=== PATIENT | female | born 1955 | race Caucasian/White ===

== ENCOUNTER → 2016-10-16 | Outpatient (CLI) | payer BC ==
[2016-10-16 09:50] LABS: ALT 37 U/L (9-52); AST 21 U/L (14-36); Alkaline Phosphatase 68 U/L (38-126); Anion Gap 9 mmol/L; Blood Urea Nitrogen 26 mg/dL (7-17); Carbon Dioxide 27 mmol/L (22-30); Chloride 107 mmol/L (98-107); Cholesterol 191 mg/dL (<200); Glucose 98 mg/dL (74-99); HDL Cholesterol 67 mg/dL (40-60); Non-African American GFR(MDRD) >60 (>60 ml/min/1.73 sqM); Potassium 4.6 mmol/L (3.5-5.1); Sodium 143 mmol/L (137-145); Total Bilirubin 0.7 mg/dL (0.2-1.3); Total Protein 6.7 g/dL (6.3-8.2); Triglycerides 63 mg/dL (<150)
== END ==
LOC: LABWHC1 08:21
PROVIDERS: ATTEND Family Medicine
DX: E78.2 Mixed hyperlipidemia (principal); I10 Essential (primary) hypertension
CPT/HCPCS: 36415; 80053; 80061

== ENCOUNTER → 2016-11-01 | Outpatient (CLI) | payer BC ==
--- NOTE | 2016-11-02 14:16 | MM ---
Reason for exam: screening (asymptomatic). Last mammogram was performed 16 years and 2 months ago. Physical Findings: A clinical breast exam by your physician is recommended on an annual basis and results should be correlated with mammographic findings. MG Screening Mammo w CAD Bilateral CC and MLO view(s) were taken. Prior study comparison: July 09, 2013, mammogram, performed at [facility]. April 24, 2011, mammogram, performed at [facility]. There are scattered fibroglandular densities. No significant changes when compared with prior studies. ASSESSMENT: Benign, BI-RAD 2 RECOMMENDATION: Routine screening mammogram of both breasts in 1 year.
== END | disposition home or self-care (01) ==
LOC: RADMAMWWP 10:09
PROVIDERS: ATTEND Family Medicine
DX: Z12.31 Encounter for screening mammogram for malignant neoplasm of breast (principal)

== ENCOUNTER → 2017-11-24 | Outpatient (CLI) | payer BC ==
[2017-11-24 09:24] LABS: ALT 70 U/L (9-52); AST 37 U/L (14-36); Alkaline Phosphatase 108 U/L (38-126); Anion Gap 13 mmol/L; Blood Urea Nitrogen 18 mg/dL (7-17); Carbon Dioxide 28 mmol/L (22-30); Chloride 104 mmol/L (98-107); Cholesterol 185 mg/dL (<200); Glucose 115 mg/dL (74-99); HDL Cholesterol 60 mg/dL (40-60); LDL Cholesterol,Calculated 110 mg/dL (0-99); Potassium 4.3 mmol/L (3.5-5.1); Sodium 145 mmol/L (137-145); Total Bilirubin 0.7 mg/dL (0.2-1.3); Total Protein 6.4 g/dL (6.3-8.2); Triglycerides 73 mg/dL (<150)
== END | disposition home or self-care (01) ==
LOC: LABWHC1 08:34
PROVIDERS: ATTEND Nurse Practitioner Family
DX: I10 Essential (primary) hypertension (principal)
CPT/HCPCS: 36415; 80053; 80061

== ENCOUNTER → 2018-02-18 | Outpatient (CLI) | payer BC ==
[2018-02-18 15:55] LABS: Basophils % (A) 0 %; Eosinophils # (A) 0.2 k/uL (0-0.7); Eosinophils % (A) 3 %; HGB 12.6 gm/dL (11.4-16.0); Lymphocytes # (A) 1.7 k/uL (1.0-4.8); Lymphocytes % (A) 24 %; MCH 31.5 pg (25.0-35.0); MCV 95.4 fL (80.0-100.0); Mean Platelet Volume 8.1; Monocytes # (A) 0.4 k/uL (0-1.0); Monocytes % (A) 6 %; Neutrophils # (A) 4.4 k/uL (1.3-7.7); Neutrophils % (A) 64 %; Platelet Count 269 k/uL (150-450); RBC 3.99 m/uL (3.80-5.40); RDW 12.8 % (11.5-15.5); WBC 6.9 k/uL (3.8-10.6)
[2018-02-18 16:02] LABS: ALT 60 U/L (9-52); AST 24 U/L (14-36); Alkaline Phosphatase 78 U/L (38-126); Anion Gap 7 mmol/L; Blood Urea Nitrogen 17 mg/dL (7-17); Calcium 9.6 mg/dL (8.4-10.2); Carbon Dioxide 29 mmol/L (22-30); Chloride 105 mmol/L (98-107); Glucose 136 mg/dL (74-99); Potassium 4.2 mmol/L (3.5-5.1); Sodium 141 mmol/L (137-145); Total Bilirubin 0.5 mg/dL (0.2-1.3); Total Protein 6.5 g/dL (6.3-8.2)
[2018-02-18 19:54] LABS: Erythrocyte Sedimentation Rate 17 mm/hr (0-20)
== END | disposition home or self-care (01) ==
LOC: LABWHC1 15:28
PROVIDERS: ATTEND Physician Assistant
DX: K51.30 Ulcerative (chronic) rectosigmoiditis without complications (principal)
CPT/HCPCS: 36415; 80053; 85025; 85652

== ENCOUNTER → 2018-02-20 | Outpatient (CLI) | payer BC ==
--- NOTE | 2018-02-21 10:07 | CT ---
EXAMINATION TYPE: CT abdomen pelvis wo/w con DATE OF EXAM: 02/20/2018 COMPARISON: 04/05/2016 INDICATION: Left lower quadrant abdominal pain x few months. DLP: 2286 mGycm, Automated exposure control for dose reduction was used. CONTRAST: 100ml mL of Isovue 300. Study performed with Oral Contrast TECHNIQUE: Axial images were obtained from above the diaphragm to the pubic rami in the axial plane a t 5 mm thick sections. Reconstructed images are reviewed on the computer in the coronal plane. FINDINGS: Limited CT sections are obtained the lung bases. The lung bases are clear. CT ABDOMEN: Pre and postcontrast imaging is performed. No abnormal enhancement following contrast adm inistration is evident. Liver: Normal Spleen: Normal Pancreas: Normal Adrenal glands: The adrenal glands are normal. Gallbladder: Normal Kidneys: No masses are evident. No hydronephrosis is present. No cysts are present. There is exten sive calcification throughout the kidneys, likely on the basis of medullary sponge kidney. Larger nadine cifications would include a posterior lateral right upper lobe calcification measuring 0.2 cm and a r ounded calcification in mid right kidney measuring 0.5 cm. Larger calcification at the inferior pole left kidney measures 0.4 x 0.8 cm. Postcontrast imaging is performed. No abnormal enhancement kidneys is evident. Aorta: Vascular calcification is within the aorta. Inferior vena cava: Normal. CT PELVIS: There is a long segment of thickening through the proximal sigmoid colon. Scattered diverticuli are t hroughout the colon. Significant Inflammatory change adjacent is not identified, consider mild divert iculitis. Evaluation of the sigmoid colon is recommended. Neoplasm should be considered. Mild diverti culitis can be considered. There are loops of bowel which are incompletely distended or lack oral con trast limiting their evaluation. Fecal debris is within the colon Appendix: Normal as visualized. Urinary bladder: Decompressed with limited evaluation Genitourinary structures: Uterus and ovaries are not identified Osseous structures: No suspicious lytic or sclerotic lesions. IMPRESSIONS: 1. Proximal to mid sigmoid colon appears to have thickening. Mild diverticulitis can be considered. Underlying neoplasm could be considered. Additional workup is recommended. This is an interval change . 2. Extensive calcifications through the bilateral kidneys without evidence of obstruction. Correlate medullary sponge kidney
== END | disposition home or self-care (01) ==
LOC: RADCTMAIN 15:16
PROVIDERS: ATTEND Internal Medicine Gastroenterology
DX: N28.89 Other specified disorders of kidney and ureter (principal)
CPT/HCPCS: 74178; Q9967

== ENCOUNTER 2018-03-18 09:00 | Observation (INO) | payer BC ==
[2018-03-18] MEDS ORDERED: ASPIRIN 81 MG PO STA (09:14)
[2018-03-18] MEDS ORDERED: NITROGLYCERIN OINT 1 INCH/GM PACKET TOPICAL STA (09:14)
--- NOTE | 2018-03-18 09:20 | ED ---
General Adult HPI - General Chief complaint: Chest Pain Stated complaint: chest pain Time Seen by Provider: 03/18/18 09:00 Source: patient, RN notes reviewed Mode of arrival: wheelchair Limitations: no limitations - History of Present Illness Initial comments: This is a 63-year-old female presents emergency Department complaining of chest pressure for the last week. Patient states she's had multiple episodes sometimes lasting only a few minutes and others lasting up to an hour. Patient states she's often nauseated with the chest pressure as well as diaphoretic. Patient denies any shortness of breath or difficulty breathing. Patient denies any recent fever chills or cough. Patient can come in initially because she believed to be secondary to her hiatal hernia. Patient denies any abdominal pain patient denies any vomiting or diarrhea. Patient denies any lightheadedness dizziness or near syncopal episode. Patient denies any headache patient denies any numbness or weakness. Patient states currently she is having some pressure across her chest. - Related Data Home Medications Medication Instructions Recorded Confirmed Mesalamine [Asacol Hd] 1,600 mg PO TID 05/13/14 03/18/18 Ramipril [Altace] 10 mg PO BID 05/13/14 03/18/18 Atorvastatin [Lipitor] 20 mg PO HS 05/11/16 03/18/18 Cetirizine HCl [Zyrtec] 10 mg PO DAILY 05/11/16 03/18/18 Cholecalciferol [Vitamin D3] 2,000 unit PO DAILY 05/11/16 03/18/18 Dicyclomine [Bentyl] 20 mg PO TID 05/11/16 03/18/18 Acetaminophen [Tylenol] 650 mg PO Q4H PRN 03/18/18 03/18/18 Famotidine [Pepcid] 20 mg PO DAILY 03/18/18 03/18/18 Propylene Glycol/Peg 400/Pf 1 dropper BOTH EYES DAILY 03/18/18 03/18/18 [Systane 0.3-0.4% Eye Drops] amLODIPine [Norvasc] 5 mg PO DAILY 03/18/18 03/18/18 Allergies Allergy/AdvReac Type Severity Reaction Status Date / Time No Known Allergies Allergy Verified 03/18/18 10:18 Review of Systems ROS Statement: Those systems with pertinent positive or pertinent negative responses have been documented in the HPI. ROS Other: All systems not noted in ROS Statement are negative. Past Medical History Past Medical History: COPD, GERD/Reflux, Hyperlipidemia, Hypertension Additional Past Medical History / Comment(s): hx.ulcerative colitis, kidney stones, seasonal allergies, diverticulitis, History of Any Multi-Drug Resistant Organisms: None Reported Past Surgical History: Adenoidectomy, Hysterectomy, Tonsillectomy Additional Past Surgical History / Comment(s): lithotripsy,colonoscopy Past Anesthesia/Blood Transfusion Reactions: No Reported Reaction Past Psychological History: No Psychological Hx Reported Smoking Status: Former smoker Past Alcohol Use History: None Reported Past Drug Use History: None Reported - Past Family History Mother Family Medical History: No Reported History General Exam - General Exam Comments Initial Comments: GENERAL: Patient is well-developed and well-nourished. Patient is nontoxic and well- hydrated and is in mild distress. ENT: Neck is soft and supple. No significant lymphadenopathy is noted. Oropharynx is clear. Moist mucous membranes. Neck has full range of motion without eliciting any pain. EYES: The sclera were anicteric and conjunctiva were pink and moist. Extraocular movements were intact and pupils were equal round and reactive to light. Eyelids were unremarkable. PULMONARY: Unlabored respirations. Good breath sounds bilaterally. No audible rales rhonchi or wheezing was noted. CARDIOVASCULAR: Patient is tachycardic at about 110 beats a minute ABDOMEN: Soft and nontender with normal bowel sounds. No palpable organomegaly was noted. There is no palpable pulsatile mass. SKIN: Skin is clear with no lesions or rashes and otherwise unremarkable. NEUROLOGIC: Patient is alert and oriented x3. Cranial nerves II through XII are grossly intact. Motor and sensory are also intact. Normal speech, volume and content. Symmetrical smile. MUSCULOSKELETAL: Normal extremities with adequate strength and full range of motion. No lower extremity swelling or edema. No calf tenderness. LYMPHATICS: No significant lymphadenopathy is noted PSYCHIATRIC: Normal psychiatric evaluation. Patient appears mildly anxious Limitations: no limitations Course Vital Signs 03/18/18 03/18/18 09:02 09:55 Temperature 98.1 F Pulse Rate 103 H 100 Respiratory 20 18 Rate Blood Pressure 138/83 136/66 O2 Sat by Pulse 97 99 Oximetry Medical Decision Making - Medical Decision Making EKG shows sinus tachycardia at 111 bpm CA interval is 138 QRSs 80 QT interval 336 QTC is 456. Patient's EKG shows Q waves in the inferior leads. Chest x-ray showed no acute normalities. I spoke with Dr. Garcia he agreed to admit the patient admitted the patient wrote admitting orders. Because of the unstable angina picture of this patient with her clinical symptoms I started her on heparin. I continued heparin and aspirin and nitroglycerin on the floor. - Lab Data Result diagrams: 03/18/18 09:03/18/18 09:28 Lab Results 03/18/18 03/18/18 03/18/18 Range/Units 09:28 09:28 09: WBC 7.2 (3.8-10.6) k/uL RBC 4.36 (3.80-5.40) m/uL Hgb 13.5 (11.4-16.0) gm/dL Hct 40.5 (34.0-46.0) % MCV 92.9 (80.0-100.0) fL MCH 31.1 (25.0-35.0) pg MCHC 33.5 (31.0-37.0) g/dL RDW 12.6 (11.5-15.5) % Plt Count 239 (150-450) k/uL Neutrophils % 72 % Lymphocytes % 17 % Monocytes % 6 % Eosinophils % 2 % Basophils % 0 % Neutrophils # 5.2 (1.3-7.7) k/uL Lymphocytes # 1.3 (1.0-4.8) k/uL Monocytes # 0.4 (0-1.0) k/uL Eosinophils # 0.1 (0-0.7) k/uL Basophils # 0.0 (0-0.2) k/uL PT (9.0-12.0) sec INR (<1.2) APTT (22.0-30.0) sec Sodium 143 (137-145) mmol/L Potassium 4.0 (3.5-5.1) mmol/L Chloride 108 H (98-107) mmol/L Carbon Dioxide 25 (22-30) mmol/L Anion Gap 10 mmol/L BUN 20 H (7-17) mg/dL Creatinine 0.69 (0.52-1.04) mg/dL Est GFR (CKD-EPI)AfAm >90 (>60 ml/min/1.73 sqM) Est GFR (CKD-EPI)NonAf >90 (>60 ml/min/1.73 sqM) Glucose 133 H (74-99) mg/dL Calcium 9.3 (8.4-10.2) mg/dL Magnesium 2.0 (1.6-2.3) mg/dL Total Bilirubin 0.7 (0.2-1.3) mg/dL AST 33 (14-36) U/L ALT 37 (9-52) U/L Alkaline Phosphatase 74 (38-126) U/L Total Creatine Kinase 45 (30-135) U/L CK-MB (CK-2) 0.2 (0.0-2.4) ng/mL CK-MB (CK-2) Rel Index 0.4 Troponin I <0.012 (0.000-0.034) ng/mL Total Protein 6.9 (6.3-8.2) g/dL Albumin 4.2 (3.5-5.0) g/dL 03/18/18 Range/Units 09:28 WBC (3.8-10.6) k/uL RBC (3.80-5.40) m/uL Hgb (11.4-16.0) gm/dL Hct (34.0-46.0) % MCV (80.0-100.0) fL MCH (25.0-35.0) pg MCHC (31.0-37.0) g/dL RDW (11.5-15.5) % Plt Count (150-450) k/uL Neutrophils % % Lymphocytes % % Monocytes % % Eosinophils % % Basophils % % Neutrophils # (1.3-7.7) k/uL Lymphocytes # (1.0-4.8) k/uL Monocytes # (0-1.0) k/uL Eosinophils # (0-0.7) k/uL Basophils # (0-0.2) k/uL PT 9.7 (9.0-12.0) sec INR 1.0 (<1.2) APTT 23.5 (22.0-30.0) sec Sodium (137-145) mmol/L Potassium (3.5-5.1) mmol/L Chloride (98-107) mmol/L Carbon Dioxide (22-30) mmol/L Anion Gap mmol/L BUN (7-17) mg/dL Creatinine (0.52-1.04) mg/dL Est GFR (CKD-EPI)AfAm (>60 ml/min/1.73 sqM) Est GFR (CKD-EPI)NonAf (>60 ml/min/1.73 sqM) Glucose (74-99) mg/dL Calcium (8.4-10.2) mg/dL Magnesium (1.6-2.3) mg/dL Total Bilirubin (0.2-1.3) mg/dL AST (14-36) U/L ALT (9-52) U/L Alkaline Phosphatase (38-126) U/L Total Creatine Kinase (30-135) U/L CK-MB (CK-2) (0.0-2.4) ng/mL CK-MB (CK-2) Rel Index Troponin I (0.000-0.034) ng/mL Total Protein (6.3-8.2) g/dL Albumin (3.5-5.0) g/dL Critical Care Time Critical Care Time: Yes Total Critical Care Time: 35 Disposition Clinical Impression: Unstable angina pectoris Disposition: ADMITTED IP TO THIS HOSP Referrals: Hunter Georges III, MD [Primary Care Provider] - 1-2 days Time of Disposition: 11:04
[2018-03-18 09:41] LABS: Basophils % (A) 0 %; Eosinophils # (A) 0.1 k/uL (0-0.7); Eosinophils % (A) 2 %; HCT 40.5 % (34.0-46.0); HGB 13.5 gm/dL (11.4-16.0); Lymphocytes # (A) 1.3 k/uL (1.0-4.8); Lymphocytes % (A) 17 %; MCH 31.1 pg (25.0-35.0); MCHC 33.5 g/dL (31.0-37.0); MCV 92.9 fL (80.0-100.0); Mean Platelet Volume 7.3; Monocytes # (A) 0.4 k/uL (0-1.0); Monocytes % (A) 6 %; Neutrophils # (A) 5.2 k/uL (1.3-7.7); Neutrophils % (A) 72 %; Platelet Count 239 k/uL (150-450); RBC 4.36 m/uL (3.80-5.40); RDW 12.6 % (11.5-15.5); WBC 7.2 k/uL (3.8-10.6)
--- NOTE | 2018-03-18 09:47 | P.CRDCN ---
History of Present Illness History of present illness: This is Dr. Massey dictating a consult on this patient The patient was interviewed and examined by me in the emergency room room #24 IMPRESSION / ASSESSMENT: Recurrent pressure-like sensation in the mid sternum spreading leftwards and sometimes all across the chest Pounding sensation in the heart Twelve-lead ECG when compared with that from 2010 shows a 0[address] depression with T-wave inversions in the inferior lateral leads Hypertension, on ramipril 10 mg twice daily and amlodipine Dyslipidemia, on atorvastatin 20 mg by mouth daily Elevated CPKs on a higher doses of atorvastatin the past Recent colitis/diverticulitis and antibiotics were recently stopped but no severe diarrhea at this point PLAN: 3 serial cardiac enzymes CMP CBC Start home medications including enalapril and amlodipine atorvastatin, start baby aspirin D-dimer HPI Recurrent pressure-like sensation/heaviness in the mid sternum mid chest area that spreads to was the left side mostly but then also all across the front of the chest. Recurrent episodes for the last 3 weeks. She feels she has to burp and after doing so she only gets partial relief. Pounding sensation in the chest but no loss of consciousness. Possibly a little short of breath ROS: No fever chills or rigors, no cough, phlegm or expectoration, no nausea, vomiting or diarrhea, recent bout of loose stools and colitis which seems to have resolved no hematuria, dysuria, no musculoskeletal complaints, no strokes or seizures, no skin lesions. EXAMINATION On examination Afebrile 98.1F, pulse rate 103 bpm, blood pressure 138/83 mmHg, normal pulse ox Normal heart sounds no murmurs no gallops no rub Normal breath sounds no rhonchi no crackles Abdomen is soft nontender Extremities warm no edema No JVD REVIEW OF LABS, ECG ECG shows new changes from 2010 Hemoglobin 13.5 white count normal Past Medical History Past Medical History: COPD, GERD/Reflux, Hyperlipidemia, Hypertension Additional Past Medical History / Comment(s): hx.ulcerative colitis, kidney stones, seasonal allergies, diverticulitis, History of Any Multi-Drug Resistant Organisms: None Reported Past Surgical History: Adenoidectomy, Hysterectomy, Tonsillectomy Additional Past Surgical History / Comment(s): lithotripsy,colonoscopy Past Anesthesia/Blood Transfusion Reactions: No Reported Reaction Past Psychological History: No Psychological Hx Reported Smoking Status: Former smoker Past Alcohol Use History: None Reported Past Drug Use History: None Reported - Past Family History Mother Family Medical History: No Reported History Medications and Allergies Home Medications Medication Instructions Recorded Confirmed Type Mesalamine [Asacol Hd] 1,600 mg PO TID 05/13/14 05/11/16 History Montelukast [Singulair] 10 mg PO HS 05/13/14 05/11/16 History Omeprazole [PriLOSEC] 20 mg PO DAILY PRN 05/13/14 05/11/16 History Ramipril [Altace] 5 mg PO BID 05/13/14 05/11/16 History Atorvastatin [Lipitor] 20 mg PO HS 05/11/16 05/11/16 History Cetirizine HCl [Zyrtec] 10 mg PO DAILY 05/11/16 05/11/16 History Cholecalciferol [Vitamin D3] 2,000 unit PO DAILY 05/11/16 05/11/16 History Dicyclomine [Bentyl] 10 mg PO Q4-6H PRN 05/11/16 05/11/16 History Lipo-Favonoid 1 tab PO DAILY 05/11/16 05/11/16 History Magnesium 200 mg PO DAILY 05/11/16 05/11/16 History Allergies Allergy/AdvReac Type Severity Reaction Status Date / Time No Known Allergies Allergy Verified 03/18/18 09:04 Physical Exam Vitals: Vital Signs Temp Pulse Resp BP Pulse Ox 03/18/18 09:02 98.1 F 103 H 20 138/83 97 Intake and Output 03/17/18 03/18/18 03/18/18 22:59 06:59 14:59 Other: Weight 84.822 kg Results 03/18/18 09:28 CBC 03/18/18 Range/Units 09:28 WBC 7.2 (3.8-10.6) k/uL RBC 4.36 (3.80-5.40) m/uL Hgb 13.5 (11.4-16.0) gm/dL Hct 40.5 (34.0-46.0) % Plt Count 239 (150-450) k/uL Intake and Output 03/17/18 03/18/18 03/18/18 22:59 06:59 14:59 Other: Weight 84.822 kg Patient Weight 03/19/18 06:59 Weight 84.822 kg 03/18/18 09:28
[2018-03-18 09:52] LABS: ALT 37 U/L (9-52); AST 33 U/L (14-36); Albumin 4.2 g/dL (3.5-5.0); Alkaline Phosphatase 74 U/L (38-126); Anion Gap 10 mmol/L; Blood Urea Nitrogen 20 mg/dL (7-17); Calcium 9.3 mg/dL (8.4-10.2); Carbon Dioxide 25 mmol/L (22-30); Chloride 108 mmol/L (98-107); Glucose 133 mg/dL (74-99); Sodium 143 mmol/L (137-145); Total Bilirubin 0.7 mg/dL (0.2-1.3); Total Protein 6.9 g/dL (6.3-8.2)
[2018-03-18 09:53] LABS: Partial Thromboplastin Time 23.5 sec (22.0-30.0); Prothrombin Time 9.7 sec (9.0-12.0)
--- NOTE | 2018-03-18 09:57 | XR ---
EXAMINATION TYPE: XR chest 2V DATE OF EXAM: 03/18/2018 COMPARISON: 09/22/2010 TECHNIQUE: PA and lateral views submitted. HISTORY: Chest pain FINDINGS: The lungs are clear and there is no pneumothorax, pleural effusion, or focal pneumonia. Biapical pl eural thickening. Hyperinflation is COPD. Chronic rib deformities noted. IMPRESSION: 1. No acute process.
[2018-03-18 10:12] LABS: Creatine Kinase 45 U/L (30-135)
[2018-03-18 10:24] LABS: Creatine Kinase MB 0.2 ng/mL (0.0-2.4); Troponin I <0.012 ng/mL (0.000-0.034)
[2018-03-18] MEDS ORDERED: ATORVASTATIN 20 MG TAB PO SCH ×3 (11:00→21:00)
[2018-03-18] MEDS ORDERED: HEPARIN SODIUM,PORCINE 5,000 UNIT/ML 1 ML VIAL IV ONE (11:04)
[2018-03-18] MEDS ORDERED: HEPARIN SOD,PORK IN 0.45% NACL 25,000 UNIT in 0.45% NACL 1 500ML.BAG IV SCH (11:15)
[2018-03-18] MEDS ORDERED: NITROGLYCERIN SL TABS 0.4 MG TAB SUBLINGUAL PRN (11:33)
[2018-03-18] MEDS: SODIUM CHLORIDE 0.9% 1,000 ML IV SCH (11:50)
[2018-03-18] MEDS: METOPROLOL TARTRATE 25 MG TAB PO SCH ×2 (12:00→20:24)
[2018-03-18] MEDS: LISINOPRIL 20 MG TAB PO SCH (12:00)
[2018-03-18] MEDS ORDERED: ACETAMINOPHEN TAB 325 MG TAB PO PRN (12:44)
[2018-03-18] MEDS: NITROGLYCERIN OINT 1 INCH/GM PACKET TOPICAL SCH ×2 (13:03→17:24)
--- NOTE | 2018-03-18 13:33 | P.HPIM ---
History of Present Illness 63-year-old pleasant female came in with epigastric burning sensation patient is a recent hospital physician for diverticulitis may have stress ulcerations which is causing gastro-esophageal reflux disease patient the pain is burning sensation associated with the nausea precipitated by food. Patient has multiple such episodes last 2-3 days and the last for a few hours mild to moderate in severity patient was bit diaphoretic as well denied any shortness of breath orthopnea patient had any fever chills cough patient chest pain is nonpruritic. Patient has an elevated d-dimer because of which is CAT scan was ordered by cardiology. Patient will also comparing of palpitations patient is in fact tachycardic sinus tachycardia patient was started on Norvasc about the few months ago may be contributing to her sinus tachycardia considering her tachycardia related d-dimer it's appropriate to obtain a CAT scan to rule out pulmonary embolism. But her tachycardia is mostly secondary to calcium channel ethel which is being discontinued and metoprolol was added instead. Patient is on CHATO inhibitor for blood pressures which is being continued. We'll rule out acute coronary syndromes. Review of Systems REVIEW OF SYSTEMS: CONSTITUTIONAL: No fever, no malaise, no fatigue. HEENT: No recent visual problems or hearing problems. Denied any sore throat. CARDIOVASCULAR: No orthopnea, PND, no syncope. PULMONARY: No shortness of breath, no cough, no hemoptysis. GASTROINTESTINAL: No diarrhea, no vomiting, no abdominal pain. Normoactive bowel sounds. NEUROLOGICAL: No headaches, no weakness, no numbness. HEMATOLOGICAL: Denies any bleeding or petechiae. GENITOURINARY: Denies any burning micturition, frequency, or urgency. MUSCULOSKELETAL/RHEUMATOLOGICAL: Denies any joint pain, swelling, or any muscle pain. ENDOCRINE: Denies any polyuria or polydipsia. The rest of the 14-point review of systems is negative. Past Medical History Past Medical History: COPD, Eye Disorder, GERD/Reflux, Hyperlipidemia, Hypertension, Osteoarthritis (OA), Renal Disease Additional Past Medical History / Comment(s): Ulcerative colitis, diverticulitis , benign colon polyps, nephrolithiasis, starting of bilateral cataracts, L leg varicosity, seasonal allergies. History of Any Multi-Drug Resistant Organisms: None Reported Past Surgical History: Adenoidectomy, Hysterectomy, Tonsillectomy Additional Past Surgical History / Comment(s): lithotripsies,colonoscopy with polypectomy Past Anesthesia/Blood Transfusion Reactions: No Reported Reaction Smoking Status: Former smoker - Past Family History Mother Family Medical History: Cancer Additional Family Medical History / Comment(s): Pt believes her mother had throat cancer. Father Family Medical History: Myocardial Infarction ([place]) Additional Family Medical History / Comment(s): Father at the age of 83 yrs from a [place] Medications and Allergies Home Medications Medication Instructions Recorded Confirmed Type Mesalamine [Asacol Hd] 1,600 mg PO TID 05/13/14 03/18/18 History Ramipril [Altace] 10 mg PO BID 05/13/14 03/18/18 History Atorvastatin [Lipitor] 20 mg PO HS 05/11/16 03/18/18 History Cetirizine HCl [Zyrtec] 10 mg PO DAILY 05/11/16 03/18/18 History Cholecalciferol [Vitamin D3] 2,000 unit PO DAILY 05/11/16 03/18/18 History Dicyclomine [Bentyl] 20 mg PO TID 05/11/16 03/18/18 History Acetaminophen [Tylenol] 650 mg PO Q4H PRN 03/18/18 03/18/18 History Famotidine [Pepcid] 20 mg PO DAILY 03/18/18 03/18/18 History Propylene Glycol/Peg 400/Pf 1 dropper BOTH EYES DAILY 03/18/18 03/18/18 History [Systane 0.3-0.4% Eye Drops] amLODIPine [Norvasc] 5 mg PO DAILY 03/18/18 03/18/18 History Allergies Allergy/AdvReac Type Severity Reaction Status Date / Time No Known Allergies Allergy Verified 03/18/18 10:18 Physical Exam Vitals: Vital Signs Temp Pulse Pulse Resp BP BP Pulse Ox 03/18/18 12:10 98.1 F 102 H 18 134/80 95 03/18/18 12:01 97.8 F 109 H 16 110/62 96 03/18/18 11:12 98 16 138/65 98 03/18/18 09:55 100 18 136/66 99 03/18/18 09:02 98.1 F 103 H 20 138/83 97 Intake and Output 03/17/18 03/18/18 03/18/18 22:59 06:59 14:59 Other: Weight 83.9 kg PHYSICAL EXAMINATION: GENERAL: The patient is alert and oriented x3, not in any acute distress. Well developed, well nourished. HEENT: Pupils are round and equally reacting to light. EOMI. No scleral icterus. No conjunctival pallor. Normocephalic, atraumatic. No pharyngeal erythema. No thyromegaly. CARDIOVASCULAR: S1 and S2 present. No murmurs, rubs, or gallops. PULMONARY: Chest is clear to auscultation, no wheezing or crackles. ABDOMEN: Soft, nontender, nondistended, normoactive bowel sounds. No palpable organomegaly. MUSCULOSKELETAL: No joint swelling or deformity. EXTREMITIES: No cyanosis, clubbing, or pedal edema. NEUROLOGICAL: Gross neurological examination did not reveal any focal deficits. SKIN: No rashes. Results CBC & Chem 7: 03/18/18 09:28 03/18/18 09:28 Labs: Abnormal Lab Results - Last 24 Hours (Table) 03/18/18 03/18/18 Range/Units 09:28 09:28 D-Dimer 1.13 H (<0.60) mg/L FEU Chloride 108 H (98-107) mmol/L BUN 20 H (7-17) mg/dL Glucose 133 H (74-99) mg/dL Thrombosis Risk Factor Assmnt - Choose All That Apply Any of the Below Risk Factors Present?: Yes Each Factor Represents 1 point: Abnormal pulmonary function (COPD), Obesity ( BMI >25) Other Risk Factors: Yes Each Risk Factor Represents 2 Points: Age 61-74 years Other congenital or acquired thrombophilia - If yes, enter type in comment: No Thrombosis Risk Factor Assessment Total Risk Factor Score: 4 Thrombosis Risk Factor Assessment Level: Moderate Risk Assessment and Plan Plan: -Epigastric abdominal pain and chest pain: Most probably gastroesophageal reflux disease, we will rule out acute medicine syndromes with the EKGs and troponins and cardiology evaluated the patient. Patient will be started on Protonix patient probably has stress ulcerations from her recent hospitalizations -Palpitations: Secondary to calcium channel ethel-amlodipine, patient was started on beta ethel and calcium channel ethel was discontinued -COPD without any acute exacerbation -Gastroesophageal reflux disease -hyperlipidemia next and-hypertension -History of ulcerative colitis with recent diverticulitis -Elevated d-dimer rule out PE as mentioned above -For above-mentioned chronic medical problems patient will be resumed and continued on appropriate home medications.
[2018-03-18] MEDS: PANTOPRAZOLE 40 MG/10 ML VIAL IVP SCH (14:53)
[2018-03-18 15:52] LABS: Creatine Kinase 37 U/L (30-135)
[2018-03-18] MEDS ORDERED: BALSALAZIDE DISODIUM 750 MG CAPSULE PO SCH (16:00)
[2018-03-18 16:06] LABS: Creatine Kinase MB <0.2 ng/mL (0.0-2.4); Troponin I <0.012 ng/mL (0.000-0.034)
[2018-03-18] MEDS: DICYCLOMINE 10 MG CAP PO SCH ×2 (17:22→20:25)
--- NOTE | 2018-03-18 18:36 | CT ---
EXAMINATION TYPE: CT angio chest with contrast and with 3-D reconstruction renderings DATE OF EXAM: 03/18/2018 5:04 PM COMPARISON: The liver is HISTORY: Shortness of breath and elevated d-dimer. CT DLP: 416 mGycm Automated exposure control for dose reduction was used. CONTRAST: CTA scan of the thorax is performed with IV Contrast, patient injected with 69ml mL of Isovue 370, pu lmonary embolism protocol. 3-D reconstructions. FINDINGS: LUNGS: The lungs are grossly clear, there is no concerning parenchymal mass or nodule identified. T here is no pleural effusion or pneumothorax seen. The tracheobronchial tree is patent. MEDIASTINUM: There is satisfactory enhancement of the pulmonary artery and its branches, there is no CT evidence for pulmonary embolism. There are no greater than 1 cm hilar or mediastinal lymph nodes. The aorta is unremarkable. No cardiomegaly. Left and right coronary calcifications noted. No perica rdial effusion is seen. OTHER: No additional significant abnormality is seen. IMPRESSION: 1. NO ACUTE PROCESS; SPECIFICALLY,NEGATIVE FOR PULMONARY EMBOLISM. 2. CORONARY CALCIFICATIONS NOTED.
[2018-03-18] MEDS ORDERED: HEPARIN SODIUM,PORCINE 5,000 UNIT/ML 1 ML VIAL IV PRN (18:45)
[2018-03-18] MEDS: ASACOL PO SCH ×2 (18:51→20:25)
[2018-03-18 19:46] VITALS: RESP 16
[2018-03-18 21:59] LABS: Creatine Kinase 38 U/L (30-135)
[2018-03-18 22:13] LABS: Creatine Kinase MB <0.2 ng/mL (0.0-2.4); Troponin I <0.012 ng/mL (0.000-0.034)
[2018-03-18 22:19] LABS: Cholesterol 209 mg/dL (<200); HDL Cholesterol 49 mg/dL (40-60); LDL Cholesterol,Calculated 122 mg/dL (0-99); Triglycerides 192 mg/dL (<150)
[2018-03-19] MEDS: NITROGLYCERIN OINT 1 INCH/GM PACKET TOPICAL SCH ×3 (05:45→14:11)
[2018-03-19] MEDS ORDERED: LORATADINE 10 MG TAB PO SCH (09:00)
[2018-03-19] MEDS ORDERED: ARTIFICIAL TEARS-HYPROMELLOSE DROPS 15 ML BTL BOTH EYES SCH (09:00)
[2018-03-19] MEDS ORDERED: FAMOTIDINE 20 MG TAB PO SCH (09:00)
[2018-03-19] MEDS ORDERED: ASPIRIN 325 MG TAB PO SCH (09:00)
[2018-03-19] MEDS ORDERED: AMINOPHYLLINE 500 MG/20 ML VIAL IV PRN (09:35)
[2018-03-19] MEDS ORDERED: REGADENOSON 0.4 MG/5 ML SYRINGE IV ONE (09:35)
[2018-03-19] MEDS: DICYCLOMINE 10 MG CAP PO SCH (10:17)
[2018-03-19] MEDS: PANTOPRAZOLE 40 MG/10 ML VIAL IVP SCH (10:17)
[2018-03-19] MEDS: ASACOL PO SCH (10:17)
[2018-03-19] MEDS ORDERED: AMINOPHYLLINE 500 MG/20 ML VIAL IV ONE (11:20)
[2018-03-19] MEDS ORDERED: CHOLECALCIFEROL 1,000 UNIT TAB PO SCH (12:00)
--- NOTE | 2018-03-19 12:19 | P.STRESS ---
- Stress Test Note Stress Test Results/Findings: Exam Performed: NM stress cardiolite complete Exam Date: 03/19/18 Reason for Exam: Chest Pain Height: 5 ft 6 in Weight: 83.461 kg Protocol: Lexiscan Cardiolite Stage: Duration of Exercise: Resting Heart Rate: 79 Resting Blood Pressure: 141/70 Maximum Achieved Heart Rate: 119 Maximum Achieved Blood Pressure: 165/75 85% PMHR: 133 100% PMHR: 156 METS: N/A Technologist Comment: 150 mg of Aminophylline administered Stress Test Results/Findings: This is a 63-year-old female was admitted to the hospital with complaints of chest pain and palpitations. She has history of hypertension, hypercholesterolemia and smoking history in the past. Stress data: Baseline EKG showed sinus rhythm with normal [place] and QRS duration. Blood pressure at rest is 140/70 with pulse rate of 79. A standard dose of Lexiscan was infused. EKGs taken during and after the exercise did not reveal any changes to suggest ischemia. Final impression: #1. Negative Lexiscan stress test #2. Report on the nuclear images to be given by the radiologist
--- NOTE | 2018-03-19 12:21 | NM ---
EXAMINATION TYPE: NM stress lexiscan cardiolite DATE OF EXAM: 03/19/2018 COMPARISON: NONE HISTORY: Chest pain TECHNIQUE: After the intravenous administration of 9.0 mCi Tc 99m Sestamibi - Cardiolite resting SPE CT images acquired 45 minutes post injection. The patient received 0.4mg Lexiscan, 24.0 mCi Tc 99m Sestamibi - Stress images obtained [address] injection FINDINGS: Review of stress and rest SPECT images demonstrates no distinct perfusion abnormality. Gated analysi s shows normal wall motion with an estimated left ventricular ejection fraction of 69 %. IMPRESSION: No scintigraphic evidence for reversible ischemia.
--- NOTE | 2018-03-19 12:34 | P.PN ---
Subjective Mrs. Corado seen and examined resting comfortably in bed with family at the bedside. She denies any ongoing chest pain, shortness of breath, dizziness or palpitations. Telemetry tracings have been unremarkable. D-dimer came in to be elevated yesterday and CTA chest was performed revealing no evidence of PE with coronary calcifications noted. Cardiac enzymes negative 3, LDL 122, HDL 49, triglycerides 1 9200 cholesterol 209. Blood pressure 107/69 heart rate 83 afebrile maintaining oxygen saturation on room air. Objective - Vital Signs Vital signs: Vital Signs Temp 98.3 F 03/19/18 07:54 Pulse 83 03/19/18 07:54 Resp 16 03/19/18 08:00 BP 107/69 03/19/18 07:54 Pulse Ox 95 03/19/18 07:54 Intake & Output 03/18/18 03/19/18 03/19/18 18:59 06:59 18:59 Intake Total 800.404 Balance 800.404 Weight 83.9 kg 83.461 kg Intake: Intake, IV Titration 140.404 Amount Heparin Sod,Pork in 0.45% 140.404 NaCl 25,000 unit In 0.45 % NaCl 1 500ml.bag @ 11.8 UNITS/KG/HR 20.01 mls/hr IV .Q24H SEBASTIEN Rx#: [id number] Oral 660 Other: Voiding Method Toilet Toilet # Voids 1 - Exam GENERAL: Well-appearing, well-nourished and in no acute distress. NECK: Supple without JVD or thyromegaly. LUNGS: Breath sounds clear to auscultation bilaterally. Respiration equal and unlabored. No wheezes, rales or rhonchi. HEART: Regular rate and rhythm without murmurs, rubs or gallops. S1 and S2 heard. EXTREMITIES: Normal range of motion, no edema. No clubbing or cyanosis. Peripheral pulses intact. - Labs CBC & Chem 7: 03/18/18 09:28 03/18/18 09:28 Labs: Abnormal Lab Results - Last 24 Hours (Table) 03/18/18 03/18/18 03/18/18 Range/Units 09:28 09:28 18:22 APTT 36.1 H (22.0-30.0) sec D-Dimer 1.13 H (<0.60) mg/L FEU Triglycerides 192 H (<150) mg/dL Cholesterol 209 H (<200) mg/dL LDL Cholesterol, Calc 122 H (0-99) mg/dL 03/19/18 Range/Units 00:40 APTT 94.7 H (22.0-30.0) sec D-Dimer (<0.60) mg/L FEU Triglycerides (<150) mg/dL Cholesterol (<200) mg/dL LDL Cholesterol, Calc (0-99) mg/dL Assessment and Plan Assessment: ASSESSMENT Chest pain, atypical. An acute coronary event has been ruled out. Hypertension, Dyslipidemia, intolerant to higher dose of statin in the past Recent colitis/diverticulitis, antibiotics complete one week ago PLAN An acute coronary event has been ruled out. Discontinue heparin infusion and Nitropaste. Perform Lexiscan stress test to assess for reversible cardiac ischemia. Dr. Massey discontinued amlodipine yesterday and started on lopressor 25 mg BID. If stress test is normal she is stable from a cardiac perspective. Follow up with Dr. Massey in 3-4 weeks. Nurse Practitioner note has been reviewed, I agree with a documented findings and plan of care. Patient was seen and examined.
[2018-03-19] MEDS: LISINOPRIL 20 MG TAB PO SCH (12:37)
[2018-03-19] MEDS: METOPROLOL TARTRATE 25 MG TAB PO SCH (12:37)
[2018-03-19] MEDS: SODIUM CHLORIDE 0.9% 1,000 ML IV SCH (12:39)
[2018-03-19 12:42] VITALS: BP 130/80; PULSE 95; TEMP 98.5
--- NOTE | 2018-03-19 13:41 | P.DS ---
Providers Date of admission: 03/18/18 11:34 Attending physician: Ignacio Garcia Consults: 03/18/18 11:34 Consult Physician Urgent Consulting Provider: [facility] Consult Reason/Comments: Unstable angina Do you want consulting provider notified?: Yes Primary care physician: Hunter Michelle [facility] Course: 63-year-old pleasant female came in with epigastric burning sensation patient is a recent hospital physician for diverticulitis may have stress ulcerations which is causing gastro-esophageal reflux disease patient the pain is burning sensation associated with the nausea precipitated by food. Patient has multiple such episodes last 2-3 days and the last for a few hours mild to moderate in severity patient was bit diaphoretic as well denied any shortness of breath orthopnea patient had any fever chills cough patient chest pain is nonpruritic. Patient has an elevated d-dimer because of which is CAT scan was ordered by cardiology. Patient will also comparing of palpitations patient is in fact tachycardic sinus tachycardia patient was started on Norvasc about the few months ago may be contributing to her sinus tachycardia considering her tachycardia related d-dimer it's appropriate to obtain a CAT scan to rule out pulmonary embolism. But her tachycardia is mostly secondary to calcium channel ethel which is being discontinued and metoprolol was added instead. Patient is on CHATO inhibitor for blood pressures which is being continued. We'll rule out acute coronary syndromes. 03/19/2018 Patient underwent stress test Lexiscan stress test which was negative for any inducible ischemia patient will be discharged today in stable medical condition to home, amlodipine will be discontinued because of tachycardia and patient was started on metoprolol instead. Assessment and Plan Plan: -Epigastric abdominal pain and chest pain: Most probably gastroesophageal reflux disease, stresses is negative -Palpitations: Secondary to calcium channel ethel-amlodipine, patient was started on beta ethel and calcium channel ethel was discontinued -COPD without any acute exacerbation -Gastroesophageal reflux disease -hyperlipidemia -hypertension -History of ulcerative colitis with recent diverticulitis -Elevated d-dimer rule out PE as mentioned above Patient Condition at Discharge: Serious Plan - Discharge Summary Discharge Rx Participant: No New Discharge Prescriptions: New Metoprolol Tartrate [Lopressor] 25 mg PO BID #60 tab Omeprazole [PriLOSEC] 40 mg PO AC-BRKFST #30 capsule. Continue Ramipril [Altace] 10 mg PO BID Mesalamine [Asacol Hd] 1,600 mg PO TID Dicyclomine [Bentyl] 20 mg PO TID Cholecalciferol [Vitamin D3] 2,000 unit PO DAILY Atorvastatin [Lipitor] 20 mg PO HS Cetirizine HCl [Zyrtec] 10 mg PO DAILY Propylene Glycol/Peg 400/Pf [Systane 0.3-0.4% Eye Drops] 1 dropper BOTH EYES DAILY Acetaminophen [Tylenol] 650 mg PO Q4H PRN PRN Reason: Pain Discontinued amLODIPine [Norvasc] 5 mg PO DAILY Famotidine [Pepcid] 20 mg PO DAILY Discharge Medication List Mesalamine [Asacol Hd] 1,600 mg PO TID 05/13/14 [History] Ramipril [Altace] 10 mg PO BID 05/13/14 [History] Atorvastatin [Lipitor] 20 mg PO HS 05/11/16 [History] Cetirizine HCl [Zyrtec] 10 mg PO DAILY 05/11/16 [History] Cholecalciferol [Vitamin D3] 2,000 unit PO DAILY 05/11/16 [History] Dicyclomine [Bentyl] 20 mg PO TID 05/11/16 [History] Acetaminophen [Tylenol] 650 mg PO Q4H PRN 03/18/18 [History] Propylene Glycol/Peg 400/Pf [Systane 0.3-0.4% Eye Drops] 1 dropper BOTH EYES DAILY 03/18/18 [History] Metoprolol Tartrate [Lopressor] 25 mg PO BID #60 tab 03/19/18 [Rx] Omeprazole [PriLOSEC] 40 mg PO AC-BRKFST #30 capsule. 03/19/18 [Rx] Follow up Appointment(s)/Referral(s): Zhen Massey MD [STAFF PHYSICIAN] - 04/10/18 10:45 am Hunter Georges III, MD [Primary Care Provider] - 1-2 days Patient Instructions/Handouts: Angina (DC) Discharge Disposition: HOME SELF-CARE
== END 2018-03-19 13:35 | disposition home or self-care (01) ==
LOC: EC 09:00 → 3OBS 11:34
PROVIDERS: ADMIT Internal Medicine; ATTEND Internal Medicine
DX: R10.13 Epigastric pain (principal); R07.89 Other chest pain; R00.2 Palpitations; R11.0 Nausea; R00.0 Tachycardia, unspecified; R61 Generalized hyperhidrosis; J44.9 Chronic obstructive pulmonary disease, unspecified; K21.9 Gastro-esophageal reflux disease without esophagitis; E78.5 Hyperlipidemia, unspecified; I10 Essential (primary) hypertension; R79.89 Other specified abnormal findings of blood chemistry; K51.90 Ulcerative colitis, unspecified, without complications; K57.92 Diverticulitis of intestine, part unspecified, without perforation or abscess without bleeding; J30.2 Other seasonal allergic rhinitis; N28.9 Disorder of kidney and ureter, unspecified; M19.90 Unspecified osteoarthritis, unspecified site; H26.9 Unspecified cataract; Z79.899 Other long term (current) drug therapy; Z87.442 Personal history of urinary calculi; Z87.891 Personal history of nicotine dependence; Z86.010 Personal history of colon polyps; Z82.49 Family history of ischemic heart disease and other diseases of the circulatory system; E66.9 Obesity, unspecified; Z68.29 Body mass index [BMI] 29.0-29.9, adult
CPT/HCPCS: 99291; 96365; 96376; 36415; 93005; 93017; 85379; 80061; 80053; 82550; 82553; 83735; 84484; 85025; 85610; 85730 ×2; 71046; 71275; 78452; G0378 ×2; A9500; J1644 ×2; J0280; J2785; C9113 ×2; Q9967; 96366; 96375

== ENCOUNTER → 2018-04-26 | Outpatient (CLI) | payer BC ==
[2018-04-26 08:55] LABS: HCT 40.2 % (34.0-46.0); HGB 13.3 gm/dL (11.4-16.0); MCH 31.2 pg (25.0-35.0); MCHC 33.1 g/dL (31.0-37.0); MCV 94.3 fL (80.0-100.0); Mean Platelet Volume 7.7; Platelet Count 251 k/uL (150-450); RBC 4.26 m/uL (3.80-5.40); RDW 12.6 % (11.5-15.5); WBC 5.2 k/uL (3.8-10.6)
[2018-04-26 19:37] LABS: Albumin 4.5 g/dL (3.80-4.90); Albumin/Globulin Ratio 2.5 (1.20-2.10); Calcium 9.3 mg/dL (8.7-10.3); Globulin 1.8 g/dL (2.1-3.7); LDL Cholesterol,Calculated 128.4 mg/dL (0.0-131.0); Potassium 4.6 mmol/L (3.5-5.5); Total Bilirubin 0.5 mg/dL (0.2-1.2); Total Protein 6.3 g/dL (6.2-8.2); VLDL Calculation 21.6 mg/dL (5.00-40.00)
== END | disposition home or self-care (01) ==
LOC: LABWHC1 08:19
PROVIDERS: ATTEND Nurse Practitioner Family
DX: I10 Essential (primary) hypertension (principal); E56.9 Vitamin deficiency, unspecified; E78.2 Mixed hyperlipidemia
CPT/HCPCS: 36415; 80053; 80061; 82306; 85027

== ENCOUNTER 2018-05-01 08:39 | Day surgery (SDC) | payer BC ==
[2018-04-29 10:52] VITALS: BMI 29.9
[~2018-05-01 08:39] MED LIST: HYDROmorphone 1 MG/ML 1 ML SYRINGE IVP PRN; LACTATED RINGERS 1,000 ML IV SCH
[2018-05-01 09:56] VITALS: RESP 16; TEMP 98
[2018-05-01] MEDS ORDERED: LIDOCAINE 1% 20 ML VIAL (10MG/ML) FOR IV START INTRADERMA ONE (09:56)
[2018-05-01] MEDS ORDERED: LIDOCAINE 1% INJ 10MG/ML (20 ML MDV) ONE (10:14)
[2018-05-01] MEDS ORDERED: PROPOFOL 10 MG/ML 20 ML VIAL IV ONE (10:14)
--- NOTE | 2018-05-01 10:44 | P.PCN ---
Date of Procedure: 05/01/18 Procedure(s) Performed: Brief history: Patient is a pleasant 63-year-old white female scheduled for an elective upper endoscopy as well as colonoscopy as a part of evaluation of epigastric pain, nausea vomiting for the last few weeks duration. She developed severe left lower quadrant abdominal pain and subsequently diagnosed with possible acute sigmoid diverticulitis and treated with antibiotics about 8 weeks ago. Since then she is been having GI upset with abdominal pain, nausea vomiting. Intermittent diarrhea with mucus in the stool. She also has long-standing history of Iritis and Has Been Maintained on Nasal, Which Remains in Clinical Remission. His Last Surveillance Colonoscopy Was 2 Years Ago and was normal Procedure performed: Esophagogastroduodenoscopy with biopsy Colonoscopy with biopsy Preoperative diagnosis: Abdominal pain, denies nausea vomiting of 8 weeks duration Recent episode of sigmoid diverticulitis Long-standing history of ulcerative colitis Anesthesia: MAC Procedure: After informed consent was obtained from the patient was brought into the endoscopy unit and IV sedation was administered by anesthesia under continuous monitoring. Initially upper endoscopy was done. The Olympus GF 160 video endoscope was inserted inserted into the mouth and esophagus intubated without any difficulty and was gradually advanced into the stomach and duodenum and carefully examined. The bulb and second part of the duodenum appeared normal. The scope was then withdrawn into the stomach adequately insufflated with air and upon careful examination the antrum and body, cardia and fundus appeared normal. The scope was then withdrawn into the esophagus. The GE junction was located at 40 cm to the incisors. It appeared regular with some erythema but no erosions or ulcerations. Biopsies were done from the distal esophagus. Rest of the esophagus appeared normal. Patient tolerated the procedure well. At this time the patient continued to remain sedation. Initial digital rectal examination was normal. Olympus CF 160 video colonoscope was then inserted into the rectum and gradually advanced and because of mucosal hypertrophy and mucosal thickening in this area , Iwas not able to advance the scope further. The scope was removed and a pediatric colonoscope was then inserted in the rectum and with gentle manipulation I was able to advance to the cecum without any difficulty. Careful examination was performed as the scope was gradually being withdrawn. The prep was fair.. The cecum, ascending colon, transverse colon, descending colon, appeared normal. There was short segment in the sigmoid colon extending from 20-35 cm from the anal verge with mucosal hypertrophy and thickening of the mucosal folds with some erythema identified consistent with focal segmental colitis probably elated to recent episode of sigmoid diverticulitis. No evidence of active ulcerative colitis seen. Multiple biopsies were done from this area. The distal sigmoid colon and rectum appeared normal. Scattered small diverticulosis seen. Retroflexion was performed in the rectum and no lesions were noted. Patient tolerated the procedure well. Impression: 1. Upper endoscopy revealed mild reflux esophagitis but no evidence of gastritis or peptic ulcer disease 2. Colonoscopy revealed focal segmental colitis involving the distal sigmoid colon from 20-35 cm from the anal verge with severe mucosal hypertrophy, mucosal thickening and patchy areas of erythema consistent with diverticular associated colitis. No evidence of active ulcerative colitis. Recommendations: Findings of this examination were discussed with the patient as well as her family. She was advised to follow with the biopsy results. She will continue with her current medications and she'll be seen in the office in 2 weeks.
[2018-05-01 11:02] VITALS: BP 140/70; PULSE 76
== END 2018-05-01 11:52 | disposition home or self-care (01) ==
LOC: ORWHC2ENDO 08:39
PROVIDERS: ATTEND Internal Medicine Gastroenterology
DX: K29.50 Unspecified chronic gastritis without bleeding (principal); K31.9 Disease of stomach and duodenum, unspecified; K21.0 Gastro-esophageal reflux disease with esophagitis; K57.30 Diverticulosis of large intestine without perforation or abscess without bleeding; K51.90 Ulcerative colitis, unspecified, without complications; Z87.19 Personal history of other diseases of the digestive system; I10 Essential (primary) hypertension; E78.5 Hyperlipidemia, unspecified; J44.9 Chronic obstructive pulmonary disease, unspecified; Z79.899 Other long term (current) drug therapy; Z87.891 Personal history of nicotine dependence; Z87.442 Personal history of urinary calculi
CPT/HCPCS: 88305; 45380; 43239; J2001; J2704

== ENCOUNTER → 2018-05-28 | Outpatient (CLI) | payer BC ==
--- NOTE | 2018-05-29 14:53 | MM ---
Reason for exam: screening (asymptomatic). Last mammogram was performed 1 year and 7 months ago. Physical Findings: A clinical breast exam by your physician is recommended on an annual basis and results should be correlated with mammographic findings. MG 3D Screening Mammo W/Cad Bilateral CC and MLO view(s) were taken. Prior study comparison: November 01, 2016, bilateral MG screening mammo w CAD. July 09, 2013, mammogram, performed at [facility]. The breast tissue is heterogeneously dense. This may lower the sensitivity of mammography. There is no discrete abnormality. No significant changes when compared with prior studies. ASSESSMENT: Negative, BI-RAD 1 RECOMMENDATION: Routine screening mammogram of both breasts in 1 year.
== END ==
LOC: RADMAMWWP 07:09
PROVIDERS: ATTEND Family Medicine
DX: Z12.31 Encounter for screening mammogram for malignant neoplasm of breast (principal)
CPT/HCPCS: 77063; 77067

== ENCOUNTER → 2018-10-29 | Outpatient (CLI) | payer BC ==
[2018-10-29 16:47] LABS: Albumin 4.4 g/dL (3.80-4.90); Albumin/Globulin Ratio 2.93 (1.60-3.17); Anion Gap 6.8 mmol/L (4.00-12.00); Calcium 9.1 mg/dL (8.7-10.3); Carbon Dioxide 28.2 mmol/L (21.6-31.8); Globulin 1.5 g/dL (1.6-3.3); LDL Cholesterol,Calculated 119.2 mg/dL (0.0-131.0); Potassium 4.6 mmol/L (3.5-5.5); Total Bilirubin 0.5 mg/dL (0.2-1.2); Total Protein 5.9 g/dL (6.2-8.2); VLDL Calculation 22.8 mg/dL (5.00-40.00)
== END | disposition home or self-care (01) ==
LOC: LABWHC1 08:07
PROVIDERS: ATTEND Nurse Practitioner Family
DX: E78.2 Mixed hyperlipidemia (principal); I10 Essential (primary) hypertension; Q61.5 Medullary cystic kidney
CPT/HCPCS: 36415; 80053; 80061

== ENCOUNTER → 2019-02-17 | Outpatient (CLI) | payer MEDICARE, BC ==
--- NOTE | 2019-02-17 13:31 | XR ---
KUB HISTORY: Calculus of kidney, bilateral kidney stones KUB submitted. Correlation to prior CT 02/10/2018 Calcification at the lower pole left kidney measures possibly 7 mm in greatest dimension. Small punct ate calcifications are scattered within the left kidney and right kidney consistent with medullary sp onge kidney. Suspect there is a dominant calcification in the upper pole the right kidney measuring a pproximately 5 mm. Mild degenerative disc changes are present in the visualized spine. No pneumoperit oneum or bowel obstruction. IMPRESSION: Bilateral nephrolithiasis, medullary sponge kidney.
== END ==
LOC: RADXRMAIN 11:20
PROVIDERS: ATTEND Family Medicine
DX: N20.0 Calculus of kidney (principal); Q61.5 Medullary cystic kidney
CPT/HCPCS: 74018

== ENCOUNTER → 2019-03-10 | Outpatient (CLI) | payer MEDICARE, BC | END | disposition home or self-care (01) | LOC: LABPAT 07:25 | PROVIDERS: ATTEND Urology | DX: Z01.812 Encounter for preprocedural laboratory examination (principal); N39.0 Urinary tract infection, site not specified; N20.0 Calculus of kidney | CPT/HCPCS: 36415; 87086 ==

== ENCOUNTER 2019-03-17 08:05 | Day surgery (SDC) | payer MEDICARE, BC ==
[2019-03-12 10:01] VITALS: BMI 29.4
--- NOTE | 2019-03-14 09:51 | P.GSHP ---
History of Present Illness H&P Date: 03/14/19 64 yo femalew with a long history of kidney stone disease SHe presented with left sided abdominal pain and a kub that shows 3 left renal stones WE discussed treatment options. SHe comes for eswl left. - Constitutional Constitutional: Denies chills, Denies fever - EENT Eyes: denies blurred vision, denies pain Ears, nose, mouth and throat: Denies headache, Denies sore throat - Cardiovascular Cardiovascular: Denies chest pain, Denies shortness of breath - Respiratory Respiratory: Denies cough, Denies 7 - Gastrointestinal Gastrointestinal: Denies abdominal pain, Denies diarrhea, Denies nausea, Denies vomiting - Genitourinary (Female) Genitourinary: Denies dysuria, Denies hematuria - Genitourinary (Male) Genitourinary: Denies dysuria, Denies hematuria - Musculoskeletal Musculoskeletal: Denies myalgias - Integumentary Integumentary: Denies pruritus, Denies rash - Neurological Neurological: Denies numbness, Denies weakness - Psychiatric Psychiatric: Denies anxiety, Denies depression - Endocrine Endocrine: Denies fatigue, Denies weight change Past Medical History Past Medical History: COPD, Eye Disorder, GERD/Reflux, Hyperlipidemia, Hypertension, Osteoarthritis (OA), Renal Disease Additional Past Medical History / Comment(s): Ulcerative colitis, diverticulitis, benign colon polyps, nephrolithiasis, starting of bilateral lindsay racts, L leg varicosity, seasonal allergies. History of Any Multi-Drug Resistant Organisms: None Reported Past Surgical History: Adenoidectomy, Hysterectomy, Tonsillectomy Additional Past Surgical History / Comment(s): lithotripsies,colonoscopy with polypectomy Past Anesthesia/Blood Transfusion Reactions: No Reported Reaction Smoking Status: Former smoker - Past Family History Mother Family Medical History: Cancer Additional Family Medical History / Comment(s): Pt believes her mother had throat cancer. Father Family Medical History: Myocardial Infarction ([place]) Additional Family Medical History / Comment(s): Father at the age of 83 yrs from a [place] Medications and Allergies Home Medications Medication Instructions Recorded Confirmed Type Ramipril [Altace] 10 mg PO BID 05/13/14 03/12/19 History Atorvastatin [Lipitor] 20 mg PO HS 05/11/16 03/12/19 History Cetirizine HCl [Zyrtec] 10 mg PO DAILY 05/11/16 03/12/19 History Dicyclomine [Bentyl] 20 mg PO TID 05/11/16 03/12/19 History Acetaminophen [Tylenol] 650 mg PO Q4H PRN 03/18/18 03/12/19 History Propylene Glycol/Peg 400/Pf 1 dropper BOTH EYES DAILY PRN 03/18/18 03/12/19 History [Systane 0.3-0.4% Eye Drop] Metoprolol Tartrate [Lopressor] 25 mg PO BID #60 tab 03/19/18 03/12/19 Rx L.acidoph,Paracasei, B.lactis 1 each PO DAILY 04/29/18 03/12/19 History [Probiotic] Balsalazide Disodium 2 tab PO DAILY 03/12/19 03/12/19 History HYDROcodone/APAP 5-325MG [[place] 1 tab PO Q4HR PRN 03/12/19 03/12/19 History 5-325] Montelukast [Singulair] 10 mg PO DAILY 03/12/19 03/12/19 History Omeprazole [PriLOSEC] 40 mg PO AC-BRKFST PRN 03/12/19 03/12/19 History Ondansetron HCl [Zofran] 4 mg PO DAILY PRN 03/12/19 03/12/19 History Allergies Allergy/AdvReac Type Severity Reaction Status Date / Time No Known Allergies Allergy Verified 03/12/19 09:50 Surgical - Exam - General well developed, well nourished, no distress - ENT no hearing loss - Respiratory normal expansion, normal respiratory effort - Cardiovascular Rhythm: regular - Abdomen Abdomen: soft, non tender - Neurologic normal coordination, normal sensation - Musculoskeletal normal gait, normal posture - Psychiatric oriented to time, oriented to person, oriented to place, speech is normal, memory intact Results - Imaging Abdominal x-ray: report reviewed, image reviewed Assessment and Plan Assessment: Impression: Left renal stones Plan: eswl left
[~2019-03-17 08:05] MED LIST changes: +DEXAMETHASONE SOD PHOSPHATE 10 MG/ML 1 ML VIAL IV ONE; -HYDROmorphone 1 MG/ML 1 ML SYRINGE IVP PRN; +LIDOCAINE 1% 20 ML VIAL (10MG/ML) FOR IV START INTRADERMA PRN; +ONDANSETRON 4 MG/2 ML VIAL IVP ONE; +Pre Op ABX Message 1 EACH MISC MISCELLANE ONE
--- NOTE | 2019-03-17 08:39 | XR ---
EXAMINATION TYPE: XR KUB DATE OF EXAM: 03/17/2019 8:12 AM CLINICAL HISTORY: Presurgical study, left-sided kidney stones. TECHNIQUE: Two supine KUB images of the abdomen are obtained. COMPARISON: Abdominal x-ray October 18, 2018. CT abdomen and pelvis February 20, 2018 FINDINGS: Redemonstration of multiple left-sided renal calculi, estimated 7-10 in number largest 8 mm calculus lower pole of the left kidney again seen projecting at level of superior L3 vertebra. Redem onstration of right-sided renal calculi with stable 5 mm calculus just below right 12th rib lateral a spect midpole level right kidney. Smaller right renal calculi less well-seen on plain films. Overall nonobstructive bowel gas pattern. Osseous structures are intact. Lung bases are clear. IMPRESSION: Bilateral nephrolithiasis. No significant change from recent x-ray.
[2019-03-17] MEDS ORDERED: fentaNYL (PF) 50 MCG/ML 2 ML AMP ONE (10:10)
[2019-03-17] MEDS ORDERED: MIDAZOLAM 2 MG/2 ML VIAL ONE (10:10)
[2019-03-17] MEDS ORDERED: PROPOFOL 10 MG/ML 20 ML VIAL IV ONE (10:10)
[2019-03-17] MEDS ORDERED: SODIUM CHLORIDE 0.9% 500 ML 500 ML IV ONE (10:52)
--- NOTE | 2019-03-17 11:00 | P.OP ---
Date of Procedure: 03/17/19 Preoperative Diagnosis: Left renal calculi Postoperative Diagnosis: Same Procedure(s) Performed: Left extracorporeal shockwave lithotripsy (ESWL) Anesthesia: SHAHEED Surgeon: Tejinder Young Estimated Blood Loss (ml): 0 IV fluids (ml): 1,100 Pathology: none sent Condition: stable Disposition: PACU Indications for Procedure: The patient is a 64-year-old white female with multiple renal calculi. The largest measures 8 mm and is located within a left lower pole calyx. She comes for ESWL. Operative Findings: Fragmentation of the calculus is noted to occur. Description of Procedure: The patient was taken to the operating room and placed on the [email or web address] Delta II lithotripter in the supine position. The calculi were seen on biplanar fluoroscopy. Once the patient was properly positioned to treat the left lower pole calculus, lithotripsy was performed. The energy level was gradually increased per protocol, to an energy level of 5. After 200 shocks were administered, a 2 minute pause was instituted per protocol. A total of 2500 shocks were given at a rate of 80 shocks per minute. Fluoroscopy was utilized at a minimum to ensure proper positioning and determine the treatment status. The calculus changed in appearance, consistent with fragmentation. The patient tolerated the procedure well was taken to the recovery room in stable condition. Instructions were given to strain the urine, and the patient will follow-up within one week.
[2019-03-17 11:17] VITALS: TEMP 96.9
[2019-03-17 12:05] VITALS: RESP 18
[2019-03-17 12:31] VITALS: BP 115/74; PULSE 60
== END 2019-03-17 13:05 | disposition home or self-care (01) ==
LOC: ORWHC2ENDO 08:05
PROVIDERS: ATTEND Urology
DX: N20.0 Calculus of kidney (principal); Q61.5 Medullary cystic kidney; J44.9 Chronic obstructive pulmonary disease, unspecified; K21.9 Gastro-esophageal reflux disease without esophagitis; E78.5 Hyperlipidemia, unspecified; I10 Essential (primary) hypertension; M19.90 Unspecified osteoarthritis, unspecified site; J30.2 Other seasonal allergic rhinitis; K51.90 Ulcerative colitis, unspecified, without complications; H26.9 Unspecified cataract; K57.90 Diverticulosis of intestine, part unspecified, without perforation or abscess without bleeding; I83.92 Asymptomatic varicose veins of left lower extremity; Z79.899 Other long term (current) drug therapy; Z88.2 Allergy status to sulfonamides; Z87.442 Personal history of urinary calculi; Z90.710 Acquired absence of both cervix and uterus; Z90.89 Acquired absence of other organs; Z98.890 Other specified postprocedural states; Z87.891 Personal history of nicotine dependence; Z86.010 Personal history of colon polyps; Z80.8 Family history of malignant neoplasm of other organs or systems; Z82.49 Family history of ischemic heart disease and other diseases of the circulatory system
CPT/HCPCS: 74018; 50590; J2250; J1100; J2405; J3010; J2704

== ENCOUNTER → 2019-03-24 | Outpatient (CLI) | payer MEDICARE, BC ==
--- NOTE | 2019-03-24 12:59 | XR ---
KUB HISTORY: Status post lithotripsy left kidney, kidney stones, postop Frontal KUB correlated prior KUB 03/17/2019 The previous identified calcification superimposed over the lower pole left kidney shows a fragmented appearance. Fragments also present overlying the upper to midpole of left kidney. Largest calcificat ion measures only approximately 3 mm. There calcification superimposed over the right kidney addition ally, upper pole shows a calcification measuring approximate 5 mm, lower pole approximately 4 mm. IMPRESSION: Post lithotripsy findings, bilateral nephrolithiasis suspected.
== END | disposition home or self-care (01) ==
LOC: RADXRMAIN 08:24
PROVIDERS: ATTEND Urology
DX: N20.0 Calculus of kidney (principal)
CPT/HCPCS: 74018

== ENCOUNTER → 2019-05-05 | Outpatient (CLI) | payer MEDICARE, BC ==
[2019-05-05 09:26] LABS: Basophils % (A) 0 %; Eosinophils # (A) 0.1 k/uL (0-0.7); Eosinophils % (A) 1 %; HCT 42.4 % (34.0-46.0); HGB 13.9 gm/dL (11.4-16.0); Lymphocytes # (A) 2.4 k/uL (1.0-4.8); Lymphocytes % (A) 33 %; MCH 31.5 pg (25.0-35.0); MCHC 32.9 g/dL (31.0-37.0); MCV 95.8 fL (80.0-100.0); Mean Platelet Volume 6.8; Monocytes # (A) 0.4 k/uL (0-1.0); Monocytes % (A) 6 %; Neutrophils % (A) 56 %; Platelet Count 279 k/uL (150-450); RBC 4.42 m/uL (3.80-5.40); RDW 12.1 % (11.5-15.5); WBC 7.2 k/uL (3.8-10.6)
[2019-05-05 18:05] LABS: African American GFR (CKD) 68.5 (60.0-200.0); Albumin 4.6 g/dL (3.80-4.90); Albumin/Globulin Ratio 2.71 (1.60-3.17); Anion Gap 7.7 mmol/L (4.00-12.00); Calcium 9.5 mg/dL (8.7-10.3); Carbon Dioxide 31.3 mmol/L (21.6-31.8); Chol/HDL Ratio 2.99; Globulin 1.7 g/dL (1.6-3.3); Potassium 4.6 mmol/L (3.5-5.5); Total Bilirubin 0.6 mg/dL (0.2-1.2); Total Protein 6.3 g/dL (6.2-8.2)
== END | disposition home or self-care (01) ==
LOC: LABWHC1 08:24
PROVIDERS: ATTEND Family Medicine
DX: Z00.00 Encounter for general adult medical examination without abnormal findings (principal); E78.2 Mixed hyperlipidemia; E55.9 Vitamin D deficiency, unspecified
CPT/HCPCS: 36415; 80053; 80061; 82306; 85025

== ENCOUNTER → 2019-07-18 | Outpatient (CLI) | payer MEDICARE, BC ==
--- NOTE | 2019-07-21 13:59 | MM ---
Reason for exam: screening (asymptomatic). Last mammogram was performed 1 year and 2 months ago. Physical Findings: A clinical breast exam by your physician is recommended on an annual basis and results should be correlated with mammographic findings. MG 3D Screening Mammo W/Cad Bilateral CC and MLO view(s) were taken. Prior study comparison: May 28, 2018, bilateral MG 3d screening mammo w/cad. November 01, 2016, bilateral MG screening mammo w CAD. The breast tissue is heterogeneously dense. This may lower the sensitivity of mammography. There are benign appearing round linear calcifications bilaterally. There is chronic nodularity in the right axilla. There is no discrete abnormality. ASSESSMENT: Benign, BI-RAD 2 RECOMMENDATION: Routine screening mammogram of both breasts in 1 year.
== END | disposition home or self-care (01) ==
LOC: RADMAMWWP 10:51
PROVIDERS: ATTEND Family Medicine
DX: Z12.31 Encounter for screening mammogram for malignant neoplasm of breast (principal)
CPT/HCPCS: 77063; 77067

== ENCOUNTER → 2019-09-23 | Outpatient (CLI) | payer MEDICARE, BC ==
--- NOTE | 2019-09-23 08:47 | XR ---
EXAMINATION TYPE: XR abdomen 1V DATE OF EXAM: 09/23/2019 8:42 AM CLINICAL HISTORY: Bilateral kidney stones. History of left-sided lithotripsy 6 months ago. TECHNIQUE: Single supine KUB image of the abdomen is obtained. COMPARISON: Abdominal x-ray March 24, 2019. CT abdomen and pelvis February 20, 2018. FINDINGS: Mottled overlying fecal material makes evaluation suboptimal. There are additional punctate densities likely present in bowel loops mimicking tiny calculi. There are suspected at least 6-7 rig ht-sided renal calculi measuring up to 6 mm in size of L1-L2 disc space level. There are at least 6 s maller left-sided renal calculi all measuring under 4 mm in size. Overall nonobstructive bowel gas pattern. Visualized osseous structures are intact. IMPRESSION: As above.
== END | disposition home or self-care (01) ==
LOC: RADXRMAIN 08:30
PROVIDERS: ATTEND Urology
DX: N20.0 Calculus of kidney (principal)
CPT/HCPCS: 74018

== ENCOUNTER → 2019-10-29 | Outpatient (CLI) | payer MEDICARE, BC ==
[2019-10-29 09:46] LABS: Basophils % (A) 1 %; Eosinophils # (A) 0.3 k/uL (0-0.7); Eosinophils % (A) 6 %; HCT 38.5 % (34.0-46.0); HGB 12.9 gm/dL (11.4-16.0); Lymphocytes # (A) 1.6 k/uL (1.0-4.8); Lymphocytes % (A) 34 %; MCH 32.1 pg (25.0-35.0); MCHC 33.4 g/dL (31.0-37.0); MCV 95.9 fL (80.0-100.0); Mean Platelet Volume 8.7; Monocytes # (A) 0.3 k/uL (0-1.0); Monocytes % (A) 7 %; Neutrophils # (A) 2.3 k/uL (1.3-7.7); Neutrophils % (A) 50 %; Platelet Count 223 k/uL (150-450); RBC 4.02 m/uL (3.80-5.40); RDW 12.5 % (11.5-15.5); WBC 4.6 k/uL (3.8-10.6)
[2019-10-29 15:53] LABS: African American GFR (CKD) 77.8 (60.0-200.0); Albumin 4.2 g/dL (3.80-4.90); Albumin/Globulin Ratio 2.47 (1.60-3.17); Anion Gap 9.1 mmol/L (4.00-12.00); BUN/Creat Ratio 24.44 Ratio (12.00-20.00); Calcium 9.2 mg/dL (8.7-10.3); Carbon Dioxide 29.9 mmol/L (21.6-31.8); Chol/HDL Ratio 2.81; Globulin 1.7 g/dL (1.6-3.3); Non-African American GFR(CKD) 67.1 (60.0-200.0); Potassium 4.4 mmol/L (3.5-5.5); Total Bilirubin 0.5 mg/dL (0.3-1.2); Total Protein 5.9 g/dL (6.2-8.2)
== END | disposition home or self-care (01) ==
LOC: LABWHC1 09:08
PROVIDERS: ATTEND Family Medicine
DX: I10 Essential (primary) hypertension (principal); E78.00 Pure hypercholesterolemia, unspecified
CPT/HCPCS: 36415; 80053; 80061; 85025

== ENCOUNTER 2019-12-17 17:40 | Emergency (ER) | payer MEDICARE, BC ==
[2019-12-17] MEDS ORDERED: MORPHINE SULFATE 4 MG/ML SYRINGE IV STA (18:24)
[2019-12-17] MEDS ORDERED: SODIUM CHLORIDE 0.9% 1,000 ML IV STA (18:24)
--- NOTE | 2019-12-17 18:44 | ED ---
General Adult HPI - General Source: patient, RN notes reviewed, old records reviewed Mode of arrival: ambulatory Limitations: no limitations <Bladimir Ventura - Last Filed: 12/17/19 18:42> <Bladimir Singh - Last Filed: 12/17/19 21:23> - General Chief complaint: Abdominal Pain Stated complaint: Diverticulitis Time Seen by Provider: 12/17/19 18:03 - History of Present Illness Initial comments: 64-year-old female with history of diverticulitis presenting with 4 days of abdominal pain predominantly left lower quadrant. Patient has had subjective fever and chills. She's had normal bowel movements. No vomiting. She states her pain is similar to previous episodes of diverticulitis. She states she has had a decreased appetite. No dysuria or hematuria. (Bladimir Ventura) - Related Data Home Medications Medication Instructions Recorded Confirmed Ramipril [Altace] 10 mg PO BID 05/13/14 03/17/19 Atorvastatin [Lipitor] 20 mg PO HS 05/11/16 03/17/19 Cetirizine HCl [Zyrtec] 10 mg PO DAILY 05/11/16 03/17/19 Dicyclomine [Bentyl] 20 mg PO TID 05/11/16 03/17/19 Acetaminophen [Tylenol] 650 mg PO Q4H PRN 03/18/18 03/17/19 Propylene Glycol/Peg 400/Pf 1 dropper BOTH EYES DAILY PRN 03/18/18 03/17/19 [Systane 0.3-0.4% Eye Drop] L.acidoph,Paracasei, B.lactis 1 each PO DAILY 04/29/18 03/17/19 [Probiotic] Balsalazide Disodium 2 tab PO DAILY 03/12/19 03/17/19 HYDROcodone/APAP 5-325MG [[place] 1 tab PO Q4HR PRN 03/12/19 03/17/19 5-325] Montelukast [Singulair] 10 mg PO DAILY 03/12/19 03/17/19 Omeprazole [PriLOSEC] 40 mg PO AC-BRKFST PRN 03/12/19 03/17/19 Ondansetron HCl [Zofran] 4 mg PO DAILY PRN 09/11/19 09/16/19 Previous Rx's Medication Instructions Recorded Metoprolol Tartrate [Lopressor] 25 mg PO BID #60 tab 03/19/18 Hydrocodone/Acetaminophen [[place] 1 - 2 each PO Q4HR PRN #10 tab 03/17/19 5-325] Amoxicillin/Potassium Clav 1 tab PO Q12HR 3 Days #20 tab 12/17/19 [Augmentin 875-125 Tablet] Hydrocodone/Acetaminophen [[place] 1 each PO Q6HR PRN #20 tab 12/17/19 5-325] metroNIDAZOLE [Flagyl] 500 mg PO Q8HR #30 tab 12/17/19 Allergies Allergy/AdvReac Type Severity Reaction Status Date / Time sulfamethoxazole Allergy Rash/Hives Verified 12/17/19 18:00 [From Bactrim] trimethoprim [From Bactrim] Allergy Rash/Hives Verified 12/17/19 18:00 Review of Systems ROS Other: All systems not noted in ROS Statement are negative. <Bladimir Ventura - Last Filed: 12/17/19 18:42> ROS Other: All systems not noted in ROS Statement are negative. <Bladimir Singh - Last Filed: 12/17/19 21:23> ROS Statement: Those systems with pertinent positive or pertinent negative responses have been documented in the HPI. Past Medical History Past Medical History: COPD, Eye Disorder, GERD/Reflux, Hyperlipidemia, Hypertension, Osteoarthritis (OA), Renal Disease Additional Past Medical History / Comment(s): Ulcerative colitis, diverticulitis, benign colon polyps, nephrolithiasis, starting of bilateral cataracts, L leg varicosity, seasonal allergies. History of Any Multi-Drug Resistant Organisms: None Reported Past Surgical History: Adenoidectomy, Hysterectomy, Tonsillectomy Additional Past Surgical History / Comment(s): lithotripsies,colonoscopy with polypectomy Past Anesthesia/Blood Transfusion Reactions: No Reported Reaction Past Psychological History: No Psychological Hx Reported Smoking Status: Former smoker Past Alcohol Use History: None Reported Past Drug Use History: None Reported - Past Family History Mother Family Medical History: Cancer Additional Family Medical History / Comment(s): Pt believes her mother had throat cancer. Father Family Medical History: Myocardial Infarction ([place]) Additional Family Medical History / Comment(s): Father at the age of 83 yrs from a [place] <Bladimir Ventura - Last Filed: 12/17/19 18:42> General Exam Limitations: no limitations General appearance: alert, in no apparent distress Head exam: Present: atraumatic, normocephalic Eye exam: Present: normal appearance, PERRL, EOMI ENT exam: Present: mucous membranes dry Neck exam: Present: normal inspection. Absent: tenderness, meningismus Respiratory exam: Present: normal lung sounds bilaterally. Absent: respiratory distress Cardiovascular Exam: Present: regular rate, tachycardia GI/Abdominal exam: Present: soft, distended, tenderness. Absent: guarding, rebound Extremities exam: Present: normal inspection, normal capillary refill. Absent: pedal edema Neurological exam: Present: alert, oriented X3, CN II-XII intact. Absent: motor sensory deficit Psychiatric exam: Present: normal affect, normal mood Skin exam: Present: warm, dry, intact. Absent: cyanosis, diaphoretic <Bladimir Ventura - Last Filed: 12/17/19 18:42> Course Vital Signs 12/17/19 18:00 Temperature 99.5 F Pulse Rate 118 H Respiratory 20 Rate Blood Pressure 138/87 O2 Sat by Pulse 97 Oximetry Medical Decision Making - Lab Data Result diagrams: 12/17/19 19:15 12/17/19 19:15 - Radiology Data Radiology results: report reviewed (I did review the imaging and report evidence of uncomplicated diverticulitis), image reviewed <Bladimir Singh - Last Filed: 12/17/19 21:23> - Medical Decision Making Patient was endorsed me at our shift change by Dr. Ventura. Patient was pending UA and CT results. UA is unremarkable CT did show evidence of uncomplicated diverticulitis. Patient also was noted on the CAT scan has some thickening of the wall which she states she's had before. She is scheduled colonoscopy in the near future. Patient be discharged on appropriate medication she would like to go home with oral antibiotics she states she normally is on 2 medications including Flagyl. Placed on a short course of [place]. He is follow- up with her doctor return when necessary. (Bladimir Singh) - Lab Data Lab Results 12/17/19 12/17/19 12/17/19 Range/Units 19:15 19:15 19:15 WBC 10.3 (3.8-10.6) k/uL RBC 4.65 (3.80-5.40) m/uL Hgb 14.8 (11.4-16.0) gm/dL Hct 44.6 (34.0-46.0) % MCV 95.7 (80.0-100.0) fL MCH 31.9 (25.0-35.0) pg MCHC 33.3 (31.0-37.0) g/dL RDW 12.3 (11.5-15.5) % Plt Count 279 (150-450) k/uL Neutrophils % 75 % Lymphocytes % 15 % Monocytes % 7 % Eosinophils % 1 % Basophils % 0 % Neutrophils # 7.7 (1.3-7.7) k/uL Lymphocytes # 1.5 (1.0-4.8) k/uL Monocytes # 0.7 (0-1.0) k/uL Eosinophils # 0.1 (0-0.7) k/uL Basophils # 0.0 (0-0.2) k/uL PT 9.4 (9.0-12.0) sec INR 0.9 (<1.2) APTT 22.7 (22.0-30.0) sec Sodium 139 (137-145) mmol/L Potassium 4.0 (3.5-5.1) mmol/L Chloride 103 (98-107) mmol/L Carbon Dioxide 25 (22-30) mmol/L Anion Gap 11 mmol/L BUN 20 H (7-17) mg/dL Creatinine 0.81 (0.52-1.04) mg/dL Est GFR (CKD-EPI)AfAm 89 (>60 ml/min/1.73 sqM) Est GFR (CKD-EPI)NonAf 77 (>60 ml/min/1.73 sqM) Glucose 104 H (74-99) mg/dL Plasma Lactic Acid Peter (0.7-2.0) mmol/L Calcium 9.1 (8.4-10.2) mg/dL Total Bilirubin 0.6 (0.2-1.3) mg/dL AST 23 (14-36) U/L ALT 13 (4-34) U/L Alkaline Phosphatase 84 (38-126) U/L Total Protein 7.0 (6.3-8.2) g/dL Albumin 4.4 (3.5-5.0) g/dL Amylase <30 L (30-110) U/L Lipase 64 (23-300) U/L Urine Color Urine Appearance (Clear) Urine pH (5.0-8.0) Ur Specific [place] (1.001-1.035) Urine Protein (Negative) Urine Glucose (UA) (Negative) Urine Ketones (Negative) Urine Blood (Negative) Urine Nitrite (Negative) Urine Bilirubin (Negative) Urine Urobilinogen (<2.0) mg/dL Ur Leukocyte Esterase (Negative) 12/17/19 12/17/19 Range/Units 19:15 19:15 WBC (3.8-10.6) k/uL RBC (3.80-5.40) m/uL Hgb (11.4-16.0) gm/dL Hct (34.0-46.0) % MCV (80.0-100.0) fL MCH (25.0-35.0) pg MCHC (31.0-37.0) g/dL RDW (11.5-15.5) % Plt Count (150-450) k/uL Neutrophils % % Lymphocytes % % Monocytes % % Eosinophils % % Basophils % % Neutrophils # (1.3-7.7) k/uL Lymphocytes # (1.0-4.8) k/uL Monocytes # (0-1.0) k/uL Eosinophils # (0-0.7) k/uL Basophils # (0-0.2) k/uL PT (9.0-12.0) sec INR (<1.2) APTT (22.0-30.0) sec Sodium (137-145) mmol/L Potassium (3.5-5.1) mmol/L Chloride (98-107) mmol/L Carbon Dioxide (22-30) mmol/L Anion Gap mmol/L BUN (7-17) mg/dL Creatinine (0.52-1.04) mg/dL Est GFR (CKD-EPI)AfAm (>60 ml/min/1.73 sqM) Est GFR (CKD-EPI)NonAf (>60 ml/min/1.73 sqM) Glucose (74-99) mg/dL Plasma Lactic Acid Peter 1.3 (0.7-2.0) mmol/L Calcium (8.4-10.2) mg/dL Total Bilirubin (0.2-1.3) mg/dL AST (14-36) U/L ALT (4-34) U/L Alkaline Phosphatase (38-126) U/L Total Protein (6.3-8.2) g/dL Albumin (3.5-5.0) g/dL Amylase (30-110) U/L Lipase (23-300) U/L Urine Color Light Yellow Urine Appearance Clear (Clear) Urine pH 6.0 (5.0-8.0) Ur Specific [place] 1.007 (1.001-1.035) Urine Protein Negative (Negative) Urine Glucose (UA) Negative (Negative) Urine Ketones 1+ H (Negative) Urine Blood Negative (Negative) Urine Nitrite Negative (Negative) Urine Bilirubin Negative (Negative) Urine Urobilinogen <2.0 (<2.0) mg/dL Ur Leukocyte Esterase Negative (Negative) Disposition <Bladimir Ventura - Last Filed: 12/17/19 18:42> Is patient prescribed a controlled substance at d/c from ED?: Yes When asked, does pt state using other controlled substances?: No If prescribed controlled substance>3 days was MAPS reviewed?: Prescribed <3 Days If opioid is for acute pain is fill amount 7 days or less?: Yes If Rx opioid, was Start Talking consent form obtained?: Yes <Bladimir Singh - Last Filed: 12/17/19 21:23> Clinical Impression: Diverticulitis, Abdominal pain Disposition: HOME SELF-CARE Condition: Good Instructions (If sedation given, give patient instructions): Abdominal Pain (ED), Diverticulitis (ED) Prescriptions: Amoxicillin/Potassium Clav [Augmentin 875-125 Tablet] 1 tab PO Q12HR 3 Days #20 tab metroNIDAZOLE [Flagyl] 500 mg PO Q8HR #30 tab Hydrocodone/Acetaminophen [[place] 5-325] 1 each PO Q6HR PRN #20 tab PRN Reason: Pain Referrals: Mandy Garrison MD [Primary Care Provider] - 1-2 days
[2019-12-17] MEDS ORDERED: ONDANSETRON 4 MG/2 ML VIAL IVP STA (19:07)
[2019-12-17 19:41] LABS: Basophils % (A) 0 %; Eosinophils # (A) 0.1 k/uL (0-0.7); Eosinophils % (A) 1 %; HCT 44.6 % (34.0-46.0); HGB 14.8 gm/dL (11.4-16.0); Lymphocytes # (A) 1.5 k/uL (1.0-4.8); Lymphocytes % (A) 15 %; MCH 31.9 pg (25.0-35.0); MCHC 33.3 g/dL (31.0-37.0); MCV 95.7 fL (80.0-100.0); Mean Platelet Volume 8.7; Monocytes # (A) 0.7 k/uL (0-1.0); Monocytes % (A) 7 %; Neutrophils # (A) 7.7 k/uL (1.3-7.7); Neutrophils % (A) 75 %; Platelet Count 279 k/uL (150-450); RBC 4.65 m/uL (3.80-5.40); RDW 12.3 % (11.5-15.5); WBC 10.3 k/uL (3.8-10.6)
[2019-12-17 19:42] LABS: ALT 13 U/L (4-34); AST 23 U/L (14-36); African American GFR (CKD) 89 (>60 ml/min/1.73 sqM); Albumin 4.4 g/dL (3.5-5.0); Alkaline Phosphatase 84 U/L (38-126); Amylase <30 U/L (30-110); Anion Gap 11 mmol/L; Blood Urea Nitrogen 20 mg/dL (7-17); Calcium 9.1 mg/dL (8.4-10.2); Carbon Dioxide 25 mmol/L (22-30); Chloride 103 mmol/L (98-107); Glucose 104 mg/dL (74-99); Non-African American GFR(CKD) 77 (>60 ml/min/1.73 sqM); Sodium 139 mmol/L (137-145); Total Bilirubin 0.6 mg/dL (0.2-1.3)
[2019-12-17 19:53] LABS: INR 0.9 (<1.2); Partial Thromboplastin Time 22.7 sec (22.0-30.0); Prothrombin Time 9.4 sec (9.0-12.0)
[2019-12-17 20:06] LABS: Appearance,Urine Clear (Clear); Bilirubin,Urine Negative (Negative); Blood,Urine Negative (Negative); Color,Urine Light Yellow; Glucose,Urine (UA) Negative (Negative); Ketones,Urine 1+ (Negative); Leukocyte Esterase,Urine Negative (Negative); Nitrite,Urine Negative (Negative); Protein,Urine Negative (Negative); Specific Gravity,Urine 1.007 (1.001-1.035); Urobilinogen,Urine <2.0 mg/dL (<2.0)
--- NOTE | 2019-12-17 20:24 | CT ---
EXAMINATION TYPE: CT abdomen pelvis w con DATE OF EXAM: 12/17/2019 HISTORY: LLQ pain with excess gas and bowel changes. History of ulcerative colitis. CT DLP: 1089.2mGycm Automated Exposure Control for Dose Reduction was Utilized. CONTRAST: CT scan of the abdomen and pelvis is performed with IV Contrast, patient injected with 100 mL of Isov ue 300. COMPARISON: CT abdomen and pelvis February 20, 2018 FINDINGS: LUNG BASES: No significant abnormality is appreciated. LIVER/GB: Suspect small dependent gallstone in gallbladder axial image 23. PANCREAS: No significant abnormality is seen. SPLEEN: No significant abnormality is seen. ADRENALS: No significant abnormality is seen. KIDNEYS: Symmetric cortical medullary uptake and excretion without hydronephrosis seen bilaterally. P ersistent small nonobstructing bilateral renal calculi. BOWEL: Suboptimal evaluation without enteric contrast. Stomach poorly distended and suboptimally eval uated. Low-lying cecum into right pelvis. Normal-appearing appendix medially from cecum. Some gas-magui led prominence of the proximal sigmoid colon with moderate to severe short segment wall thickening in the anterior left pelvis axial image 72. No significant surrounding fat stranding. Occasional divert icula distal to this. Mild fat stranding proximal to this. Some prominent but subcentimeter adjacent lymph nodes for reference coronal image 40. No adjacent pneumoperitoneum or well-formed fluid collect ion. UTERUS/ADNEXA: Uterus surgically absent or markedly atrophic. LYMPH NODES: No greater than 1cm abdominal or pelvic lymph nodes are appreciated. OSSEOUS STRUCTURES: No significant abnormality is seen. OTHER: No significant additional abnormality is seen. IMPRESSION: Probable recurrent uncomplicated acute colitis corresponding to area of prior concern pro ximal sigmoid colon left pelvis. I do advise colonoscopy follow-up to rule out underlying neoplasm gi brianna the severe concentric wall thickening if has not been performed in last 3 years.
[2019-12-17] MEDS ORDERED: AMOXIC-POT CLAV 875MG STARTER PACK 2 TAB BTL PO STA (21:24)
[2019-12-17] MEDS ORDERED: HYDROcodone/APAP 5-325MG 1 EACH TAB PO STA (21:24)
[2019-12-17] MEDS ORDERED: metroNIDAZOLE 500 MG TAB PO STA (21:24)
[2019-12-17 21:40] VITALS: BP 124/87; PULSE 87; RESP 16; TEMP 98
== END 2019-12-17 21:40 | disposition home or self-care (01) ==
LOC: EC 17:40
DX: K57.92 Diverticulitis of intestine, part unspecified, without perforation or abscess without bleeding (principal); I10 Essential (primary) hypertension; E78.5 Hyperlipidemia, unspecified; M19.90 Unspecified osteoarthritis, unspecified site; K51.90 Ulcerative colitis, unspecified, without complications; K21.9 Gastro-esophageal reflux disease without esophagitis; Z79.899 Other long term (current) drug therapy; Z88.2 Allergy status to sulfonamides; Z90.710 Acquired absence of both cervix and uterus; Z87.442 Personal history of urinary calculi; Z87.891 Personal history of nicotine dependence
CPT/HCPCS: 96365; 96366 ×2; 96375 ×2; 99284; 36415; 80053; 82150; 83605; 83690; 85025; 85610; 85730; 81003; 87040; 74177; J2270; J2405; J0696; Q9967; 99281

== ENCOUNTER 2020-01-28 09:46 | Day surgery (SDC) | payer MEDICARE, BC ==
[2020-01-23 16:02] VITALS: BMI 29.8
[~2020-01-28 09:46] MED LIST changes: -DEXAMETHASONE SOD PHOSPHATE 10 MG/ML 1 ML VIAL IV ONE; -LIDOCAINE 1% 20 ML VIAL (10MG/ML) FOR IV START INTRADERMA PRN; -ONDANSETRON 4 MG/2 ML VIAL IVP ONE; -Pre Op ABX Message 1 EACH MISC MISCELLANE ONE
[2020-01-28] MEDS ORDERED: LIDOCAINE 1% (10MG/ML) FOR IV START INTRADERMA ONE (10:30)
[2020-01-28 10:40] VITALS: TEMP 98
[2020-01-28] MEDS ORDERED: MIDAZOLAM 2 MG/2 ML VIAL ONE (10:47)
[2020-01-28] MEDS ORDERED: PROPOFOL 10 MG/ML 20 ML VIAL IV ONE (10:47)
--- NOTE | 2020-01-28 11:22 | P.PCN ---
Date of Procedure: 01/28/20 Procedure(s) Performed: BRIEF HISTORY: Patient is a 64-year-old pleasant white female scheduled for an elective colonoscopy as a part of surveillance of long-standing history of ulcerative colitis diagnosed in 1998. She remains in clinical remission. Last colonoscopy was 3 years ago. PROCEDURE PERFORMED: Colonoscopy with biopsy. PREOPERATIVE DIAGNOSIS: Long-standing history of ulcerative. IV sedation per Anesthesia. PROCEDURE: After informed consent was obtained, the patient, was brought into the endoscopy unit. IV sedation was administered by Anesthesia under continuous monitoring. Digital rectal examination was normal. Initially the Olympus CF-160 flexible video colonoscope was then inserted in the rectum, gradually advanced into the sigmoid colon. There was a tight stricture identified. I was not able to advance the scope. At this time the scope was removed and a pediatric colo noscopy was then inserted in the rectum and with careful and gentle manipulation I was able to advance the scope into the cecum without any difficulty. Careful examination was performed as the scope was gradually being withdrawn. Ileocecal valve and the appendiceal orifice were visualized and appeared normal. Prep was extremely poor and several areas of the colon. Mucosa of the cecum, ascending colon, transverse colon, descending colon, had large amount of stool with somewhat dilated colon and random biopsies were performed at every centimeters into well. The proximal; appeared normal. There was a tight stricture noted in the distal sigmoid colon extending from 25-30 cm from the anal verge and mucosa in this area appeared slightly erythematous with muscular hypertrophy suggestive of a diverticular related stricture. Biopsies were done from this area. The rectum appeared normal. Retroflexion was performed in the rectum and no lesions were seen. The patient tolerated the procedure well. IMPRESSION: Short sigmoid stricture extending from 20-30 cm from the anal verge with proximal colonic dilation suspicious for diverticular related stricture Rest of the colon appeared normal. Poor prep in several areas of the colon RECOMMENDATIONS: Findings of this examination were discussed with the patient as well as a family. At this time she will continue with her high-fiber diet. Because of the ongoing symptoms suggestive of colonic partial obstruction will discuss about surgical evaluation for surgical resection of the sigmoid colon.
[2020-01-28 11:44] VITALS: BP 113/75; PULSE 63; RESP 18
== END 2020-01-28 12:23 | disposition home or self-care (01) ==
LOC: ORWHC2ENDO 09:46
PROVIDERS: ATTEND Internal Medicine Gastroenterology
DX: K51.90 Ulcerative colitis, unspecified, without complications (principal); K63.89 Other specified diseases of intestine; K56.699 Other intestinal obstruction unspecified as to partial versus complete obstruction; K57.90 Diverticulosis of intestine, part unspecified, without perforation or abscess without bleeding; I10 Essential (primary) hypertension; E78.5 Hyperlipidemia, unspecified; J44.9 Chronic obstructive pulmonary disease, unspecified; M19.90 Unspecified osteoarthritis, unspecified site; K21.9 Gastro-esophageal reflux disease without esophagitis; Z88.2 Allergy status to sulfonamides; Z88.1 Allergy status to other antibiotic agents; Z88.5 Allergy status to narcotic agent; Z79.899 Other long term (current) drug therapy; Z87.891 Personal history of nicotine dependence; Z90.710 Acquired absence of both cervix and uterus; Z90.89 Acquired absence of other organs; Z98.890 Other specified postprocedural states
CPT/HCPCS: 88305; 45380; J2250; J2704

== ENCOUNTER → 2020-04-02 | Outpatient (CLI) | payer MEDICARE, BC ==
--- NOTE | 2020-04-02 09:28 | US ---
EXAMINATION TYPE: US gallbladder DATE OF EXAM: 04/02/2020 COMPARISON: NONE CLINICAL HISTORY: K80.20 Gallstones. known stones, upcoming bowel surgery, known renal stones EXAM MEASUREMENTS: Liver Length: 17.4 cm Gallbladder Wall: 0.1 cm CBD: 0.4 cm Right Kidney: 10.5 x 3.7 x 4.7cm Pancreas: wnl Liver: wnl Gallbladder: 2 small stones seen, no wall thickening Evidence for sonographic Ha's sign: no CBD: wnl Right Kidney: 0.9cm mid pole stone seen IMPRESSION: Uncomplicated cholelithiasis. Nonobstructing right-sided renal calculus.
== END | disposition home or self-care (01) ==
LOC: RADUSWWP 08:55
PROVIDERS: ATTEND Surgery Plastic and Reconstructive Surgery
DX: K80.20 Calculus of gallbladder without cholecystitis without obstruction (principal); N20.0 Calculus of kidney
CPT/HCPCS: 76705

== ENCOUNTER → 2020-04-16 | Outpatient (CLI) | payer MEDICARE, BC ==
[2020-04-16 12:52] LABS: HCT 43.3 % (34.0-46.0); HGB 14.1 gm/dL (11.4-16.0); MCH 32.2 pg (25.0-35.0); MCHC 32.7 g/dL (31.0-37.0); MCV 98.6 fL (80.0-100.0); Mean Platelet Volume 8.2; Platelet Count 310 k/uL (150-450); RBC 4.39 m/uL (3.80-5.40); RDW 12.5 % (11.5-15.5); WBC 23.4 k/uL (3.8-10.6)
[2020-04-16 13:06] LABS: Potassium 4.3 mmol/L (3.5-5.1); Total Bilirubin 0.7 mg/dL (0.2-1.3); Total Protein 6.3 g/dL (6.3-8.2)
== END | disposition home or self-care (01) ==
LOC: LABWHC1 11:51
PROVIDERS: ATTEND Surgery Plastic and Reconstructive Surgery
DX: K57.92 Diverticulitis of intestine, part unspecified, without perforation or abscess without bleeding (principal)
CPT/HCPCS: 36415; 80053; 85027

== ENCOUNTER 2020-04-18 18:21 | Emergency (ER) | payer MEDICARE, BC ==
[2020-04-18] MEDS ORDERED: ONDANSETRON 4 MG/2 ML VIAL IVP STA (19:05)
[2020-04-18] MEDS ORDERED: SODIUM CHLORIDE 0.9% 500 ML 500 ML IV STA (19:05)
[2020-04-18] MEDS ORDERED: SODIUM CHLORIDE 0.9% 1,000 ML IV STA (19:05)
[2020-04-18 19:43] LABS: Basophils % (A) 0 %; Eosinophils # (A) 0.1 k/uL (0-0.7); Eosinophils % (A) 0 %; HCT 41.3 % (34.0-46.0); HGB 13.7 gm/dL (11.4-16.0); Lymphocytes # (A) 1.8 k/uL (1.0-4.8); Lymphocytes % (A) 15 %; MCH 32.1 pg (25.0-35.0); MCHC 33.1 g/dL (31.0-37.0); Monocytes # (A) 0.8 k/uL (0-1.0); Monocytes % (A) 7 %; Neutrophils % (A) 74 %; Platelet Count 259 k/uL (150-450); RBC 4.26 m/uL (3.80-5.40); RDW 11.9 % (11.5-15.5); WBC 12.1 k/uL (3.8-10.6)
[2020-04-18 19:49] LABS: Appearance,Urine Clear (Clear); Bilirubin,Urine Negative (Negative); Blood,Urine Negative (Negative); Color,Urine Yellow; Glucose,Urine (UA) Negative (Negative); Ketones,Urine Negative (Negative); Leukocyte Esterase,Urine Trace (Negative); Nitrite,Urine Negative (Negative); PH, Urine 6.5 (5.0-8.0); Protein,Urine Negative (Negative); RBC,Urine 1 /hpf (0-5); Specific Gravity,Urine 1.014 (1.001-1.035); Squamous Epithelial Cell,Urine <1 /hpf (0-4); Urobilinogen,Urine <2.0 mg/dL (<2.0); WBC,Urine 2 /hpf (0-5)
[2020-04-18 20:01] LABS: ALT 30 U/L (4-34); AST 36 U/L (14-36); African American GFR (CKD) >90 (>60 ml/min/1.73 sqM); Albumin 3.6 g/dL (3.5-5.0); Alkaline Phosphatase 101 U/L (38-126); Anion Gap 6 mmol/L; Blood Urea Nitrogen 16 mg/dL (7-17); Calcium 8.4 mg/dL (8.4-10.2); Carbon Dioxide 26 mmol/L (22-30); Chloride 104 mmol/L (98-107); Glucose 113 mg/dL (74-99); Magnesium 2.1 mg/dL (1.6-2.3); Non-African American GFR(CKD) >90 (>60 ml/min/1.73 sqM); Sodium 136 mmol/L (137-145); Total Bilirubin 0.7 mg/dL (0.2-1.3)
[2020-04-18 20:09] VITALS: RESP 16
[2020-04-18 20:11] LABS: Potassium 3.7 mmol/L (3.5-5.1)
--- NOTE | 2020-04-18 20:25 | ED ---
Nausea/Vomiting/Diarrhea HPI - General Chief complaint: Nausea/Vomiting/Diarrhea Stated complaint: lethargic Time Seen by Provider: 04/18/20 18:36 Source: patient Mode of arrival: ambulatory Limitations: no limitations - History of Present Illness Initial comments: Patient is a 65 year old female who presents to the emergency department with old female with past medical history of ulcerative colitis, diverticulitis who presents to the emergency department with nausea and vomiting since . States she ate some sausage and shortly afterwards had some nausea with vomiting that lasted approximately 8 hours. She has been able to slowly add back some food. States that today she tolerated some apple sauce. Has had no issues with holding down any water. Reports generalized fatigue since then. Patient is unsure if it is related to her history of gallstones. She admits to generalized abdominal cramping but denies any abdominal pain. No hematemesis. Patient denies any black, tarry stools. No issues with her urination. No fevers or ch ills. No other alleviating, precipitating or modifying factors - Related Data Home Medications Medication Instructions Recorded Confirmed Atorvastatin [Lipitor] 20 mg PO HS 05/11/16 04/20/20 Cetirizine HCl [Zyrtec] 10 mg PO DAILY 05/11/16 04/20/20 Acetaminophen [Tylenol] 650 mg PO Q4H PRN 03/18/18 04/20/20 Balsalazide Disodium 1,500 mg PO BID 03/12/19 04/20/20 Montelukast [Singulair] 10 mg PO DAILY 03/12/19 04/20/20 Cholecalciferol [Vitamin D3 (25 2,000 unit PO DAILY 01/23/20 04/20/20 Mcg = 1000 Iu)] Fluticasone Nasal [place] [Flonase 1 spr EA NOSTRIL DAILY PRN 04/18/20 04/20/20 Nasal [place]] Hydrocodone/Acetaminophen [[place] 1 tab PO Q6HR PRN 04/18/20 04/20/20 5-325] Metoprolol Succinate [Toprol XL] 25 mg PO QAM 04/18/20 04/20/20 Omeprazole 20 mg PO DAILY PRN 04/18/20 04/20/20 Ramipril 20 mg PO BID 04/18/20 04/20/20 amLODIPine [Norvasc] 2.5 mg PO HS 04/18/20 04/20/20 Dicyclomine [Bentyl] 20 mg PO BID 04/20/20 04/20/20 Xanax 1 tab PO DAILY PRN 04/20/20 04/20/20 Previous Rx's Medication Instructions Recorded Ondansetron Odt [Zofran Odt] 4 mg PO Q8HR PRN #30 tab 04/18/20 Allergies Allergy/AdvReac Type Severity Reaction Status Date / Time ciprofloxacin [From Cipro] Allergy Unknown Verified 04/20/20 09:04 metronidazole [From Flagyl] Allergy Unknown Verified 04/20/20 09:04 morphine AdvReac Nausea & Verified 04/20/20 09:04 Vomiting sulfamethoxazole AdvReac Rash/Hives Verified 04/20/20 09:04 [From Bactrim] trimethoprim [From Bactrim] AdvReac Rash/Hives Verified 04/20/20 09:04 Review of Systems ROS Statement: Those systems with pertinent positive or pertinent negative responses have been documented in the HPI. ROS Other: All systems not noted in ROS Statement are negative. Past Medical History Past Medical History: COPD, Eye Disorder, GERD/Reflux, Hyperlipidemia, Hypertension, Osteoarthritis ([place]) Additional Past Medical History / Comment(s): Ulcerative colitis, diverticu litis, benign colon polyps, nephrolithiasis, starting of bilateral cataracts, L leg varicosity, seasonal allergies. History of Any Multi-Drug Resistant Organisms: None Reported Past Surgical History: Adenoidectomy, Hysterectomy, Tonsillectomy Additional Past Surgical History / Comment(s): lithotripsies,colonoscopy with polypectomy Past Anesthesia/Blood Transfusion Reactions: No Reported Reaction Past Psychological History: No Psychological Hx Reported Smoking Status: Former smoker Past Alcohol Use History: None Reported Past Drug Use History: None Reported - Past Family History Mother Family Medical History: Cancer Additional Family Medical History / Comment(s): Pt believes her mother had throat cancer. Father Family Medical History: Myocardial Infarction ([place]) Additional Family Medical History / Comment(s): Father at the age of 83 yrs from a [place] General Exam Limitations: no limitations General appearance: alert, in no apparent distress Head exam: Present: atraumatic, normocephalic, normal inspection Eye exam: Present: normal appearance, PERRL, EOMI. Absent: scleral icterus, conjunctival injection, periorbital swelling ENT exam: Present: normal exam, mucous membranes moist Neck exam: Present: normal inspection. Absent: tenderness, meningismus, lymphadenopathy Respiratory exam: Present: normal lung sounds bilaterally. Absent: respiratory distress, wheezes, rales, rhonchi, stridor Cardiovascular Exam: Present: regular rate, normal rhythm, normal heart sounds. Absent: systolic murmur, diastolic murmur, rubs, gallop, clicks GI/Abdominal exam: Present: soft, normal bowel sounds. Absent: distended, tenderness, guarding, rebound, rigid Extremities exam: Present: normal inspection, full ROM, normal capillary refill. Absent: tenderness, pedal edema, joint swelling, calf tenderness Back exam: Present: normal inspection Neurological exam: Present: alert, oriented X3, CN II-XII intact Psychiatric exam: Present: normal affect, normal mood Skin exam: Present: warm, dry, intact, normal color. Absent: rash Course Vital Signs 04/18/20 04/18/20 04/18/20 18:28 20:00 21:00 Temperature 99.4 F 99.0 F Pulse Rate 106 H 95 86 Respiratory 18 16 16 Rate Blood Pressure 144/87 140/76 136/78 O2 Sat by Pulse 100 96 96 Oximetry Medical Decision Making - Medical Decision Making Upon arrival the patient is placed into room 7. A thorough history and physical exam was performed. Peripheral IV is established. The patient is given 1500 mL of normal saline. She is also provided with 4 mg of Zofran. Laboratory studies are conducted. Patient has no palpable abdominal pain. Laboratory studies are reviewed. The results are discussed with the patient. She states she feels much better and is comfortable going home. I will prescribe her a prescription for Zofran. She is swabbed primary care doctor in 2-4 days. Return to the emergency department for any new or worsening symptoms. Patient was discharged home in stable condition - Lab Data Result diagrams: 04/18/20 19:18 04/18/20 19:18 Lab Results 04/18/20 04/18/20 04/18/20 Range/Units :18 19:18 19:18 WBC 12.1 H (3.8-10.6) k/uL RBC 4.26 (3.80-5.40) m/uL Hgb 13.7 (11.4-16.0) gm/dL Hct 41.3 (34.0-46.0) % MCV 97.0 (80.0-100.0) fL MCH 32.1 (25.0-35.0) pg MCHC 33.1 (31.0-37.0) g/dL RDW 11.9 (11.5-15.5) % Plt Count 259 (150-450) k/uL Neutrophils % 74 % Lymphocytes % 15 % Monocytes % 7 % Eosinophils % 0 % Basophils % 0 % Neutrophils # 9.0 H (1.3-7.7) k/uL Lymphocytes # 1.8 (1.0-4.8) k/uL Monocytes # 0.8 (0-1.0) k/uL Eosinophils # 0.1 (0-0.7) k/uL Basophils # 0.0 (0-0.2) k/uL Sodium 136 L (137-145) mmol/L Potassium 3.7 (3.5-5.1) mmol/L Chloride 104 (98-107) mmol/L Carbon Dioxide 26 (22-30) mmol/L Anion Gap 6 mmol/L BUN 16 (7-17) mg/dL Creatinine 0.62 (0.52-1.04) mg/dL Est GFR (CKD-EPI)AfAm >90 (>60 ml/min/1.73 sqM) Est GFR (CKD-EPI)NonAf >90 (>60 ml/min/1.73 sqM) Glucose 113 H (74-99) mg/dL Calcium 8.4 (8.4-10.2) mg/dL Magnesium 2.1 (1.6-2.3) mg/dL Total Bilirubin 0.7 (0.2-1.3) mg/dL AST 36 (14-36) U/L ALT 30 (4-34) U/L Alkaline Phosphatase 101 (38-126) U/L Total Protein 6.0 L (6.3-8.2) g/dL Albumin 3.6 (3.5-5.0) g/dL Lipase 44 (23-300) U/L Urine Color Yellow Urine Appearance Clear (Clear) Urine pH 6.5 (5.0-8.0) Ur Specific [place] 1.014 (1.001-1.035) Urine Protein Negative (Negative) Urine Glucose (UA) Negative (Negative) Urine Ketones Negative (Negative) Urine Blood Negative (Negative) Urine Nitrite Negative (Negative) Urine Bilirubin Negative (Negative) Urine Urobilinogen <2.0 (<2.0) mg/dL Ur Leukocyte Esterase Trace H (Negative) Urine RBC 1 (0-5) /hpf Urine WBC 2 (0-5) /hpf Ur Squamous Epith Cells <1 (0-4) /hpf Disposition Clinical Impression: Nausea and vomiting Disposition: HOME SELF-CARE Condition: Stable Instructions (If sedation given, give patient instructions): Acute Nausea and Vomiting (ED) Additional Instructions: Please follow-up with your primary care doctor in 2-4 days. Return to the ER for any new or worsening symptoms Prescriptions: Ondansetron Odt [Zofran Odt] 4 mg PO Q8HR PRN #30 tab PRN Reason: Nausea Is patient prescribed a controlled substance at d/c from ED?: No Referrals: Mandy Garrison MD [Primary Care Provider] - 1-2 days Time of Disposition: 20:59
--- NOTE | 2020-04-18 20:33 | XR ---
EXAMINATION TYPE: XR ribs LT w pa chest xray DATE OF EXAM: 04/18/2020 COMPARISON: NONE HISTORY: Rib pain TECHNIQUE: 5 views FINDINGS: Heart is normal. Lungs are clear of consolidation. There is no heart failure. There are no hilar masses. There is no pleural effusion or pneumothorax. There is deformity left seventh rib consi stent with an acute rib fracture. There is also slight deformity left eighth rib that could be a nond isplaced fracture. IMPRESSION: Fractures of left seventh and eighth ribs. No pneumothorax. No acute lung disease.
[2020-04-18 21:16] VITALS: BP 136/78; PULSE 86; TEMP 99
== END 2020-04-18 21:10 | disposition home or self-care (01) ==
LOC: EC 18:21
DX: R11.2 Nausea with vomiting, unspecified (principal); R53.83 Other fatigue; R10.84 Generalized abdominal pain; J44.9 Chronic obstructive pulmonary disease, unspecified; I10 Essential (primary) hypertension; E78.5 Hyperlipidemia, unspecified; K21.9 Gastro-esophageal reflux disease without esophagitis; Z79.51 Long term (current) use of inhaled steroids; Z79.899 Other long term (current) drug therapy; Z88.1 Allergy status to other antibiotic agents; Z88.2 Allergy status to sulfonamides; Z88.5 Allergy status to narcotic agent
CPT/HCPCS: 36415; 80053; 83690; 83735; 85025; 81001; 71101; 99284; 96374; 96361; J2405

== ENCOUNTER 2020-04-22 09:14 | Inpatient (IN) | payer MEDICARE, BC ==
[2020-04-20 09:26] VITALS: BMI 29.4
--- NOTE | 2020-04-22 09:13 | P.GSHP ---
History of Present Illness H&P Date: 04/22/20 CHIEF COMPLAINT: Colon screen HISTORY OF PRESENT ILLNESS: The patient is a 65-year-old female who presents for colon screen. Lower endoscopy was offered for further evaluation and management. PAST MEDICAL HISTORY: Please see list. PAST SURGICAL HISTORY: Please see list. MEDICATIONS: Please see list. ALLERGIES: Please see list. SOCIAL HISTORY: No illicit drug use FAMILY HISTORY: No reports of Crohn disease or ulcerative colitis. REVIEW OF ORGAN SYSTEMS: CONSTITUTIONAL: No reports of fevers or chills. PHYSICAL EXAM: VITAL SIGNS: Stable GENERAL: Well-developed pleasant in no acute distress. HEENT: No scleral icterus. Extraocular movements grossly intact. Moist buccal mucosa. NECK: Supple without lymphadenopathy. CHEST: Unlabored respirations. Equal bilateral excursions. CARDIOVASCULAR: Regular rate and rhythm. Distal 2+ pulses. ABDOMEN: Soft, nontender, nondistended. MUSCULOSKELETAL: No clubbing, cyanosis, or edema. ASSESSMENT: 1. Colon screen. PLAN: 1. Recommend proceeding with a lower endoscopy Past Medical History Past Medical History: COPD, Eye Disorder, GERD/Reflux, Hyperlipidemia, Hypertension, Osteoarthritis (OA) Additional Past Medical History / Comment(s): Ulcerative colitis, diverticulitis, benign colon polyps, nephrolithiasis, starting of bilateral cataracts, L leg varicosity, seasonal allergies. gallstones History of Any Multi-Drug Resistant Organisms: None Reported Past Surgical History: Adenoidectomy, Hysterectomy, Tonsillectomy Additional Past Surgical History / Comment(s): lithotripsies,colonoscopy with polypectomy Past Anesthesia/Blood Transfusion Reactions: No Reported Reaction Smoking Status: Former smoker - Past Family History Mother Family Medical History: Cancer Additional Family Medical History / Comment(s): Pt believes her mother had throat cancer. Father Family Medical History: Myocardial Infarction (PA) Additional Family Medical History / Comment(s): Father at the age of 83 yrs from a PA Medications and Allergies Home Medications Medication Instructions Recorded Confirmed Type Atorvastatin [Lipitor] 20 mg PO HS 05/11/16 04/20/20 History Cetirizine HCl [Zyrtec] 10 mg PO DAILY 05/11/16 04/20/20 History Acetaminophen [Tylenol] 650 mg PO Q4H PRN 03/18/18 04/20/20 History Balsalazide Disodium 1,500 mg PO BID 03/12/19 04/20/20 History Montelukast [Singulair] 10 mg PO DAILY 03/12/19 04/20/20 History Cholecalciferol [Vitamin D3 (25 2,000 unit PO DAILY 01/23/20 04/20/20 History Mcg = 1000 Iu)] Fluticasone Nasal [place] [Flonase 1 spr EA NOSTRIL DAILY PRN 04/18/20 04/20/20 History Nasal [place]] Hydrocodone/Acetaminophen [[place] 1 tab PO Q6HR PRN 04/18/20 04/20/20 History 5-325] Metoprolol Succinate [Toprol XL] 25 mg PO QAM 04/18/20 04/20/20 History Omeprazole 20 mg PO DAILY PRN 04/18/20 04/20/20 History Ondansetron Odt [Zofran Odt] 4 mg PO Q8HR PRN #30 tab 04/18/20 04/20/20 Rx Ramipril 20 mg PO BID 04/18/20 04/20/20 History amLODIPine [Norvasc] 2.5 mg PO HS 04/18/20 04/20/20 History Dicyclomine [Bentyl] 20 mg PO BID 04/20/20 04/20/20 History Xanax 1 tab PO DAILY PRN 04/20/20 04/20/20 History Allergies Allergy/AdvReac Type Severity Reaction Status Date / Time ciprofloxacin [From Cipro] Allergy Unknown Verified 04/20/20 09:04 metronidazole [From Flagyl] Allergy Unknown Verified 04/20/20 09:04 morphine AdvReac Nausea & Verified 04/20/20 09:04 Vomiting sulfamethoxazole AdvReac Rash/Hives Verified 04/20/20 09:04 [From Bactrim] trimethoprim [From Bactrim] AdvReac Rash/Hives Verified 04/20/20 09:04
[2020-04-22] MEDS ORDERED: ONDANSETRON 4 MG/2 ML VIAL ONE (10:13)
[2020-04-22] MEDS ORDERED: ONDANSETRON 4 MG/2 ML VIAL IVP ONE (10:21)
[2020-04-22] MEDS: LACTATED RINGERS 1,000 ML IV SCH ×2 (10:21→12:42)
[2020-04-22] MEDS ORDERED: PROPOFOL 10 MG/ML 20 ML VIAL IV ONE (11:07)
[2020-04-22] MEDS ORDERED: Antibiotics per Pharmacy 1 EACH MISC MISCELLANE PRN (11:30)
--- NOTE | 2020-04-22 11:30 | P.PCN ---
Date of Procedure: 04/22/20 Description of Procedure: PREOPERATIVE DIAGNOSIS: Abdominal pain Diverticulitis Sigmoid stricture POSTOPERATIVE DIAGNOSIS: Large bowel obstruction, partial due to sigmoid stricture/diverticulitis External hemorrhoids, grade 2 OPERATION: Flexible sigmoidoscopy to the sigmoid colon. Flexible sigmoidoscopy with Renetta ink tattoo, 4 mL, at 20 cm from the anal verge. SURGEON: Ania Parker MD. ANESTHESIA: MAC. INDICATIONS: The patient is a 65-year-old female who presents with change in bowel habits, abdominal pain, history of diverticulitis with stricture. Lower endoscopies is offered for diagnostic and surgical planning. Benefits and risks were described and informed consent was obtained. DESCRIPTION OF PROCEDURE: The patient had undergone Suprep. He had been brought into the endoscopy room and laid in the left lateral decubitus position. After adequate intravenous sedation, the rectum was examined with 2% lidocaine jelly. External hemorrhoids were encountered. The rectal tone was within normal limits. No lesions were palpated in the rectal vault. An Olympus colonoscope was advanced along the rectum to moderate to severe sigmoid stricture at 20 cm from the anal verge. Despite maneuvers, the pediatric colonoscope could not advance beyond the stricture. Renetta ink tattoo 4 mL was placed just inferior and along the borders of the stricture to plan for resection. The prep was fair with residual liquid stool. Internal hemorrhoids, grade 2 was found. The colonoscope was removed. FINDINGS: [place] preparation quality scale 3 (1-5) External prolapsed hemorrhoids. Scope advanced to the sigmoid colon. Sigmoid stricture with obstruction requiring resection RECOMMENDATIONS: 1. Admission for sigmoid resection due to large bowel obstruction 2. IV fluid hydration 3. Continue bowel prep due to residual stool
[2020-04-22] MEDS ORDERED: SODIUM CHLORIDE 0.9% 2,000 ML IV ONE (13:00)
[2020-04-22] MEDS ORDERED: POLYETHYLENE GLYCOL LYTES SOLN 4,000 ML SOLN.RECON PO ONE (13:00)
[2020-04-22] MEDS: ONDANSETRON 4 MG/2 ML VIAL IVP SCH ×2 (13:04→20:02)
[2020-04-22] MEDS ORDERED: HYDROmorphone 1 MG/ML 1 ML SYRINGE IVP PRN (14:03)
[2020-04-22] MEDS: NEOMYCIN 500 MG TAB PO SCH ×3 (14:11→22:47)
[2020-04-22] MEDS: KETOROLAC 15 MG/ML 1 ML VIAL IVP PRN ×2 (14:28→20:20)
[2020-04-22] MEDS: [UNRECOGNIZED DRUG - OTHER] PO SCH (14:40)
[2020-04-22 15:28] LABS: ALT 15 U/L (4-34); AST 17 U/L (14-36); African American GFR (CKD) >90 (>60 ml/min/1.73 sqM); Albumin 3.2 g/dL (3.5-5.0); Alkaline Phosphatase 94 U/L (38-126); Anion Gap 6 mmol/L; Blood Urea Nitrogen 10 mg/dL (7-17); Calcium 8.2 mg/dL (8.4-10.2); Carbon Dioxide 31 mmol/L (22-30); Chloride 102 mmol/L (98-107); Glucose 113 mg/dL (74-99); Non-African American GFR(CKD) >90 (>60 ml/min/1.73 sqM); Potassium 3.1 mmol/L (3.5-5.1); Sodium 139 mmol/L (137-145); Total Bilirubin 0.5 mg/dL (0.2-1.3); Total Protein 5.6 g/dL (6.3-8.2)
[2020-04-22 16:08] LABS: Basophils % (A) 0 %; Eosinophils # (A) 0.1 k/uL (0-0.7); Eosinophils % (A) 2 %; HCT 38.4 % (34.0-46.0); HGB 12.5 gm/dL (11.4-16.0); Lymphocytes # (A) 1.5 k/uL (1.0-4.8); Lymphocytes % (A) 17 %; MCH 31.7 pg (25.0-35.0); MCHC 32.6 g/dL (31.0-37.0); MCV 97.3 fL (80.0-100.0); Mean Platelet Volume 7.4; Monocytes # (A) 0.6 k/uL (0-1.0); Monocytes % (A) 7 %; Neutrophils # (A) 6.5 k/uL (1.3-7.7); Neutrophils % (A) 72 %; Platelet Count 309 k/uL (150-450); RBC 3.95 m/uL (3.80-5.40); RDW 11.9 % (11.5-15.5); WBC 9.1 k/uL (3.8-10.6)
[2020-04-22] MEDS ORDERED: POTASSIUM CHLORIDE ER 20 MEQ TAB.ER PO STA (17:05)
[2020-04-22] MEDS: 0.9% NACL WITH KCL 40 MEQ/L 1,000 ML IV SCH (22:18)
[2020-04-22] MEDS: amLODIPine 2.5 MG TAB PO SCH (22:47)
[2020-04-23] MEDS: ONDANSETRON 4 MG/2 ML VIAL IVP SCH ×4 (02:19→23:10)
[2020-04-23] MEDS: KETOROLAC 15 MG/ML 1 ML VIAL IVP PRN (03:14)
[2020-04-23] MEDS ORDERED: DEXAMETHASONE SOD PHOSPHATE 10 MG/ML 1 ML VIAL IV ONE (05:35)
[2020-04-23] MEDS ORDERED: fentaNYL (PF) 50 MCG/ML 2 ML AMP IVP PRN (05:35)
[2020-04-23] MEDS ORDERED: LIDOCAINE 1% (10MG/ML) FOR IV START INTRADERMA PRN (05:35)
[2020-04-23] MEDS ORDERED: MIDAZOLAM 2 MG/2 ML VIAL IV PRN (05:35)
[2020-04-23] MEDS ORDERED: LACTATED RINGERS 1,000 ML IV SCH (05:45)
[2020-04-23] MEDS: 0.9% NACL WITH KCL 40 MEQ/L 1,000 ML IV SCH ×2 (06:10→17:31)
--- NOTE | 2020-04-23 07:40 | P.PN ---
Subjective Progress Note Date: 04/23/20 CHIEF COMPLAINT: History of sigmoid diverticulitis with obstruction HISTORY OF PRESENT ILLNESS: The patient is a 65-year-old female with ulcerative colitis including diverticulitis who on colonoscopy had a large bowel obstruction of the sigmoid colon. She completed her colonoscopy yesterday with tattooing. She presents today for sigmoid colectomy of obstructive lesion of the sigmoid colon. PAST MEDICAL HISTORY: Please see list. PAST SURGICAL HISTORY: Please see list. MEDICATIONS: Please see list. ALLERGIES: Please see list. SOCIAL HISTORY: No illicit drug use FAMILY HISTORY: No reports of Crohn disease REVIEW OF ORGAN SYSTEMS: CONSTITUTIONAL: Denies any fever or chills. HEENT: Denies any trouble with vision or nosebleeds. No difficulty swallowing. Wears glasses. LYMPHATIC: The patient denies any lumps and bumps around the neck. ENDOCRINE: Denies any thyroid disorders. Has blood sugar glucose intolerance. RESPIRATORY: Denies pneumonia. CARDIOVASCULAR: Denies any chest pain, palpitations, or recent heart attacks. Has hypertensive heart disease. Has hyperlipidemia. GASTROINTESTINAL: Has chronic diverticulitis. Has gastroesophageal reflux disease. Also has ulcerative colitis. GENITOURINARY: Has increased urinary frequency. MUSCULOSKELETAL: Has back pain, stiffness, joint arthritis. NEUROLOGIC: Denies any numbness or tingling along the distal extremities. No seizure disorders or headaches. PSYCHIATRIC: Denies depression or suidical ideation. Generalized anxiety disorder. HEMATOLOGIC: Denies any abnormal bleeding or bruising. PHYSICAL EXAM: VITAL SIGNS: Stable GENERAL: Well-developed pleasant in no acute distress. HEENT: No scleral icterus. Extraocular movements grossly intact. Moist buccal mucosa. NECK: Supple without lymphadenopathy. CHEST: Unlabored respirations. Equal bilateral excursions. CARDIOVASCULAR: Regular rate and rhythm. Distal 2+ pulses. ABDOMEN: Soft, mildly distended. MUSCULOSKELETAL: No clubbing, cyanosis, or edema. NERUO: Cranial nerves 2-12 grossly intact. PSYCH: Alert and oriented to person place and time. ASSESSMENT: 1. Large bowel obstruction due to sigmoid diverticulitis PLAN: 1. Benefits and risks of surgical robotic sigmoid resection was reviewed in detail. Robotic-assisted approach was also described. Possibility of open technique with ostomy described. 2. Enhanced colon recovery program. 3. DVT prophylaxis. 4. Antibiotic prophylaxis. 5. Inpatient hospitalization greater than 2 nights. Objective - Vital Signs Vital signs: Vital Signs Temp 99.8 F H 04/22/20 19:56 Pulse 98 04/22/20 19:56 Resp 20 04/22/20 19:56 BP 149/75 04/22/20 19:56 Pulse Ox 95 04/22/20 19:56 Intake & Output 04/22/20 04/23/20 04/23/20 18:59 06:59 18:59 Intake Total 1000 Balance 1000 Weight 81.3 kg Intake: IV 1000 Other: Voiding Method Toilet # Voids 1 2 # Bowel Movements 3 - Labs CBC & Chem 7: 04/22/20 15:05 04/22/20 15:04 Labs: Abnormal Lab Results - Last 24 Hours (Table) 04/22/20 Range/Units 15:04 Potassium 3.1 L (3.5-5.1) mmol/L Carbon Dioxide 31 H (22-30) mmol/L Glucose 113 H (74-99) mg/dL Calcium 8.2 L (8.4-10.2) mg/dL Total Protein 5.6 L (6.3-8.2) g/dL Albumin 3.2 L (3.5-5.0) g/dL Assessment and Plan (1) Large bowel obstruction Current Visit: Yes Status: Acute Code(s): K56.609 - UNSP INTESTNL OBST, UNSP TO PARTIAL VERSUS COMPLETE OBST SNOMED Code(s): 950219068 (2) Diverticulitis with obstruction Current Visit: Yes Status: Acute Code(s): K57.92 - DVTRCLI OF INTEST, PART UNSP, W/O PERF OR ABSCESS W/O BLEED SNOMED Code(s): 741260593
[2020-04-23] MEDS: [UNRECOGNIZED DRUG - OTHER] PO SCH ×2 (07:52→19:49)
[2020-04-23] MEDS: lisinopriL 20 MG TAB PO SCH (07:52)
[2020-04-23] MEDS: MONTELUKAST 10 MG TAB PO SCH (07:54)
[2020-04-23 08:19] LABS: African American GFR (CKD) >90 (>60 ml/min/1.73 sqM); Anion Gap 4 mmol/L; Blood Urea Nitrogen 10 mg/dL (7-17); Calcium 7.6 mg/dL (8.4-10.2); Carbon Dioxide 27 mmol/L (22-30); Chloride 109 mmol/L (98-107); Glucose 97 mg/dL (74-99); Non-African American GFR(CKD) >90 (>60 ml/min/1.73 sqM); Potassium 3.7 mmol/L (3.5-5.1); Sodium 140 mmol/L (137-145)
[2020-04-23] MEDS: PIPERACILLIN-TAZOBACTAM 3.375 GM in SODIUM CHLORIDE 0.9% 100 ML IVPB SCH ×3 (08:25→23:10)
[2020-04-23] MEDS: METOPROLOL SUCCINATE (ER) 25 MG TAB.ER.24H PO SCH (08:25)
[2020-04-23 08:38] LABS: Glucose,Whole Blood 145 mg/dL (75-99)
[2020-04-23 09:56] LABS: Partial Thromboplastin Time 23.9 sec (22.0-30.0); Prothrombin Time 10.2 sec (9.0-12.0)
[2020-04-23] MEDS: HEPARIN SODIUM,PORCINE 5,000 UNIT/ML 1 ML VIAL SQ ONE ×2 (11:00→11:55)
[2020-04-23] MEDS ORDERED: ALVIMOPAN 12 MG CAPSULE PO ONE (11:30)
[2020-04-23] MEDS ORDERED: MELOXICAM 7.5 MG TAB PO ONE (11:30)
[2020-04-23] MEDS ORDERED: ACETAMINOPHEN TAB 500 MG TAB PO ONE (11:30)
[2020-04-23] MEDS ORDERED: fentaNYL (PF) 50 MCG/ML 2 ML AMP IV ONE ×2 (11:34→11:39)
[2020-04-23] MEDS ORDERED: MIDAZOLAM 2 MG/2 ML VIAL IV ONE (11:38)
[2020-04-23] MEDS ORDERED: ROPIVACAINE 250 MG, fentaNYL (PF) 625 MCG in SODIUM CHLORIDE 0.9% 188 ML EPIDURAL PRN (11:56)
[2020-04-23] MEDS ORDERED: NALOXONE 0.4 MG/ML 1 ML VIAL IV PRN (11:56)
[2020-04-23] MEDS ORDERED: diphenhydrAMINE 50 MG/ML 1 ML VIAL IVP PRN (11:56)
[2020-04-23] MEDS ORDERED: GLYCOPYRROLATE 0.2 MG/ML 2 ML VIAL ONE (11:58)
[2020-04-23] MEDS ORDERED: PROPOFOL 10 MG/ML 20 ML VIAL IV ONE (11:58)
[2020-04-23] MEDS ORDERED: MIDAZOLAM 2 MG/2 ML VIAL ONE (11:58)
[2020-04-23] MEDS ORDERED: ROCURONIUM 10 MG/ML (10 ML VIAL) IV ONE (11:58)
[2020-04-23] MEDS ORDERED: NEOSTIGMINE 1 MG/ML 10 ML VIAL ONE (11:58)
[2020-04-23] MEDS ORDERED: SUCCINYLCHOLINE CHLORIDE 100 MG/5 ML SYR IV ONE (11:58)
[2020-04-23] MEDS ORDERED: LIDOCAINE 1% INJ 10MG/ML (20 ML MDV) ONE (11:58)
[2020-04-23] MEDS ORDERED: fentaNYL (PF) 50 MCG/ML 2 ML AMP ONE (11:58)
[2020-04-23] MEDS ORDERED: IV FLUID CONTINUATION 1,000 ML IV ONE (12:00)
[2020-04-23] MEDS ORDERED: LACTATED RINGERS 1,000 ML IV ONE (12:35)
[2020-04-23] MEDS ORDERED: SODIUM CHLORIDE 0.9% 100 ML with ceFAZolin 2,000 MG IV ONE ×2 (12:35)
[2020-04-23] MEDS ORDERED: LIDOCAINE 1%-EPI 1:100,000 20 ML VIAL SQ ONE (12:38)
[2020-04-23] MEDS ORDERED: METOCLOPRAMIDE 5 MG/ML 2 ML VIAL IVP PRN (17:10)
[2020-04-23] MEDS ORDERED: BENZOCAINE/MENTHOL LOZENG 1 EACH LOZENGE MUCOUS MEM PRN (17:10)
[2020-04-23] MEDS ORDERED: diphenhydrAMINE 50 MG/ML 1 ML VIAL IVP ONE (17:11)
[2020-04-23] MEDS ORDERED: XANAX PO PRN (17:15)
[2020-04-23] MEDS ORDERED: FLUTICASONE 50MCG/SPRAY NASAL 16GM EA NOSTRIL PRN (17:15)
--- NOTE | 2020-04-23 17:15 | P.OP ---
Date of Procedure: 04/23/20 Description of Procedure: SURGEON: MILEY HARE MD PREOPERATIVE DIAGNOSES: 1. Sigmoid diverticulitis with large bowel obstruction 2. Hypertensive heart disease 3. Hyperlipidemia 4. Generalized anxiety disorder 5. Gastroesophageal reflux disease 6. Ulcerative colitis 7. Chronic obstructive pulmonary disease 8. Nephrolithiasis 9. Seasonal ALLERGIES POSTOPERATIVE DIAGNOSES: 1. Sigmoid diverticulitis with large bowel obstruction 2. Hypertensive heart disease 3. Hyperlipidemia 4. Generalized anxiety disorder 5. Gastroesophageal reflux disease 6. Ulcerative colitis 7. Chronic obstructive pulmonary disease 8. Nephrolithiasis 9. Seasonal ALLERGIES OPERATION: 1. Robotic-assisted daVinci Xi sigmoid colectomy with low anterior resection using 29 mm ILS 2. Robotic-assisted daVinci Xi laparoscopic lysis of adhesions over 1.5 hours 3. Intraoperative colonoscopy for flexible sigmoidoscopy Anesthesia: GETA, local, epidural Estimated Blood Loss (ml): 30 Pathology: 1. Sigmoid colon 2. EEA donuts 3. Proximal descending colotomy Condition: stable Disposition: floor COMPLICATIONS: None. Operative Findings: 1. Adherent sidmoid colon to pelvic brim of bladder with redundant dense tissue 2. Anastomosis with EEA stapler 29 mm 3. No tension or torsion along the anastomosis 4. Doughnuts thick and both sides and viable 5. Moderately redundant sigmoid colon 6. No peritoneal studding 7. Negative leak test with viable anastomosis. INDICATIONS: The patient is a 65-year-old female who presents with large bowel obstruction due to sigmoid diverticulitis. She had a colonoscopy with tattooing. Benefits and risks of surgical intervention was described in detail including infection, injury to the ureter, colostomy creation, possibility for additional surgery was discussed at length. Informed consent was obtained. All questions of the patient and family were answered. DESCRIPTION: Earlier the patient had undergone a bowel prep using the enhanced colon recovery program. The patient was transferred to the operating room and placed supine. After general induction, the abdomen was prepped and draped in standard sterile fashion. Ioban was placed along the abdomen to minimize any contamination of skin floor. A Olmos catheter was placed. After a timeout protocol was performed, attention was then brought to the left upper quadrant whereby a 0 degree 5 mm laparoscopic trocar entry was performed. The abdominal cavity was entered and insufflated to 15 mmHg pressure, which was tolerated well. Diagnostic laparoscopy confirmed moderately redundant sigmoid colon without peritoneal metastasis. The small bowel was unremarkable. Next a robotic 12-mm trocar was placed along the right lateral abdominal wall 20 cm superior from the pelvis. Two 8 mm ports were placed along the upper abdomen. Ports were placed 10 cm apart from each other including 20 cm away from the target anatomy of the left pelvis. The 12-mm port was exchanged for an 8 mm robotic port at the left upper quadrant. The robot was docked along the left lateral abdomen. The patient was positioned in steep Trendelenburg position at 17-degrees. Using atraumatic graspers and vessel sealer, the robotic system was docked and primed as described. Instruments were interchanged by the clinical assistant including hook cautery, needle tank truck driver, robotic stapler and vessel sealer. The robot stapler was prepared along the right lateral abdominal wall. The stapler 12-mm port was arranged along the right lateral abdominal wall. Next, attention was brought to identify the sigmoid colon. Dense adhesions of the sigmoid colon to the pelvic brim was identified requiring over 1.5 hours of lysis of adhesions using blunt dissection and hook cautery. A stay suture using 3- 0 silk was placed along the anterior serosa of the redundant sigmoid colon 5 cm proximal and distal to the tattoo. The sigmoid mesentery was mobilized using a vessel sealer whereby the descending colon was marked and tagged. Using multiple fires of the robot stapler 60 mm black load, the proximal sigmoid colon was divided. The mesentery of the sigmoid colon was mobilized towards the pelvic brim and sacral promontory using a vessel sealer and hook cautery. Next, the sigmoid colon was divided using the robotic stapler 60 mm black staple loads. The rest of the sigmoid colon mesentery was mobilized using vessel sealer. Additionally, the sigmoid colon was mobilized onto the colon to minimize injury to the ureters. I went to the foot of the bed to confirm sizers and placement of 29-mm ILS stapler. I re-scrubbed into the case. The robotic arms were temporarily undocked. A 29-mm anvil was placed with a 3-0 silk sutured at the tip of the anvil special services director. The the anvil was placed via the left upper quadrant 12 mm port. All robotic arms were re-docked. I went back to the console. The staple line was opened using cautery. The anvil was entered into the proximal descending colon. The colotomy was closed using 60 mm black load. Next, the sharp tip of the anvil special services director was brought through the staple line. The anvil special services director was removed from the abdomen using empty clip appliers. I went to the foot of the bed to place the ILS stapler via the rectum. The anvil and stapler were mated for 1 minute. The doughnuts were intact on both sides and thick. An intraoperative leak test was performed as I inserted the colonoscope to the anastomosis for flexible sigmoidoscopy. Endoscopic images were obtained. Irrigation was placed in the pelvis and no air leaks were identified. Irrigation fluid was aspirated from the pelvis until dry. I went back to the console. All sponges and needles were removed from the abdominal cavity. The robot was undocked. I re-scrubbed into the case. Via the left upper quadrant port, the sigmoid colon was removed. All sponges were removed from the abdominal cavity. The left upper quadrant incision was widened to 3-cm. No contamination had occurred throughout the case. The fascial defect was oversewn using 0 Vicryl and a Mo Roca. Next all pneumoperitoneum was evacuated from the abdominal cavity. The 8-mm trocar sites were reapproximated using 4-0 Monocryl in an interrupted subcuticular fashion. Local anesthetic was infiltrated to all wounds for postop analgesia. All incisions were also cleansed with diluted hydrogen peroxide. An Optifoam surgical dressing was placed over the epigastrium of the colon extraction site and drain site. Liquid glue was applied to the rest of the skin incisions. The patient had tolerated the procedure well. The patient was extubated successfully. The patient was transferred to the postanesthesia care unit in stable condition.
[2020-04-23] MEDS ORDERED: ALPRAZolam 0.25 MG TAB PO PRN (18:21)
[2020-04-23] MEDS: amLODIPine 2.5 MG TAB PO SCH (20:33)
[2020-04-23] MEDS: HEPARIN SODIUM,PORCINE 5,000 UNIT/ML 1 ML VIAL SQ SCH (20:33)
[2020-04-24] MEDS: [UNRECOGNIZED DRUG - OTHER] PO SCH (04:51)
[2020-04-24] MEDS: LACTATED RINGERS 1,000 ML IV SCH (04:52)
[2020-04-24] MEDS: ONDANSETRON 4 MG/2 ML VIAL IVP SCH ×2 (05:23→11:42)
[2020-04-24] MEDS: 0.9% NACL WITH KCL 40 MEQ/L 1,000 ML IV SCH ×3 (05:23→12:39)
[2020-04-24 06:55] LABS: Basophils % (A) 0 %; Eosinophils # (A) 0.1 k/uL (0-0.7); Eosinophils % (A) 1 %; HCT 33.1 % (34.0-46.0); HGB 10.4 gm/dL (11.4-16.0); Lymphocytes # (A) 2.1 k/uL (1.0-4.8); Lymphocytes % (A) 19 %; MCH 31.3 pg (25.0-35.0); MCHC 31.5 g/dL (31.0-37.0); MCV 99.2 fL (80.0-100.0); Mean Platelet Volume 7.5; Monocytes # (A) 0.7 k/uL (0-1.0); Monocytes % (A) 6 %; Neutrophils # (A) 8.1 k/uL (1.3-7.7); Neutrophils % (A) 72 %; Platelet Count 291 k/uL (150-450); RBC 3.33 m/uL (3.80-5.40); RDW 12.5 % (11.5-15.5); WBC 11.3 k/uL (3.8-10.6)
[2020-04-24] MEDS: METOPROLOL SUCCINATE (ER) 25 MG TAB.ER.24H PO SCH (07:39)
[2020-04-24] MEDS: MONTELUKAST 10 MG TAB PO SCH (07:39)
[2020-04-24] MEDS: PIPERACILLIN-TAZOBACTAM 3.375 GM in SODIUM CHLORIDE 0.9% 100 ML IVPB SCH ×2 (07:39→16:02)
[2020-04-24] MEDS: HEPARIN SODIUM,PORCINE 5,000 UNIT/ML 1 ML VIAL SQ SCH (07:39)
[2020-04-24] MEDS: lisinopriL 20 MG TAB PO SCH (07:40)
[2020-04-24 08:03] VITALS: RESP 19
[2020-04-24] MEDS ORDERED: TAMSULOSIN 0.4 MG CAP.ER.24H PO SCH (08:30)
[2020-04-24] MEDS ORDERED: LORATADINE 10 MG TAB PO SCH (09:00)
[2020-04-24] MEDS ORDERED: ALVIMOPAN 12 MG CAPSULE PO SCH (09:00)
[2020-04-24 10:09] LABS: Ferritin 253.8 ng/mL (10.0-291.0)
[2020-04-24 10:12] LABS: % Iron Saturation 17.84 (12.00-45.00); African American GFR (CKD) 110.1 (60.0-200.0); Anion Gap 3.6 mmol/L (4.00-12.00); BUN/Creat Ratio 11.67 Ratio (12.00-20.00); Calcium 7.6 mg/dL (8.7-10.3); Carbon Dioxide 24.4 mmol/L (21.6-31.8); Magnesium 1.8 mg/dL (1.5-2.4); Phosphorus 1.9 mg/dL (2.4-5.1); Potassium 4.5 mmol/L (3.5-5.5)
[2020-04-24] MEDS ORDERED: Phosphorus Replacement Protoco 1 EACH MISC MISCELLANE PRN (11:06)
[2020-04-24 11:34] LABS: Glucose,Whole Blood 83 mg/dL (75-99)
[2020-04-24] MEDS: MAGNESIUM SULFATE-D5W PMX 1 GM in DEXTROSE/WATER 1 100ML.BAG IVPB SCH ×2 (11:43→12:40)
[2020-04-24] MEDS: SODIUM PHOSPHATE 10 MMOL in SODIUM CHLORIDE 0.9% 250 ML IVPB SCH ×3 (12:39→16:01)
--- NOTE | 2020-04-24 13:11 | P.PN ---
Subjective Progress Note Date: 04/24/20 CHIEF COMPLAINT: History of sigmoid diverticulitis with obstruction HISTORY OF PRESENT ILLNESS: The patient is a 65-year-old female status low anterior resection for large bowel obstruction due to diverticulitis. She is passing flatus and moderate bowel movements. REVIEW OF ORGAN SYSTEMS: No fevers or chills. Having bowel movements. No nausea or vomiting. PHYSICAL EXAM: VITAL SIGNS: Stable GENERAL: Well-developed pleasant in no acute distress. HEENT: No scleral icterus. Extraocular movements grossly intact. Moist buccal mucosa. CHEST: Unlabored respirations. Equal bilateral excursions. CARDIOVASCULAR: Regular rate and rhythm. Distal 2+ pulses. ABDOMEN: No peritonitis. Binder present. MUSCULOSKELETAL: No clubbing, cyanosis, or edema. NERUO: Cranial nerves 2-12 grossly intact. PSYCH: Alert and oriented to person place and time. LABS: Magnesium low at 1.8. Phosphorus low 1.9. Hemoglobin down to 10.9. Iron low. ASSESSMENT: 1. Large bowel obstruction due to sigmoid diverticulitis 2. Iron deficiency anemia 3. Hypophosphatemia PLAN: 1. Iron infusion for low iron 2. Replace low phosphorus level protocol 3. Replace magnesium for goal 2.0 4. As she is passing flatus, having bowel movements, will discontinue barajas and epidural per patient request 5. Anticipated discharge today. Objective - Vital Signs Vital signs: Vital Signs Temp 97.3 F L 04/24/20 08:01 Pulse 87 04/24/20 08:01 Resp 19 04/24/20 08:01 BP 107/68 04/24/20 08:01 Pulse Ox 98 04/24/20 08:01 Intake & Output 04/23/20 04/24/20 04/24/20 18:59 06:59 18:59 Intake Total 1300 650 Output Total 630 2024 0 Balance 670 -2024 650 Intake: IV 1300 Intake, IV Titration 230 Amount 0.9% NaCl with KCl 40 Meq 130 /l 1,000 ml @ 130 mls/hr IV .[id number] [facility] Rx#: [id number] Piperacillin-Tazobactam 3 100 .375 gm In Sodium Chloride 0.9% 100 ml @ 25 mls/hr IVPB Q8HR [facility] Rx# :[id number] Oral 420 Output: Urine 600 2024 0 Estimated Blood Loss 30 Other: Voiding Method Indwelling Catheter Indwelling Catheter # Bowel Movements 1 - Labs CBC & Chem 7: 04/24/20 06:33 04/24/20 06:33 Labs: Abnormal Lab Results - Last 24 Hours (Table) 04/24/20 04/24/20 Range/Units 06:33 06:33 WBC 11.3 H (3.8-10.6) k/uL RBC 3.33 L (3.80-5.40) m/uL Hgb 10.4 L (11.4-16.0) gm/dL Hct 33.1 L (34.0-46.0) % Neutrophils # 8.1 H (1.3-7.7) k/uL Chloride 115 H (96-109) mmol/L Anion Gap 3.60 L (4.00-12.00) mmol/L BUN 7.0 L (9.0-27.0) mg/dL BUN/Creatinine Ratio 11.67 L (12.00-20.00) Ratio Calcium 7.6 L (8.7-10.3) mg/dL Phosphorus 1.9 L (2.4-5.1) mg/dL Iron 33 L (50-170) ug/dL TIBC 185 L (228-460) ug/dL Assessment and Plan (1) Large bowel obstruction Current Visit: Yes Status: Acute Code(s): K56.609 - UNSP INTESTNL OBST, UNSP TO PARTIAL VERSUS COMPLETE OBST SNOMED Code(s): 215528493 (2) Diverticulitis with obstruction Current Visit: Yes Status: Acute Code(s): K57.92 - DVTRCLI OF INTEST, PART UNSP, W/O PERF OR ABSCESS W/O BLEED SNOMED Code(s): 930342915
[2020-04-24] MEDS ORDERED: IBUPROFEN 600 MG TAB PO SCH (13:15)
[2020-04-24] MEDS ORDERED: ACETAMINOPHEN IV (For NPO) 1,000 MG in EMPTY BAG 1 BAG IVPB SCH (13:15)
[2020-04-24 15:08] VITALS: BP 123/75; PULSE 95; TEMP 98.7
--- NOTE | 2020-04-24 20:22 | P.DS ---
Providers Date of admission: 04/23/20 11:26 Expected date of discharge: 04/24/20 Attending physician: Ania Parker Primary care physician: Mandy Garrison - Discharge Diagnosis(es) (1) Large bowel obstruction Status: Acute (2) Diverticulitis with obstruction Status: Acute (3) Iron deficiency anemia Status: Acute (4) Ulcerative colitis Status: Acute (5) Chronic pain syndrome Status: Acute (6) Hypertensive heart disease Status: Acute Hospital Course: POSTOPERATIVE DIAGNOSES: 1. Sigmoid diverticulitis with large bowel obstruction 2. Hypertensive heart disease 3. Hyperlipidemia 4. Generalized anxiety disorder 5. Gastroesophageal reflux disease 6. Ulcerative colitis 7. Chronic obstructive pulmonary disease 8. Nephrolithiasis 9. Seasonal ALLERGIES CHIEF COMPLAINT: History of sigmoid diverticulitis with obstruction COURSE: The patient is a 65-year-old female status low anterior resection for large bowel obstruction due to diverticulitis. She was passing flatus and had moderate bowel movements following surgery. Her pain was tolerable. Discharge instructions were reviewed. Prior to discharge, she was treated for low phosphate, magnesium. She was tolerating liquid diet. Procedures: OPERATION: 1. Robotic-assisted daVinci Xi sigmoid colectomy with low anterior resection using 29 mm ILS 2. Robotic-assisted daVinci Xi laparoscopic lysis of adhesions over 1.5 hours 3. Intraoperative colonoscopy for flexible sigmoidoscopy Anesthesia: GETA, local, epidural Estimated Blood Loss (ml): 30 Pathology: 1. Sigmoid colon 2. EEA donuts 3. Proximal descending colotomy Condition: stable Disposition: floor COMPLICATIONS: None. Patient Condition at Discharge: Good Plan - Discharge Summary Discharge Rx Participant: Yes New Discharge Prescriptions: New Ibuprofen [Motrin] 600 mg PO Q8HR PRN #30 tab PRN Reason: Pain Continue Atorvastatin [Lipitor] 20 mg PO HS Cetirizine HCl [Zyrtec] 10 mg PO DAILY Acetaminophen [Tylenol] 650 mg PO Q4H PRN PRN Reason: Pain Montelukast [Singulair] 10 mg PO DAILY Fluticasone Nasal [place] [Flonase Nasal [place]] 1 spr EA NOSTRIL DAILY PRN PRN Reason: allergies amLODIPine [Norvasc] 2.5 mg PO HS Ramipril 20 mg PO BID Metoprolol Succinate [Toprol XL] 25 mg PO QAM Omeprazole 20 mg PO DAILY PRN PRN Reason: GERD Hydrocodone/Acetaminophen [[place] 5-325] 1 tab PO Q6HR PRN PRN Reason: Pain Ondansetron Odt [Zofran ODT] 4 mg PO Q8HR PRN #30 tab PRN Reason: Nausea Xanax 1 tab PO DAILY PRN PRN Reason: Anxiety Discontinued Balsalazide Disodium 1,500 mg PO BID Cholecalciferol [Vitamin D3 (25 Mcg = 1000 Iu)] 2,000 unit PO DAILY Dicyclomine [Bentyl] 20 mg PO BID Discharge Medication List Atorvastatin [Lipitor] 20 mg PO HS 05/11/16 [History] Cetirizine HCl [Zyrtec] 10 mg PO DAILY 05/11/16 [History] Acetaminophen [Tylenol] 650 mg PO Q4H PRN 03/18/18 [History] Montelukast [Singulair] 10 mg PO DAILY 03/12/19 [History] Fluticasone Nasal [place] [Flonase Nasal [place]] 1 spr EA NOSTRIL DAILY PRN 04/18/20 [History] Hydrocodone/Acetaminophen [[place] 5-325] 1 tab PO Q6HR PRN 04/18/20 [History] Metoprolol Succinate [Toprol XL] 25 mg PO QAM 04/18/20 [History] Omeprazole 20 mg PO DAILY PRN 04/18/20 [History] Ondansetron Odt [Zofran ODT] 4 mg PO Q8HR PRN #30 tab 04/18/20 [Rx] Ramipril 20 mg PO BID 04/18/20 [History] amLODIPine [Norvasc] 2.5 mg PO HS 04/18/20 [History] Xanax 1 tab PO DAILY PRN 04/20/20 [History] Ibuprofen [Motrin] 600 mg PO Q8HR PRN #30 tab 04/24/20 [Rx] Follow up Appointment(s)/Referral(s): Ania Parker MD [STAFF PHYSICIAN] - 04/27/20 (Please call Sunday to make appointment) Patient Instructions/Handouts: Laparoscopic Bowel Resection (DC), Full Liquid Diet (DC) Activity/Diet/Wound Care/Special Instructions: Wear abdominal binder at all times for comfort. Please notify your pain specialist for narcotic pain meds. No lifting over 4 pounds in 4 weeks until May 21. May shower. No bath tub soaks for two weeks until May 08 Avoid steak, tough meats and seeds such as raspberry seeds. No driving while on narcotics. Use Tylenol and ibuprofen scheduled for the next 24-48 hours for best pain relief. Use ice along incisions for the today to prevent swelling. Discharge Disposition: HOME SELF-CARE
[2020-04-25] MEDS ORDERED: SODIUM FERRIC GLUCONAT-SUCROSE 125 MG in SODIUM CHLORIDE 0.9% 100 ML IVPB SCH (09:00)
--- NOTE | 2020-04-29 10:26 | CDI ---
Documentation Clarification Form Date: 04/29/20 From: Dania Weems CCS Phone: If you have a question about this query, please contact Alia Mosquera, Adjunct Business Instructor at [phone] between 8am and 5pm. Admit Date: 04/23/20 Discharge Date: 04/24/20 Patient Name: Dayan Corado Visit Number: [id number] ATTENTION: The Clinical Documentation Specialists (CDI) and [facility] Coding Staff appreciate your assistance in clarifying documentation. Please respond to the clarification below the line at the bottom and electronically sign. The CDI & [facility] Coding staff will review the response and follow-up if needed. Please note: Queries are made part of the Legal Health Record. If you have any questions, please contact the author of this message via ITS. Dear Dr. Parker, The final diagnosis of the pathology report states: Diverticulitis and diverticulosis with pericolic abscess formation and scarring. Documentation states: Sigmoid diverticulitis with large bowel obstruction Patient history/risk factors: Redundant colon, Diverticulitis, Partial obstruction, Ulcerative colitis, HHD, COPD, Adhesions Clinical Indicators: Partial obstruction Treatment: Sigmoid colectomy In your professional opinion, do you agree with the pathology report specifying pericolic abscess? Sigmoid abscess Mesenteric abscess Abscess not present Other (please specify) Unable to determine I agree with pathologist as this is microscopic finding. KM 04/29/20 15:53 MTDD
== END 2020-04-24 16:28 | disposition home or self-care (01) | DRG 329 ==
LOC: ORWHC2ENDO 09:14 → 6PED 11:21 → OBSVTOIN 04-23 11:26 → ORWHC2ENDO 04-23 12:37 → 4SSUR 04-23 12:42
PROVIDERS: ADMIT Surgery Plastic and Reconstructive Surgery; ATTEND Surgery Plastic and Reconstructive Surgery
PROC: 0DJD8ZZ Inspection of Lower Intestinal Tract, Via Natural or Artificial Opening Endoscopic (ICD-10-PCS; 2020-04-22)
PROC: 0DNE4ZZ Release Large Intestine, Percutaneous Endoscopic Approach (ICD-10-PCS; principal; 2020-04-23 11:10)
PROC: 0DBP4ZZ Excision of Rectum, Percutaneous Endoscopic Approach (ICD-10-PCS; principal; 2020-04-23 11:10)
PROC: 0DTN4ZZ Resection of Sigmoid Colon, Percutaneous Endoscopic Approach (ICD-10-PCS; principal; 2020-04-23 11:10)
PROC: 0DJD8ZZ Inspection of Lower Intestinal Tract, Via Natural or Artificial Opening Endoscopic (ICD-10-PCS; principal; 2020-04-23 11:10)
PROC: 8E0W4CZ Robotic Assisted Procedure of Trunk Region, Percutaneous Endoscopic Approach (ICD-10-PCS; principal; 2020-04-23 11:10)
DX: K56.600 Partial intestinal obstruction, unspecified as to cause (principal); K65.1 Peritoneal abscess; Q43.8 Other specified congenital malformations of intestine; K51.90 Ulcerative colitis, unspecified, without complications; K57.20 Diverticulitis of large intestine with perforation and abscess without bleeding; E83.39 Other disorders of phosphorus metabolism; I11.9 Hypertensive heart disease without heart failure; J44.9 Chronic obstructive pulmonary disease, unspecified; K64.4 Residual hemorrhoidal skin tags; K64.8 Other hemorrhoids; E78.5 Hyperlipidemia, unspecified; F41.1 Generalized anxiety disorder; K21.9 Gastro-esophageal reflux disease without esophagitis; J30.2 Other seasonal allergic rhinitis; K66.0 Peritoneal adhesions (postprocedural) (postinfection); M19.90 Unspecified osteoarthritis, unspecified site; H26.9 Unspecified cataract; I83.92 Asymptomatic varicose veins of left lower extremity; D50.9 Iron deficiency anemia, unspecified; G89.4 Chronic pain syndrome; Z79.899 Other long term (current) drug therapy; Z87.442 Personal history of urinary calculi; Z90.710 Acquired absence of both cervix and uterus; Z98.890 Other specified postprocedural states; Z86.010 Personal history of colon polyps; Z87.891 Personal history of nicotine dependence; Z87.19 Personal history of other diseases of the digestive system; Z88.1 Allergy status to other antibiotic agents; Z88.5 Allergy status to narcotic agent; Z88.2 Allergy status to sulfonamides; Z80.8 Family history of malignant neoplasm of other organs or systems; Z82.49 Family history of ischemic heart disease and other diseases of the circulatory system
CPT/HCPCS: 45335; 80048; 80053; 82728; 83540; 83550; 83735; 84100; 85025; 85610; 85730; 86850; 86900; 86901; 88307; 93005

== ENCOUNTER → 2020-05-31 | Outpatient (CLI) | payer MEDICARE, BC ==
[2020-05-31 15:42] LABS: Albumin 4.4 g/dL (3.80-4.90); Albumin/Globulin Ratio 2.44 (1.60-3.17); Anion Gap 6.9 mmol/L (4.00-12.00); Calcium 9.2 mg/dL (8.7-10.3); Carbon Dioxide 28.1 mmol/L (21.6-31.8); Chol/HDL Ratio 3.59; Globulin 1.8 g/dL (1.6-3.3); LDL Cholesterol,Calculated 121.8 mg/dL (0.0-131.0); Non-African American GFR(CKD) 76.8 (60.0-200.0); Potassium 4.4 mmol/L (3.5-5.5); Total Bilirubin 0.5 mg/dL (0.3-1.2); Total Protein 6.2 g/dL (6.2-8.2); VLDL Calculation 23.2 mg/dL (5.00-40.00)
== END | disposition home or self-care (01) ==
LOC: LABWHC1 08:29
PROVIDERS: ATTEND Family Medicine
DX: E78.00 Pure hypercholesterolemia, unspecified (principal)
CPT/HCPCS: 36415; 80053; 80061

== ENCOUNTER → 2020-10-27 | Outpatient (CLI) | payer MEDICARE, BC ==
[2020-10-27 11:07] LABS: Basophils # (A) 0.02 X 10*3/uL (0.00-0.10); Basophils % (A) 0.4 %; Eosinophils # (A) 0.18 X 10*3/uL (0.04-0.35); HGB 12.4 g/dL (12.0-15.0); Lymphocytes # (A) 1.49 X 10*3/uL (0.90-5.00); Lymphocytes % (A) 32.7 %; MCH 31.1 pg (27.0-32.0); MCHC 32.6 g/dL (32.0-37.0); MCV 95.2 fL (80.0-97.0); Mean Platelet Volume 10.8 fL (9.5-12.2); Monocytes # (A) 0.47 X 10*3/uL (0.20-1.00); Monocytes % (A) 10.3 %; Neutrophils # (A) 2.38 X 10*3/uL (1.80-7.70); Neutrophils % (A) 52.4 %; Platelet Count 255 X 10*3/uL (140-440); RBC 3.99 X 10*6/uL (4.10-5.20); RDW 11.9 % (11.5-14.5); WBC 4.55 X 10*3/uL (4.50-10.00)
[2020-10-27 21:14] LABS: African American GFR (CKD) 77.2 (60.0-200.0); Albumin 4.6 g/dL (3.80-4.90); Albumin/Globulin Ratio 2.88 (1.60-3.17); Anion Gap 7.9 mmol/L (4.00-12.00); BUN/Creat Ratio 26.67 Ratio (12.00-20.00); Calcium 9.2 mg/dL (8.7-10.3); Carbon Dioxide 27.1 mmol/L (21.6-31.8); Chol/HDL Ratio 2.9; Globulin 1.6 g/dL (1.6-3.3); LDL Cholesterol,Calculated 99.4 mg/dL (0.0-131.0); Non-African American GFR(CKD) 66.6 (60.0-200.0); Potassium 4.5 mmol/L (3.5-5.5); Total Bilirubin 0.6 mg/dL (0.3-1.2); Total Protein 6.2 g/dL (6.2-8.2); VLDL Calculation 16.6 mg/dL (5.00-40.00)
== END | disposition home or self-care (01) ==
LOC: LABWHC1 07:37
PROVIDERS: ATTEND Family Medicine
DX: E78.00 Pure hypercholesterolemia, unspecified (principal); I10 Essential (primary) hypertension; R35.0 Frequency of micturition
CPT/HCPCS: 36415; 80053; 80061; 85025

== ENCOUNTER → 2021-02-24 | Outpatient (CLI) | payer MEDICARE, BC ==
--- NOTE | 2021-02-24 09:05 | US ---
EXAMINATION TYPE: US abdomen complete DATE OF EXAM: 02/24/2021 COMPARISON: 04/02/2020 CLINICAL HISTORY: 66-year-old female K21.9, R10.13, R10.811, R11.0. Back pain, RUQ pain, known GB iss ues TECHNIQUE: Multiple sonographic images of the abdomen are obtained. FINDINGS: EXAM MEASUREMENTS: Liver Length: 17.8 cm Gallbladder Wall: 0.3 cm, upper limits of normal CBD: 0.5 cm Spleen: 11.7 cm Right Kidney: 11.2 x 5.4 x 5.0 cm Left Kidney: 12.2 x 4.4 x 5.3 cm Pancreas: Only portions of the pancreatic neck and body are seen. Suboptimal visualization of the pa ncreatic head and tail due to shadowing from bowel gas. Liver: Borderline in size. No focal lesion. Gallbladder: A couple 5 mm rounded mural based nodules, one along the anterior wall and one along th e posterior wall appears relatively stable compared to 04/02/2020. Small gallbladder wall polyps are s uspected. Additional one-year follow-up can be performed. No abnormal gallbladder distention, wall th ickening, or shadowing calculi seen. Evidence for sonographic Ha's sign: NO CBD: wnl Spleen: wnl Right Kidney: No hydronephrosis. 1.1cm midpole stone seen noted on previous . Possible renal cortica l thinning. Correlate for any underlying chronic kidney disease. Left Kidney: No hydronephrosis. Possible renal cortical thinning. Correlate for any underlying chron ic kidney disease. Upper IVC: wnl Abd Aorta: wnl IMPRESSION: 1. A couple 5 mm rounded mural based nodules within the gallbladder relatively unchanged from 04/02/20 20. Gallbladder wall polyps are suspected. Additional one-year follow-up recommended. 2. A 1.1 cm right midpole nonobstructive renal calculus. 3. Possible renal cortical thinning on both sides. Correlate for any underlying chronic kidney diseas e.
== END | disposition home or self-care (01) ==
LOC: RADUSWWP 08:05
PROVIDERS: ATTEND Family Medicine
DX: K82.8 Other specified diseases of gallbladder (principal); N20.0 Calculus of kidney
CPT/HCPCS: 76700

== ENCOUNTER 2021-03-09 07:21 | Emergency (ER) | payer MEDICARE, BC ==
[2021-03-09 07:30] VITALS: RESP 16
--- NOTE | 2021-03-09 08:09 | ED ---
General Adult HPI - General Chief complaint: Recheck/Abnormal Lab/Rx Stated complaint: UTI Time Seen by Provider: 03/09/21 07:34 Source: patient Mode of arrival: ambulatory Limitations: no limitations - History of Present Illness Initial comments: 66-year-old female presents to the emergency room for a chief complaint of possible urinary tract infection. Patient reports that over the past couple days she is told to pressure in her suprapubic area and low back. Patient states this feels like previous urinary tract infections she has had. Patient d enies any significant pain. Denies vomiting. Patient states she has a history of kidney stones but this does not feel like that as it is not very painful. Denies fevers or chills. States she is eating and drinking.Patient has no other complaints at this time including shortness of breath, chest pain, abdominal pain, nausea or vomiting, headache, or visual changes. - Related Data Home Medications Medication Instructions Recorded Confirmed Atorvastatin [Lipitor] 20 mg PO HS 05/11/16 03/09/21 Cetirizine HCl [Zyrtec] 10 mg PO DAILY 05/11/16 03/09/21 Montelukast [Singulair] 10 mg PO HS 03/12/19 03/09/21 Fluticasone Nasal [place] [Flonase 1 spr EA NOSTRIL DAILY PRN 04/18/20 03/09/21 Nasal [place]] Hydrocodone/Acetaminophen [[place] 1 tab PO Q6H PRN 04/18/20 03/09/21 5-325] Metoprolol Succinate [Toprol XL] 25 mg PO DAILY 04/18/20 03/09/21 Ramipril 10 mg PO BID 04/18/20 03/09/21 amLODIPine [Norvasc] 2.5 mg PO HS 04/18/20 03/09/21 Balsalazide Disodium 2,250 mg PO BID 03/09/21 03/09/21 Cholecalciferol [Vitamin D3 (25 50 mcg PO DAILY 03/09/21 03/09/21 Mcg = 1000 Iu)] Omeprazole 20 mg PO DAILY PRN 03/09/21 03/09/21 Previous Rx's Medication Instructions Recorded Ciprofloxacin HCl [Cipro] 250 mg PO Q12H 7 Days #14 tab 03/09/21 Allergies Allergy/AdvReac Type Severity Reaction Status Date / Time ciprofloxacin [From Cipro] Allergy Unknown Verified 03/09/21 08:28 metronidazole [From Flagyl] Allergy Rash/Hives Verified 03/09/21 08:28 morphine AdvReac Nausea & Verified 03/09/21 08:28 Vomiting sulfamethoxazole AdvReac Rash/Hives Verified 03/09/21 08:28 [From Bactrim] trimethoprim [From Bactrim] AdvReac Rash/Hives Verified 03/09/21 08:28 Review of Systems ROS Statement: Those systems with pertinent positive or pertinent negative responses have been documented in the HPI. ROS Other: All systems not noted in ROS Statement are negative. Past Medical History Past Medical History: COPD, Eye Disorder, GERD/Reflux, Hyperlipidemia, Hypertension, Osteoarthritis (OA) Additional Past Medical History / Comment(s): Ulcerative colitis, diverticulitis, benign colon polyps, nephrolithiasis, starting of bilateral cataracts, L leg varicosity, seasonal allergies. History of Any Multi-Drug Resistant Organisms: None Reported Past Surgical History: Adenoidectomy, Hysterectomy, Tonsillectomy Additional Past Surgical History / Comment(s): lithotripsies,colonoscopy with polypectomy Past Anesthesia/Blood Transfusion Reactions: No Reported Reaction Past Psychological History: No Psychological Hx Reported Smoking Status: Former smoker Past Alcohol Use History: None Reported Past Drug Use History: None Reported - Past Family History Mother Family Medical History: Cancer Additional Family Medical History / Comment(s): Pt believes her mother had throat cancer. Father Family Medical History: Myocardial Infarction ([place]) Additional Family Medical History / Comment(s): Father at the age of 83 yrs from a [place] General Exam Limitations: no limitations General appearance: alert, in no apparent distress Head exam: Present: atraumatic Eye exam: Present: normal appearance, PERRL, EOMI. Absent: scleral icterus ENT exam: Present: normal exam, mucous membranes moist Neck exam: Present: normal inspection, full ROM. Absent: tenderness Respiratory exam: Present: normal lung sounds bilaterally. Absent: respiratory distress, wheezes Cardiovascular Exam: Present: regular rate, normal rhythm, normal heart sounds GI/Abdominal exam: Present: soft, normal bowel sounds. Absent: distended, tenderness Back exam: Absent: CVA tenderness (R), CVA tenderness (L) Course Vital Signs 03/09/21 07:27 Temperature 98.3 F Pulse Rate 97 Respiratory 16 Rate Blood Pressure 127/71 O2 Sat by Pulse 97 Oximetry Medical Decision Making - Medical Decision Making vitals are stable. Patient is well-appearing. Patient does not have any abdominal tenderness. No CVA tenderness. No fevers at home. Urine does show evidence of infection. I did review previous culture from August and unfortunately urine is not sensitive to penicillins,first gen cephalosporin such as Keflex, Rocephin, or Macrobid. Patient did have Cipro and Bactrim listed as ALLERGIES. I discussed these with her as they are sensitive. She reports that she has had Cipro in the past and does not have an ALLERGIC reaction to this. Therefore patient will be given Cipro. I did discuss black box warning sits patient is aware of. We will reculture this urine to see if she is sensitive to other antibiotics. She will follow-up with her doctor. She will return here for any worsening symptoms. - Lab Data Lab Results 03/09/21 Range/Units 07:53 Urine Color Light Yellow Urine Appearance Cloudy H (Clear) Urine pH 6.0 (5.0-8.0) Ur Specific [place] 1.006 (1.001-1.035) Urine Protein Negative (Negative) Urine Glucose (UA) Negative (Negative) Urine Ketones Negative (Negative) Urine Blood Negative (Negative) Urine Nitrite Negative (Negative) Urine Bilirubin Negative (Negative) Urine Urobilinogen <2.0 (<2.0) mg/dL Ur Leukocyte Esterase Large H (Negative) Urine WBC 98 H (0-5) /hpf Urine WBC Clumps Few H (None) /hpf Ur Squamous Epith Cells <1 (0-4) /hpf Disposition Clinical Impression: UTI (urinary tract infection) Disposition: HOME SELF-CARE Condition: Good Instructions (If sedation given, give patient instructions): Urinary Tract Infection in Women (ED) Additional Instructions: Please take Cipro as directed. Follow-up with your doctor. Return to the emergency room for any worsening symptoms. Prescriptions: Ciprofloxacin HCl [Cipro] 250 mg PO Q12H 7 Days #14 tab Is patient prescribed a controlled substance at d/c from ED?: No Referrals: Mandy Garrison MD [Primary Care Provider] - 1-2 days Time of Disposition: 09:20
[2021-03-09 08:23] LABS: Appearance,Urine Cloudy (Clear); Bilirubin,Urine Negative (Negative); Blood,Urine Negative (Negative); Color,Urine Light Yellow; Glucose,Urine (UA) Negative (Negative); Ketones,Urine Negative (Negative); Leukocyte Esterase,Urine Large (Negative); Nitrite,Urine Negative (Negative); Protein,Urine Negative (Negative); Specific Gravity,Urine 1.006 (1.001-1.035); Squamous Epithelial Cell,Urine <1 /hpf (0-4); Urobilinogen,Urine <2.0 mg/dL (<2.0); WBC,Urine 98 /hpf (0-5)
[2021-03-09] MEDS ORDERED: cefTRIAXone 1,000 MG VIAL (IM USE) IM STA (08:41)
[2021-03-09] MEDS ORDERED: CIPROFLOXACIN HCL 500 MG TAB PO STA (09:18)
[2021-03-09 09:39] VITALS: BP 128/78; PULSE 75; TEMP 98.5
== END 2021-03-09 09:37 | disposition home or self-care (01) ==
LOC: EC 07:21
DX: N39.0 Urinary tract infection, site not specified (principal); E78.5 Hyperlipidemia, unspecified; I10 Essential (primary) hypertension; J44.9 Chronic obstructive pulmonary disease, unspecified; M19.90 Unspecified osteoarthritis, unspecified site; K21.9 Gastro-esophageal reflux disease without esophagitis; Z87.891 Personal history of nicotine dependence; Z79.899 Other long term (current) drug therapy
CPT/HCPCS: 81001; 87086; 99283; 96372; J0696; 87077; 87186

== ENCOUNTER → 2021-04-06 | Outpatient (CLI) | payer MEDICARE, BC ==
--- NOTE | 2021-04-06 09:49 | XR ---
EXAMINATION TYPE: XR KUB DATE OF EXAM: 04/06/2021 COMPARISON: 03/25/2020 HISTORY: Pain TECHNIQUE: One view abdominal series FINDINGS: The osseous structures are intact. The bowel gas pattern is nonspecific. A punctate calcifications o verlying bilateral kidneys. Estimated approximately 5 on the left and 3 on the right. Overlying bowel content does limit assessment. No suspicious calcifications in the pelvis. Suggestion of possible molina rgical sutures in the pelvis. Arthropathy of the hips. Degenerative change of the spine. IMPRESSION: 1. Bilateral nephrolithiasis. Similar to the prior exam.
== END | disposition home or self-care (01) ==
LOC: RADXRMAIN 08:32
PROVIDERS: ATTEND Urology
DX: N20.0 Calculus of kidney (principal)
CPT/HCPCS: 74018

== ENCOUNTER → 2021-04-14 | Outpatient (CLI) | payer MEDICARE, BC ==
[2021-04-14 10:00] LABS: HCT 37.9 % (34.0-46.0); MCH 32.6 pg (25.0-35.0); MCHC 34.4 g/dL (31.0-37.0); MCV 94.7 fL (80.0-100.0); Mean Platelet Volume 8.8; Platelet Count 205 k/uL (150-450); RDW 12.4 % (11.5-15.5)
== END | disposition home or self-care (01) ==
LOC: LABPAT 08:44
PROVIDERS: ATTEND Internal Medicine Gastroenterology
DX: Z01.812 Encounter for preprocedural laboratory examination (principal)
CPT/HCPCS: 85027

== ENCOUNTER → 2021-04-15 | Day surgery (SDC) | payer MEDICARE, BC ==
[2021-04-13 15:37] VITALS: BMI 29.7
[~2021-04-15] MED LIST changes: +ACETAMINOPHEN TAB 500 MG TAB PO STA; +DEXAMETHASONE SOD PHOSPHATE 4 MG/ML 1 ML VIAL IV ONE; +GABAPENTIN 300 MG CAP PO STA; +GLYCOPYRROLATE 0.2 MG/ML 2 ML VIAL ONE; +HEPARIN SODIUM,PORCINE/PF 5,000 UNIT/0.5 ML SYRINGE SQ PRN; +INDOCYANINE GREEN 25 MG VIAL IV ONE; +INDOCYANINE GREEN 25 MG VIAL IV STA; +LACTATED RINGERS 1,000 ML IV ONE; +LIDOCAINE 1% (10MG/ML) FOR IV START INTRADERMA ONE; +LIDOCAINE 1% INJ 10MG/ML (20 ML MDV) ONE; +LIDOCAINE 1%-EPI 1:100,000 20 ML VIAL SQ ONE; +MELOXICAM 7.5 MG TAB PO SCH; +MIDAZOLAM 2 MG/2 ML VIAL IV PRN; +MIDAZOLAM 2 MG/2 ML VIAL ONE; +NEOSTIGMINE 1 MG/ML 10 ML VIAL ONE; +ONDANSETRON 4 MG/2 ML VIAL IVP ONE; +PROPOFOL 10 MG/ML 20 ML VIAL IV ONE; +ROCURONIUM 10 MG/ML (5 ML VIAL) IV ONE; +SCOPOLAMINE 1.5MG/72HR PATCH TRANSDERM ONE; +SUCCINYLCHOLINE CHLORIDE 100 MG/5 ML SYR IV ONE; +SUGAMMADEX SODIUM 500 MG/5 ML SDV IV ONE; +fentaNYL (PF) 50 MCG/ML 2 ML AMP IV PRN; +fentaNYL (PF) 50 MCG/ML 2 ML AMP ONE
--- NOTE | 2021-04-15 07:37 | P.GSHP ---
History of Present Illness H&P Date: 04/15/21 CHIEF COMPLAINT: Cholecystitis HISTORY OF PRESENT ILLNESS: The patient is a 66-year-old female who presents with history of epigastric including right upper quadrant abdominal pain. She underwent diagnostic studies for her gallbladder. Separately her clinical picture was consistent with cholecystitis. Now she presents for surgical intervention. PAST MEDICAL HISTORY: Please see list PAST SURGICAL HISTORY: Please see list MEDICATIONS: Please see list ALLERGIES: Please see list SOCIAL HISTORY: Please see list FAMILY HISTORY: Please see list REVIEW OF ORGAN SYSTEMS: CONSTITUTIONAL: No reports of fevers or chills. HEENT: Denies any troubles with the vision or hearing. ENDOCRINE: No reports of hypothyroidism. No diabetes. RESPIRATORY: No recent pneumonias. Has chronic obstructive pulmonary disease CARDIOVASCULAR: Denies chest pain or palpitations. Has hypertensive heart disease GI: No blood in stools or constipation. Has gastroesophageal reflux disease MUSCULOSKELETAL: Has occasional joint pain including back pain. NEURO: No seizure disorders or headaches. No recent stroke. PSYCH: No depression or suicidal ideation. GENITOURINARY: No active blood in urine. No urinary hesitancy. HEMATOLOGIC: No personal or family history of DVTs or pulmonary emboli. SKIN: No skin cancer. PHYSICAL EXAM: VITAL SIGNS: Afebrile vital signs stable GENERAL: Well-developed pleasant in no acute distress. HEENT: No scleral icterus. Extraocular movements grossly intact. Moist buccal mucosa. NECK: Supple without lymphadenopathy. CHEST: Unlabored respirations. Equal bilateral excursions. CARDIOVASCULAR: Regular rate regular rhythm rhythm. Distal 2+ pulses. ABDOMEN: Soft, nondistended. Tender along the epigastrium and right upper quadrant. MUSCULOSKELETAL: No clubbing, cyanosis, or edema. NEURO: Cranial nerves II to XII within normal limits. No focal or lateralizing signs. PSYCH: Alert and oriented to person, place and time. SKIN: Well-perfused good skin turgor. ASSESSMENT: 1. Epigastric and right upper quadrant abdominal pain 2. Chronic cholecystitis 3. Symptomatic gallstones. PLAN: 1. Will need a robotic cholecystectomy possible open. Benefits and risks were described. 2. Heparin for DVT prophylaxis 5000 units. 3. Antibiotic prophylaxis. 4. She is elevated risk due to chronic obstructive pulmonary disease and hypertensive heart disease Past Medical History Past Medical History: COPD, Eye Disorder, GERD/Reflux, Hyperlipidemia, Hypertension, Osteoarthritis (OA) Additional Past Medical History / Comment(s): Ulcerative colitis, diverticulitis, benign colon polyps, nephrolithiasis, starting of bilateral cataracts, L leg varicosity, seasonal allergies. History of Any Multi-Drug Resistant Organisms: None Reported Past Surgical History: Adenoidectomy, Bowel Resection, Hysterectomy, Orthopedic Surgery, Tonsillectomy Additional Past Surgical History / Comment(s): lithotripsies,colonoscopy with polypectomy,rt knee arthroscopy Past Anesthesia/Blood Transfusion Reactions: Postoperative Nausea & Vomiting (PONV) Smoking Status: Former smoker - Past Family History Mother Family Medical History: Cancer Additional Family Medical History / Comment(s): Pt believes her mother had throat cancer. Father Family Medical History: Myocardial Infarction ([place]) Additional Family Medical History / Comment(s): Father at the age of 83 yrs from a [place] Medications and Allergies Home Medications Medication Instructions Recorded Confirmed Type Atorvastatin [Lipitor] 20 mg PO HS 05/11/16 04/13/21 History Cetirizine HCl [Zyrtec] 10 mg PO DAILY PRN 05/11/16 04/13/21 History Montelukast [Singulair] 10 mg PO HS 03/12/19 04/13/21 History Fluticasone Nasal [place] [Flonase 1 spr EA NOSTRIL DAILY PRN 04/18/20 04/13/21 History Nasal [place]] Hydrocodone/Acetaminophen [[place] 1 tab PO Q6H PRN 04/18/20 04/13/21 History 5-325] Metoprolol Succinate [Toprol XL] 25 mg PO HS 04/18/20 04/13/21 History Ramipril 10 mg PO BID 04/18/20 04/13/21 History amLODIPine [Norvasc] 5 mg PO QAM 04/18/20 04/13/21 History Balsalazide Disodium 2,250 mg PO BID 03/09/21 04/13/21 History Cholecalciferol [Vitamin D3 (25 50 mcg PO DAILY 03/09/21 04/13/21 History Mcg = 1000 Iu)] Omeprazole 20 mg PO DAILY PRN 03/09/21 04/13/21 History Allergies Allergy/AdvReac Type Severity Reaction Status Date / Time ciprofloxacin [From Cipro] Allergy Unknown Verified 04/13/21 15:26 metronidazole [From Flagyl] Allergy Rash/Hives Verified 04/13/21 15:26 morphine AdvReac Nausea & Verified 04/13/21 15:26 Vomiting sulfamethoxazole AdvReac Rash/Hives Verified 04/13/21 15:26 [From Bactrim] trimethoprim [From Bactrim] AdvReac Rash/Hives Verified 04/13/21 15:26
[2021-04-15 08:28] VITALS: RESP 16
[2021-04-15 09:16] LABS: African American GFR (CKD) >90 (>60 ml/min/1.73 sqM); Anion Gap 8 mmol/L; Blood Urea Nitrogen 23 mg/dL (7-17); Calcium 9.1 mg/dL (8.4-10.2); Carbon Dioxide 24 mmol/L (22-30); Chloride 108 mmol/L (98-107); Glucose 113 mg/dL (74-99); Non-African American GFR(CKD) >90 (>60 ml/min/1.73 sqM); Sodium 140 mmol/L (137-145)
[2021-04-15 11:33] VITALS: TEMP 97.9
--- NOTE | 2021-04-15 11:36 | P.OP ---
Date of Procedure: 04/15/21 Description of Procedure: SURGEON: ANIA PARKER MD PREOPERATIVE DIAGNOSES: 1. Symptomatic gallstone 2. Right upper quadrant abdominal pain POSTOPERATIVE DIAGNOSES: 1. Symptomatic gallstone 2. Right upper quadrant abdominal pain 3. Chronic cholecystitis 4. Peritoneal adhesions, right upper quadrant OPERATION: Robotic-assisted da Jose Luis Xi laparoscopic cholecystectomy, multiport with FIREFLY ESTIMATED BLOOD LOSS: 5 mL. SPECIMENS REMOVED: Gallbladder. COMPLICATIONS: None. OPERATIVE FINDINGS: 1. Moderate scarring over infundibulum of the gallbladder with peritoneal adhesions, pericholecystic with features of chronic cholecystitis 2. Residual pelvic dye from colon tattoo INDICATIONS: The patient is a 66-year-old female who presents with symptomatic gallstones. Robotic assisted laparoscopic approach was described. Benefits and risks of the procedure including but not limited to bleeding, infection, injury to the biliary tree was described. Informed consent was obtained. DESCRIPTION OF PROCEDURE: Patient was brought to the operating room, placed in supine position. After general induction, the abdomen had been prepped and draped in standard sterile fashion. The robotic da Jose Luis XI system was primed. After a timeout protocol was performed, the patient had been prepped and draped in standard sterile fashion. The patient was injected with indocyanine green. A 5 mm 0 degrees laparoscopic trocar entry was performed along the left upper quadrant. The abdomen insufflated to 15 mmHg pressure which was tolerated well. Diagnostic laparoscopy demonstrated no injury to bowel viscera or mesentery. The liver surface was unremarkable. Next, two 8 mm robotic ports were placed along the right upper abdomen. The camera 8-mm port was maintained along the epigastrium. Another 8 mm port was placed along the left upper abdominal wall after exchanging the 5 mm port. Please note that the ports were placed at least 10 to 15 cm away from the target anatomy of the gallbladder. The robot was docked along the left lateral abdomen. The patient was repositioned in reverse Trendelenburg position. Using a grasper for arm 3, a grasper for arm 4, including hook cautery for arm 1, the robotic system was docked and primed as described. Instruments were interchanged by the speech correction assistant including hook cautery, Bovie cautery and clip appliers. I had sat at the console. The gallbladder was scarred with peritoneal adhesions. Lysis of adhesions was p erformed to free the gallbladder from the surrounding tissues. Next attention was brought to the infundibulum and cystic structures. The infundibulum and cystic duct were dissected free from surrounding tissues. The cystic duct was isolated. FIREFLY was used to identify the cystic artery and cystic structures. A critical view of safety was obtained. Large PLASTIC clips were used throughout the entire case. Using a clip general accountant, 2 clips were placed at the junction of the infundibulum and cystic duct. The cystic duct was divided between clips. Next, the cystic artery was similarly clipped and cauterized. Electro-Bovie cautery was used to remove the gallbladder from the hepatic fossa. Hemostasis was checked and found to be adequate. The robot was undocked. I re-scrubbed into the case. Using a 10 mm Endo Catch bag via the left upper quadrant incision, the specimen was removed from the abdominal cavity. All pneumoperitoneum instruments were evacuated from the abdominal cavity. The incisions were reapproximated using 4-0 Monocryl in an interrupted subcuticular fashion. Fascial defects were less than 8 mm in size. Please note along the trocar sites, local anesthetic was placed as a field block prior to insertion of all instruments. Liquid glue was applied to the skin. At the end of the procedure needle, sponge, and instrument count had been verified correct by the surgical elastic knitter hand frame. The patient was transferred to postanesthesia care unit in stable condition. Intraoperative films were shared with the patient's family. Plan - Discharge Summary Discharge Rx Participant: No New Discharge Prescriptions: New Acetaminophen Tab [Tylenol Tab] 1,000 mg PO Q6HR PRN #30 tablet PRN Reason: Pain Simethicone [Gas-X] 125 mg PO AC-TID PRN #20 cap PRN Reason: Pain Continue Atorvastatin [Lipitor] 20 mg PO HS Cetirizine HCl [Zyrtec] 10 mg PO DAILY PRN PRN Reason: allergies Montelukast [Singulair] 10 mg PO HS Fluticasone Nasal [place] [Flonase Nasal [place]] 1 spr EA NOSTRIL DAILY PRN PRN Reason: allergies amLODIPine [Norvasc] 5 mg PO QAM Ramipril 10 mg PO BID Metoprolol Succinate [Toprol XL] 25 mg PO HS Hydrocodone/Acetaminophen [[place] 5-325] 1 tab PO Q6H PRN PRN Reason: Pain Balsalazide Disodium 2,250 mg PO BID Cholecalciferol [Vitamin D3 (25 Mcg = 1000 Iu)] 50 mcg PO DAILY Omeprazole 20 mg PO DAILY PRN PRN Reason: Heartburn Discharge Medication List Atorvastatin [Lipitor] 20 mg PO HS 05/11/16 [History] Cetirizine HCl [Zyrtec] 10 mg PO DAILY PRN 05/11/16 [History] Montelukast [Singulair] 10 mg PO HS 03/12/19 [History] Fluticasone Nasal [place] [Flonase Nasal [place]] 1 spr EA NOSTRIL DAILY PRN 04/18/20 [History] Hydrocodone/Acetaminophen [[place] 5-325] 1 tab PO Q6H PRN 04/18/20 [History] Metoprolol Succinate [Toprol XL] 25 mg PO HS 04/18/20 [History] Ramipril 10 mg PO BID 04/18/20 [History] amLODIPine [Norvasc] 5 mg PO QAM 04/18/20 [History] Balsalazide Disodium 2,250 mg PO BID 03/09/21 [History] Cholecalciferol [Vitamin D3 (25 Mcg = 1000 Iu)] 50 mcg PO DAILY 03/09/21 [History] Omeprazole 20 mg PO DAILY PRN 03/09/21 [History] Acetaminophen Tab [Tylenol Tab] 1,000 mg PO Q6HR PRN #30 tablet 04/15/21 [Rx] Simethicone [Gas-X] 125 mg PO AC-TID PRN #20 cap 04/15/21 [Rx] Follow up Appointment(s)/Referral(s): Ania Parker MD [STAFF PHYSICIAN] - 04/19/21 Patient Instructions/Handouts: *Surgery [facility] - Scopalamine Patch Instructions Activity/Diet/Wound Care/Special Instructions: Recommend low-fat diet for the next 2 days. No lifting over 10 pounds in 2 weeks until April 29. October shower. No bath tub soaks for two weeks until April 29 Diet as tolerated. Use Tylenol, simethicone and ibuprofen or Aleve scheduled for the next 24-48 hours for best pain relief. Use ice along incisions for today to prevent swelling. Discharge Disposition: HOME SELF-CARE
[2021-04-15 12:03] VITALS: BP 142/62; PULSE 85
== END | disposition home or self-care (01) ==
LOC: OR 07:50
PROVIDERS: ATTEND Surgery Plastic and Reconstructive Surgery
DX: K81.1 Chronic cholecystitis (principal); I10 Essential (primary) hypertension; E78.5 Hyperlipidemia, unspecified; J44.9 Chronic obstructive pulmonary disease, unspecified; K21.9 Gastro-esophageal reflux disease without esophagitis; Z87.442 Personal history of urinary calculi
CPT/HCPCS: 47562; 88304; 80048; J2250; J1100; J2710; J0690; J2405; J2001; J3010; J0330; J2704; J1644

== ENCOUNTER → 2021-05-04 | Outpatient (CLI) | payer MEDICARE, BC ==
--- NOTE | 2021-05-05 10:43 | MM ---
Reason for exam: screening (asymptomatic). Last mammogram was performed 1 year and 10 months ago. Physical Findings: A clinical breast exam by your physician is recommended on an annual basis and results should be correlated with mammographic findings. MG 3D Screening Mammo W/Cad Bilateral CC and MLO view(s) were taken. Prior study comparison: July 18, 2019, bilateral MG 3d screening mammo w/cad. May 28, 2018, bilateral MG 3d screening mammo w/cad. The breast tissue is heterogeneously dense. This may lower the sensitivity of mammography. There are benign appearing linear calcifications in the right breast. There is chronic nodularity in the left breast. There is no discrete abnormality. ASSESSMENT: Benign, BI-RAD 2 RECOMMENDATION: Routine screening mammogram of both breasts in 1 year.
--- NOTE | 2021-05-05 16:21 | BD ---
EXAMINATION TYPE: Axial Bone Density DATE OF EXAM: 05/04/2021 COMPARISON: 2005 CLINICAL HISTORY: Postmenopausal screening Height: 66 Weight: 188.9 FRAX RISK QUESTIONS: Alcohol (3 or more units per day): no Family History (Parent hip fracture): no Glucocorticoids (More than 3mos): no (Ex: prednisone, prednisolone, methylprednisolone, dexamethasone, and hydrocortisone). History of Fracture in Adulthood: yes Secondary Osteoporosis: 1. Type 1 Diabetes: no 2. Hyperthyroidism: no 3. Menopause before 45: no 4. Malnutrition: no 5. Chronic liver disease: no Rheumatoid Arthritis: no Current Tobacco Use: no RISK FACTORS HISTORY OF: Surgery to Spine/Hip(right/left)/Wrist (right/left): no Family History of Osteoporosis: yes Active: yes Diet low in dairy products/other sources of calcium: yes Postmenopausal woman: yes Lost more than 2 inches in height since high school: no MEDICATIONS: atorvastatin, colitis meds, allergy meds, Prilosec as needed Additional History: EXAM MEASUREMENTS: Bone mineral densitometry was performed using the [employer]. Bone mineral density as measured about the Lumbar spine is: ----- L1-L4(G/cm2): 0.993 T Score Values are as follows: ----- L2: -1.2 ----- L3: -1.8 ----- L4: -2.3 ----- L1-L4: -1.6 Bone mineral density has: decreased -7.2 % since study of: 11.16.2005 Bone mineral density about the R hip (g/cm2): 0.772 Bone mineral density about the L hip (g/cm2): 0.773 T Score values are as follows: -----R Neck: -1.9 -----L Neck: -1.9 -----R Total: -1.2 -----L Total: -1.3 Bone mineral density has: decreased -6.1 % since study of: 11.16.2005 IMPRESSION: Osteopenia (T Score between -2.5 and -1). There is slightly increased risk of fracture and the patient may be considered for treatment. Re-Screen 2-5 years. NOTE: T-SCORE=SD OF THE YOUNG ADULT MEAN.
== END | disposition home or self-care (01) ==
LOC: RADBDWWP 08:32
PROVIDERS: ATTEND Family Medicine
DX: Z12.31 Encounter for screening mammogram for malignant neoplasm of breast (principal); Z13.820 Encounter for screening for osteoporosis; M85.89 Other specified disorders of bone density and structure, multiple sites; Z78.0 Asymptomatic menopausal state
CPT/HCPCS: 77063; 77067; 77080

== ENCOUNTER → 2021-06-02 | Outpatient (CLI) | payer MEDICARE, BC ==
[2021-06-02 17:46] LABS: ALT 20 U/L (8-44); AST 18 U/L (13-35); African American GFR (CKD) 99.4 (60.0-200.0); Albumin 4.5 g/dL (3.8-4.9); Albumin/Globulin Ratio 2.48 (1.60-3.17); Alkaline Phosphatase 80 U/L (41-126); BUN/Creat Ratio 27.96 Ratio (12.00-20.00); Blood Urea Nitrogen 20.3 mg/dL (9.0-27.0); Calcium 9.1 mg/dL (8.7-10.3); Carbon Dioxide 23.9 mmol/L (20.0-27.5); Chloride 105 mmol/L (96-109); Chol/HDL Ratio 3.32 Ratio; Globulin 1.8 g/dL (1.6-3.3); Glucose 102 mg/dL (70-110); LDL Cholesterol,Calculated 117.6 mg/dL (0.0-131.0); Non-African American GFR(CKD) 85.8 (60.0-200.0); Potassium 4.5 mmol/L (3.5-5.5); Sodium 143 mmol/L (135-145); Total Protein 6.4 g/dL (6.2-8.2)
== END | disposition home or self-care (01) ==
LOC: LABWHC1 07:53
PROVIDERS: ATTEND Family Medicine
DX: I10 Essential (primary) hypertension (principal); E78.00 Pure hypercholesterolemia, unspecified; R73.9 Hyperglycemia, unspecified
CPT/HCPCS: 36415; 80053; 80061; 83036

== ENCOUNTER → 2021-09-30 | Outpatient (CLI) | payer MEDICARE ==
[2021-09-30 14:49] LABS: HCT 39.3 % (37.2-46.3); HGB 12.5 g/dL (12.0-15.0); MCHC 31.8 g/dL (32.0-37.0); MCV 97.5 fL (80.0-97.0); NRBC Per 100 WBC 0 /100 WBCS (0.0-0.0); Platelet Count 224 X 10*3/uL (140-440); RBC 4.03 X 10*6/uL (4.10-5.20); WBC 4.84 X 10*3/uL (4.50-10.00)
[2021-09-30 14:53] LABS: ALT 11 U/L (8-44); AST 18 U/L (13-35); African American GFR (CKD) 82.3 (60.0-200.0); Albumin 4.4 g/dL (3.8-4.9); Alkaline Phosphatase 63 U/L (41-126); BUN/Creat Ratio 20.02 Ratio (12.00-20.00); C Reactive Protein <0.30 mg/dL (0.00-0.80); Calcium 8.9 mg/dL (8.7-10.3); Carbon Dioxide 25.3 mmol/L (20.0-27.5); Chloride 106 mmol/L (96-109); Globulin 2.2 g/dL (1.6-3.3); Glucose 108 mg/dL (70-110); Potassium 4.5 mmol/L (3.5-5.5); Sodium 142 mmol/L (135-145); Total Protein 6.6 g/dL (6.2-8.2)
[2021-09-30 16:37] LABS: Erythrocyte Sedimentation Rate 1 mm/Hr (0-30)
== END | disposition home or self-care (01) ==
LOC: LABWHC1 07:52
PROVIDERS: ATTEND Nurse Practitioner Family
DX: K58.9 Irritable bowel syndrome, unspecified (principal)
CPT/HCPCS: 36415; 80053; 82656; 83993; 85027; 85652; 86140

== ENCOUNTER → 2021-12-08 | Outpatient (CLI) | payer MEDICARE ==
[2021-12-08 11:02] LABS: ALT 17 U/L (8-44); AST 19 U/L (13-35); African American GFR (CKD) 76.7 (60.0-200.0); Albumin 4.5 g/dL (3.8-4.9); Albumin/Globulin Ratio 2.25 (1.60-3.17); Alkaline Phosphatase 70 U/L (41-126); BUN/Creat Ratio 17.78 Ratio (12.00-20.00); Calcium 9.5 mg/dL (8.7-10.3); Carbon Dioxide 28.8 mmol/L (20.0-27.5); Chloride 105 mmol/L (96-109); Glucose 108 mg/dL (70-110); Non-African American GFR(CKD) 66.2 (60.0-200.0); Potassium 4.6 mmol/L (3.5-5.5); Sodium 143 mmol/L (135-145); Total Protein 6.5 g/dL (6.2-8.2)
[2021-12-08 11:03] LABS: Chol/HDL Ratio 3.25 Ratio; LDL Cholesterol,Calculated 108.5 mg/dL (0.0-131.0)
== END | disposition home or self-care (01) ==
LOC: LABWHC1 07:26
PROVIDERS: ATTEND Family Medicine
DX: I10 Essential (primary) hypertension (principal); E78.00 Pure hypercholesterolemia, unspecified; R63.5 Abnormal weight gain
CPT/HCPCS: 36415; 80053; 80061; 84443

== ENCOUNTER → 2022-04-05 | Outpatient (CLI) | payer MEDICARE ==
[2022-04-05 15:38] LABS: Anion Gap 9.7 mmol/L (10.00-18.00); BUN/Creat Ratio 21.4 Ratio (12.00-20.00); Blood Urea Nitrogen 21.4 mg/dL (9.0-27.0); Calcium 9.3 mg/dL (8.7-10.3); Carbon Dioxide 27.3 mmol/L (20.0-27.5); Magnesium 2.1 mg/dL (1.5-2.4); Non-African American GFR(CKD) 57.8 (60.0-200.0); Potassium 5.2 mmol/L (3.5-5.5)
== END | disposition home or self-care (01) ==
LOC: LABWHC1 08:45
PROVIDERS: ATTEND Internal Medicine Interventional Cardiology
DX: I10 Essential (primary) hypertension (principal)
CPT/HCPCS: 36415; 80048; 83735

== ENCOUNTER → 2022-06-08 | Outpatient (CLI) | payer MEDICARE ==
[2022-06-08 15:33] LABS: ALT 17 U/L (8-44); AST 20 U/L (13-35); African American GFR (CKD) 76.1 (60.0-200.0); Albumin 4.5 g/dL (3.8-4.9); Albumin/Globulin Ratio 2.37 (1.60-3.17); Alkaline Phosphatase 86 U/L (41-126); BUN/Creat Ratio 21.11 Ratio (12.00-20.00); Calcium 9.5 mg/dL (8.7-10.3); Carbon Dioxide 28.1 mmol/L (20.0-27.5); Chloride 106 mmol/L (96-109); Chol/HDL Ratio 2.91 Ratio; Globulin 1.9 g/dL (1.6-3.3); Glucose 102 mg/dL (70-110); LDL Cholesterol,Calculated 111.9 mg/dL (0.0-131.0); Non-African American GFR(CKD) 65.7 (60.0-200.0); Sodium 144 mmol/L (135-145); Total Protein 6.4 g/dL (6.2-8.2); VLDL Calculation 16.18 mg/dL (5.00-40.00)
== END | disposition home or self-care (01) ==
LOC: LABWHC1 08:00
PROVIDERS: ATTEND Family Medicine
DX: I10 Essential (primary) hypertension (principal); E78.00 Pure hypercholesterolemia, unspecified
CPT/HCPCS: 36415; 80053; 80061

== ENCOUNTER → 2022-06-28 | Outpatient (CLI) | payer MEDICARE ==
--- NOTE | 2022-06-29 16:44 | MM ---
Reason for Exam: Screening (asymptomatic). Last mammogram was performed 1 year(s) and 1 month(s) ago. Patient History: Menarche at age 9. First Full-Term at age 16. Hysterectomy at age 36. Risk Values: [place] 5 year model risk: 1.4%. NCI Lifetime model risk: 4.4%. Prior Study Comparison: 05/28/2018 Bilateral Screening Mammogram, [facility]. 07/18/2019 Bilateral Screening Mammogram, [facility]. 05/04/2021 Bilateral Screening Mammogram, [facility]. Tissue Density: The breast tissue is heterogeneously dense. This may lower the sensitivity of mammography. Findings: Analyzed By CAD. Some scattered benign calcifications are present. No suspicious groups of microcalcifications, spiculated or lobular masses, architectural distortion or other secondary signs of malignancy are mammographically apparent. Overall Assessment: Benign, BI-RAD 2 Management: Screening Mammogram of both breasts in 1 year. A negative mammogram report should not preclude additional follow up of suspicious palpable abnormalities. Patient should continue monthly self breast exam. A clinical breast exam by your physician is recommended on an annual basis and results should be correlated with mammographic findings. Electronically signed and approved by: Alex Schaeffer D.O. Radiologis
== END | disposition home or self-care (01) ==
LOC: RADMAMWWP 16:03
PROVIDERS: ATTEND Family Medicine
DX: Z12.31 Encounter for screening mammogram for malignant neoplasm of breast (principal)
CPT/HCPCS: 77063; 77067

== ENCOUNTER 2022-09-30 09:18 | Emergency (ER) | payer MEDICARE ==
[2022-09-30 09:22] VITALS: TEMP 97.8
[2022-09-30 10:01] LABS: Appearance,Urine Cloudy (Clear); Bacteria,Urine Occasional /hpf; Bilirubin,Urine Negative (Negative); Blood,Urine Moderate (Negative); Color,Urine Yellow; Glucose,Urine (UA) Negative (Negative); Ketones,Urine Negative (Negative); Leukocyte Esterase,Urine Large (Negative); Nitrite,Urine Negative (Negative); Protein,Urine 1+ (Negative); RBC,Urine 5 /hpf (0-5); Specific Gravity,Urine 1.011 (1.001-1.035); Squamous Epithelial Cell,Urine 1 /hpf (0-4); Urobilinogen,Urine <2.0 mg/dL (<2.0); WBC,Urine >182 /hpf (0-5)
[2022-09-30] MEDS ORDERED: KETOROLAC 15 MG/ML 1 ML VIAL IM STA (10:17)
[2022-09-30] MEDS ORDERED: cefTRIAXone 1,000 MG VIAL (IM USE) IM STA (10:17)
[2022-09-30] MEDS ORDERED: PHENAZOPYRIDINE 200 MG TAB PO STA (10:19)
--- NOTE | 2022-09-30 10:42 | ED ---
Female Urogenital HPI - General Chief complaint: Urogenital Stated complaint: UTI Time Seen by Provider: 09/30/22 09:23 Source: patient, RN notes reviewed Mode of arrival: ambulatory Limitations: no limitations - History of Present Illness Initial comments: 67-year-old female presents emergency from chief complaint UTI. Patient states symptoms started on Sunday. Patient states she has any frequency, dysuria and lower abdominal pain. Patient states she took some Azo [id number] couple days ago. Patient denies any flank pain no reported fever. - Related Data Home Medications Medication Instructions Recorded Confirmed Atorvastatin [Lipitor] 20 mg PO HS 05/11/16 11/10/21 Montelukast [Singulair] 10 mg PO HS 03/12/19 11/10/21 Fluticasone Nasal [place] [Flonase 1 spr EA NOSTRIL DAILY PRN 04/18/20 11/10/21 Nasal [place]] Hydrocodone/Acetaminophen [[place] 1 tab PO Q6H PRN 04/18/20 11/10/21 5-325] Metoprolol Succinate [Toprol XL] 25 mg PO HS 04/18/20 11/10/21 amLODIPine [Norvasc] 5 mg PO QAM 04/18/20 11/10/21 ramipriL [Ramipril] 10 mg PO BID 04/18/20 11/10/21 Balsalazide Disodium 2,250 mg PO BID 03/09/21 11/10/21 Cholecalciferol [Vitamin D3 (25 50 mcg PO DAILY 03/09/21 11/10/21 Mcg = 1000 Iu)] Omeprazole 20 mg PO DAILY PRN 03/09/21 11/10/21 Albuterol Inhaler [Ventolin Hfa 1 puff INHALATION DIRECTED PRN 11/10/21 11/10/21 Inhaler] Dicyclomine [Bentyl] 20 mg PO TID PRN 11/10/21 11/10/21 Fexofenadine HCl [Marybeth Allergy] 180 mg PO DAILY 11/10/21 11/10/21 Multivitamins, Thera [Multivitamin 1 tab PO Q2D 11/10/21 11/10/21 (formulary)] Ondansetron [Zofran] 4 mg PO Q8HR PRN 11/10/21 11/10/21 Previous Rx's Medication Instructions Recorded Acetaminophen Tab [Tylenol Tab] 1,000 mg PO Q6HR PRN #30 tablet 04/15/21 Ciprofloxacin HCl [Cipro] 500 mg PO Q12HR #20 tablet 09/30/22 Phenazopyridine [Pyridium] 200 mg PO TID #6 tablet 09/30/22 Allergies Allergy/AdvReac Type Severity Reaction Status Date / Time nitrofurantoin Allergy Rash/Hives Verified 09/30/22 09:23 [From Macrobid] morphine AdvReac Nausea & Verified 09/30/22 09:23 Vomiting sulfamethoxazole AdvReac Rash/Hives Verified 09/30/22 09:23 [From Bactrim] trimethoprim [From Bactrim] AdvReac Rash/Hives Verified 09/30/22 09:23 Review of Systems ROS Statement: Those systems with pertinent positive or pertinent negative responses have been documented in the HPI. ROS Other: All systems not noted in ROS Statement are negative. Past Medical History Past Medical History: COPD, Eye Disorder, GERD/Reflux, Hyperlipidemia, Hypertension, Osteoarthritis (OA) Additional Past Medical History / Comment(s): Ulcerative colitis, diverticulitis, benign colon polyps, nephrolithiasis, varicose vein, History of Any Multi-Drug Resistant Organisms: None Reported Past Surgical History: Adenoidectomy, Bowel Resection, Cholecystectomy, Hysterectomy, Orthopedic Surgery, Tonsillectomy Additional Past Surgical History / Comment(s): lithotripsies,colonoscopy,rt knee arthroscopy Past Anesthesia/Blood Transfusion Reactions: Motion Sickness, Postoperative Nausea & Vomiting (PONV) Past Psychological History: No Psychological Hx Reported Smoking Status: Former smoker - Past Family History Mother Family Medical History: Cancer Additional Family Medical History / Comment(s): . Father Family Medical History: Myocardial Infarction ([place]) Additional Family Medical History / Comment(s): Father at the age of 83 yrs from a [place] General Exam Limitations: no limitations General appearance: alert, in no apparent distress Head exam: Present: atraumatic, normocephalic, normal inspection Respiratory exam: Present: normal lung sounds bilaterally. Absent: respiratory distress, wheezes, rales, rhonchi, stridor Cardiovascular Exam: Present: regular rate, normal rhythm, normal heart sounds. Absent: systolic murmur, diastolic murmur, rubs, gallop, clicks GI/Abdominal exam: Present: soft, tenderness, normal bowel sounds. Absent: distended, guarding, rebound, rigid Course Vital Signs 09/30/22 09/30/22 09:19 10:44 Temperature 97.8 F Pulse Rate 105 H 94 Respiratory 19 16 Rate Blood Pressure 86/60 133/65 O2 Sat by Pulse 98 97 Oximetry Medical Decision Making - Medical Decision Making Was pt. sent in by a medical professional or institution (, [facility], ASSAULT AMPHIBIOUS VEHICLE OFFICER, urgent care, hospital, or retirement...) When possible be specific @ -No Did you speak to anyone other than the patient for history (EMS, parent, family, police, friend...)? What history was obtained from this source @ -No Did you review nursing and triage notes (agree or disagree)? Why? @ -I reviewed and agree with nursing and triage notes Were old charts reviewed (outside hosp., previous admission, EMS record, old EKG, old radiological studies, urgent care reports/EKG's, retirement records)? Report findings @ -No old charts were reviewed Differential Diagnosis (chest pain, altered mental status, abdominal pain women, abdominal pain men, vaginal bleeding, weakness, fever, dyspnea, syncope, headache, dizziness, GI bleed, back pain, seizure, CVA, palpatations, mental health, musculoskeletal)? @ -[Differential Abdominal Pain Women: Appendicitis, Cholecystitis, diverticulosis, ischemic bowel, pancreatitis, hepatitis, UTI, gastroenteritis, AAA, incarcerated hernia, bowel obstruction, constipation, inflammatory bowel, hepatitis, peptic ulcer disease, splenic infarction, perforated viscus, vulvitis, ovarian torsion, PID, kidney stone, placenta abruption, this is not meant to be an all-inclusive list: EKG interpreted by me (3pts min.). @ -None X-rays interpreted by me (1pt min.). @ -None done CT interpreted by me (1pt min.). @ -None done U/S interpreted by me (1pt. min.). @ -None done What testing was considered but not performed or refused? (CT, X-rays, U/S, labs)? Why? @ -Considered labs slow patient vitals are stable patient has no sensory or sent declined What meds were considered but not given or refused? Why? @ -None Did you discuss the management of the patient with other professionals (professionals i.e. Dr., PA, ASSAULT AMPHIBIOUS VEHICLE OFFICER, lab, RT, psych nurse, licensed social worker, clinical audiologist, teacher, protection officer, ed case manager)? Give summary @ -No Was smoking cessation discussed for >3mins.? @ -No Was critical care preformed (if so, how long)? @ -No Were there social determinants of health that impacted care today? How? (Homelessness, low income, unemployed, alcoholism, drug addiction, transpor tation, low edu. Level, literacy, decrease access to med. care, penitentiary, rehab)? @ -No Was there de-escalation of care discussed even if they declined (Discuss DNR or withdrawal of care, Hospice)? DNR status @ -No What co-morbidities impacted this encounter? (DM, HTN, Smoking, COPD, CAD, Cancer, CVA, ARF, Chemo, Hep., AIDS, mental health diagnosis, sleep apnea, morbid obesity)? @ -None Was patient admitted / discharged? Hospital course, mention meds given and route, prescriptions, significant lab abnormalities, going to OR and other pertinent info. @ -Discharge patient has evidence UTI patient given Rocephin, discharged on ciprofloxacin as patient requested he is had some issues with other antibiotics. Patient denies return for any worsening changes symptoms. Undiagnosed new problem with uncertain prognosis? @ -No Drug Therapy requiring intensive monitoring for toxicity (Heparin, Nitro, Insulin, Cardizem)? @ -No Were any procedures done? @ -No Diagnosis/symptom? @ -UTI Acute, or Chronic, or Acute on Chronic? @ -Acute Uncomplicated (without systemic symptoms) or Complicated (systemic symptoms)? @ -Uncomplicated Side effects of treatment? @ -No Exacerbation, Progression, or Severe Exacerbation? @ -No Poses a threat to life or bodily function? How? (Chest pain, [place], [place], pneumonia, PE, COPD, DKA, ARF, appy, cholecystitis, CVA, Diverticulitis, Homicidal, Suicidal, threat to staff... and all critical care pts) @ -No - Lab Data Lab Results 09/30/22 Range/Units 09:41 Urine Color Yellow Urine Appearance Cloudy H (Clear) Urine pH 6.0 (5.0-8.0) Ur Specific [place] 1.011 (1.001-1.035) Urine Protein 1+ H (Negative) Urine Glucose (UA) Negative (Negative) Urine Ketones Negative (Negative) Urine Blood Moderate H (Negative) Urine Nitrite Negative (Negative) Urine Bilirubin Negative (Negative) Urine Urobilinogen <2.0 (<2.0) mg/dL Ur Leukocyte Esterase Large H (Negative) Urine RBC 5 (0-5) /hpf Urine WBC >182 H (0-5) /hpf Urine WBC Clumps Many H (None) /hpf Ur Squamous Epith Cells 1 (0-4) /hpf Urine Bacteria Occasional H (None) /hpf Disposition Clinical Impression: UTI (urinary tract infection) Disposition: HOME SELF-CARE Condition: Stable Instructions (If sedation given, give patient instructions): Urinary Tract Infection in Women (ED) Additional Instructions: Please return to the Emergency Department if symptoms worsen or any other concerns. Prescriptions: Ciprofloxacin HCl [Cipro] 500 mg PO Q12HR #20 tablet Phenazopyridine [Pyridium] 200 mg PO TID #6 tablet Is patient prescribed a controlled substance at d/c from ED?: No Referrals: Mandy Garrison MD [Primary Care Provider] - 1-2 days Time of Disposition: 10:38
[2022-09-30 10:46] VITALS: BP 133/65; PULSE 94; RESP 16
== END 2022-09-30 10:46 | disposition home or self-care (01) ==
LOC: EC 09:18
DX: N39.0 Urinary tract infection, site not specified (principal); I10 Essential (primary) hypertension; E78.5 Hyperlipidemia, unspecified; J44.9 Chronic obstructive pulmonary disease, unspecified; K21.9 Gastro-esophageal reflux disease without esophagitis; M19.90 Unspecified osteoarthritis, unspecified site; Z79.899 Other long term (current) drug therapy; Z87.891 Personal history of nicotine dependence; Z88.1 Allergy status to other antibiotic agents; Z88.2 Allergy status to sulfonamides; Z88.5 Allergy status to narcotic agent; Z90.49 Acquired absence of other specified parts of digestive tract
CPT/HCPCS: 81001; 87086; 99283; 96372 ×2; J0696; J1885; 87077; 87186

== ENCOUNTER 2022-11-11 13:24 | Emergency (ER) | payer MEDICARE ==
[2022-11-11 13:30] VITALS: TEMP 98.2
[2022-11-11 13:52] LABS: HCT 38.5 % (34.0-46.0); HGB 13.1 gm/dL (11.4-16.0); MCH 32.4 pg (25.0-35.0); MCV 95.2 fL (80.0-100.0); Mean Platelet Volume 8.1; Platelet Count 273 k/uL (150-450); RBC 4.04 m/uL (3.80-5.40); RDW 13.4 % (11.5-15.5); WBC 7.5 k/uL (3.8-10.6)
[2022-11-11 14:03] LABS: Albumin 4.2 g/dL (3.5-5.0); Appearance,Urine Clear (Clear); Bacteria,Urine Rare /hpf; Bilirubin,Urine Negative (Negative); Blood,Urine Negative (Negative); Calcium 9.1 mg/dL (8.4-10.2); Color,Urine Light Yellow; Glucose,Urine (UA) Negative (Negative); Ketones,Urine Negative (Negative); Leukocyte Esterase,Urine Trace (Negative); Magnesium 2.2 mg/dL (1.6-2.3); Nitrite,Urine Negative (Negative); Potassium 3.9 mmol/L (3.5-5.1); Protein,Urine Negative (Negative); Specific Gravity,Urine 1.002 (1.001-1.035); Total Bilirubin 0.4 mg/dL (0.2-1.3); Total Protein 6.6 g/dL (6.3-8.2); Urobilinogen,Urine <2.0 mg/dL (<2.0); WBC,Urine 2 /hpf (0-5)
[2022-11-11 14:07] LABS: INR 0.9 (<1.2); Partial Thromboplastin Time 22.8 sec (22.0-30.0); Prothrombin Time 9.6 sec (9.0-12.0)
[2022-11-11 14:32] LABS: Eosinophils # (M) 0.08 k/uL (0-0.7); Lymphocytes # (M) 1.73 k/uL (1.0-4.8); Monocytes # (M) 0.68 k/uL (0-1.0); Neutrophils # (M) 5.03 k/uL (1.3-7.7); Neutrophils % (M) 67 %; Nucleated Red Blood Cells 0 /100 WBC (0-0); RBC Morphology Normal; Total Cells Counted 100
[2022-11-11 14:41] VITALS: RESP 20
[2022-11-11] MEDS ORDERED: SODIUM CHLORIDE 0.9% 500 ML 500 ML IV ONE (14:50)
--- NOTE | 2022-11-11 15:41 | ED ---
Arrhythmia/Palpitations HPI - General Chief Complaint: Arrhythmia/Palpitations Stated Complaint: chest pain Time Seen by Provider: 11/11/22 14:19 Source: patient, RN notes reviewed, old records reviewed Mode of arrival: ambulatory Limitations: no limitations - History of Present Illness Initial Comments: 67-year-old female presents emergency Department chief complaint of palpitations. Patient states no symptoms last few days. Patient states this feels like her heart is racing, pounding at times. She has no history of A. fib states she's had symptoms like this in the past and has seen cardiology in which they adjusted her medications and thought it was from reflux. She has stress test at the end of last year with no acute findings. Patient is closely monitor. She denies any current complaint of chest pain now. She states she initially that she was just sicker had some anxiety issues. She denies any sick family pain or swelling - Related Data Home Medications Medication Instructions Recorded Confirmed Atorvastatin [Lipitor] 20 mg PO HS 05/11/16 11/10/21 Montelukast [Singulair] 10 mg PO HS 03/12/19 11/10/21 Fluticasone Nasal [place] [Flonase 1 spr EA NOSTRIL DAILY PRN 04/18/20 11/10/21 Nasal [place]] Hydrocodone/Acetaminophen [[place] 1 tab PO Q6H PRN 04/18/20 11/10/21 5-325] Metoprolol Succinate [Toprol XL] 25 mg PO HS 04/18/20 11/10/21 amLODIPine [Norvasc] 5 mg PO QAM 04/18/20 11/10/21 ramipriL [Ramipril] 10 mg PO BID 04/18/20 11/10/21 Balsalazide Disodium 2,250 mg PO BID 03/09/21 11/10/21 Cholecalciferol [Vitamin D3 (25 50 mcg PO DAILY 03/09/21 11/10/21 Mcg = 1000 Iu)] Omeprazole 20 mg PO DAILY PRN 03/09/21 11/10/21 Albuterol Inhaler [Ventolin Hfa 1 puff INHALATION DIRECTED PRN 11/10/21 11/10/21 Inhaler] Dicyclomine [Bentyl] 20 mg PO TID PRN 11/10/21 11/10/21 Fexofenadine HCl [Marybeth Allergy] 180 mg PO DAILY 11/10/21 11/10/21 Multivitamins, Thera [Multivitamin 1 tab PO Q2D 11/10/21 11/10/21 (formulary)] Ondansetron [Zofran] 4 mg PO Q8HR PRN 11/10/21 11/10/21 Previous Rx's Medication Instructions Recorded Acetaminophen Tab [Tylenol Tab] 1,000 mg PO Q6HR PRN #30 tablet 04/15/21 Ciprofloxacin HCl [Cipro] 500 mg PO Q12HR #20 tablet 09/30/22 Phenazopyridine [Pyridium] 200 mg PO TID #6 tablet 09/30/22 Cephalexin [Keflex] 500 mg PO BID #14 cap 10/03/22 Allergies Allergy/AdvReac Type Severity Reaction Status Date / Time morphine AdvReac Nausea & Verified 09/30/22 09:23 Vomiting sulfamethoxazole AdvReac Rash/Hives Verified 09/30/22 09:23 [From Bactrim] trimethoprim [From Bactrim] AdvReac Rash/Hives Verified 09/30/22 09:23 Review of Systems ROS Statement: Those systems with pertinent positive or pertinent negative responses have been documented in the HPI. ROS Other: All systems not noted in ROS Statement are negative. Past Medical History Past Medical History: COPD, Eye Disorder, GERD/Reflux, Hyperlipidemia, Hypertens ion, Osteoarthritis (OA) Additional Past Medical History / Comment(s): Ulcerative colitis, diverticulitis, benign colon polyps, nephrolithiasis, varicose vein, History of Any Multi-Drug Resistant Organisms: None Reported Past Surgical History: Adenoidectomy, Bowel Resection, Cholecystectomy, Hysterectomy, Orthopedic Surgery, Tonsillectomy Additional Past Surgical History / Comment(s): lithotripsies,colonoscopy,rt knee arthroscopy Past Anesthesia/Blood Transfusion Reactions: Motion Sickness, Postoperative Nausea & Vomiting (PONV) Past Psychological History: No Psychological Hx Reported Smoking Status: Former smoker Past Alcohol Use History: None Reported Past Drug Use History: None Reported - Past Family History Mother Family Medical History: Cancer Additional Family Medical History / Comment(s): . Father Family Medical History: Myocardial Infarction ([place]) Additional Family Medical History / Comment(s): Father at the age of 83 yrs from a [place] General Exam Limitations: no limitations General appearance: alert, in no apparent distress Head exam: Present: atraumatic, normocephalic, normal inspection Eye exam: Present: normal appearance, PERRL, EOMI. Absent: scleral icterus, conjunctival injection, periorbital swelling ENT exam: Present: normal exam, normal oropharynx, mucous membranes moist Neck exam: Present: normal inspection, full ROM. Absent: tenderness, meningismus, lymphadenopathy Respiratory exam: Present: normal lung sounds bilaterally. Absent: respiratory distress, wheezes, rales, rhonchi, stridor Cardiovascular Exam: Present: normal rhythm, tachycardia, normal heart sounds. Absent: systolic murmur, diastolic murmur, rubs, gallop, clicks GI/Abdominal exam: Present: soft, normal bowel sounds. Absent: distended, tenderness, guarding, rebound, rigid Course Vital Signs 11/11/22 11/11/22 11/11/22 13:27 14:40 15:32 Temperature 98.2 F Pulse Rate 112 H 105 H 106 H Respiratory 18 20 20 Rate Blood Pressure 167/82 141/81 129/82 O2 Sat by Pulse 95 97 Oximetry EKG Findings - EKG Comments: EKG Findings:: EKG performed at 13:36 sinus tachycardia rate of 104 CO 147 QRS 91 QTC is QTC 337/398 there is an inverted T-wave noted 3, nose significant ST elevation or depression noted. - EKG Results: EKG: interpreted by BLAKE Medical Decision Making - Medical Decision Making Was pt. sent in by a medical professional or institution (, [facility], COOLER SERVICE SUPERVISOR, urgent care, hospital, or penitentiary...) When possible be specific @ -No Did you speak to anyone other than the patient for history (EMS, parent, family, police, friend...)? What history was obtained from this source @ -No Did you review nursing and triage notes (agree or disagree)? Why? @ -I reviewed and agree with nursing and triage notes Were old charts reviewed (outside hosp., previous admission, EMS record, old EKG, old radiological studies, urgent care reports/EKG's, penitentiary records)? Report findings @ -Reviewed prior EKG and cardiology visits Differential Diagnosis (chest pain, altered mental status, abdominal pain women, abdominal pain men, vaginal bleeding, weakness, fever, dyspnea, syncope, headache, dizziness, GI bleed, back pain, seizure, CVA, palpatations, mental health, musculoskeletal)? @ -Differential Palpitations Ventricular arrhythmias, atrial arrhythmias, myocardial infarction, anemia, thyrotoxicosis, electrolyte imbalance, hypokalemia, pulmonary embolism, pulmonary disease, drugs, alcohol, anxiety, stress.... This is not meant to be an all-inclusive list.le EKG interpreted by me (3pts min.). @ -As above X-rays interpreted by me (1pt min.). @ -chest x-ray shows no acute process, no evidence of pneumothorax or infiltrate CT interpreted by me (1pt min.). @ -None done U/S interpreted by me (1pt. min.). @ -None done What testing was considered but not performed or refused? (CT, X-rays, U/S, labs)? Why? @ -None What meds were considered but not given or refused? Why? @ -None Did you discuss the management of the patient with other professionals (professionals i.e. , PA, COOLER SERVICE SUPERVISOR, lab, RT, psych nurse, social work manager, slide forming machine operator, teacher, boating safety officer, disability case manager)? Give summary @ -No Was smoking cessation discussed for >3mins.? @ -No Was critical care preformed (if so, how long)? @ -No Were there social determinants of health that impacted care today? How? (Homelessness, low income, unemployed, alcoholism, drug addiction, transportation, low edu. Level, literacy, decrease access to med. care, half-way, r ehab)? @ -No Was there de-escalation of care discussed even if they declined (Discuss DNR or withdrawal of care, Hospice)? DNR status @ -No What co-morbidities impacted this encounter? (DM, HTN, Smoking, COPD, CAD, Cancer, CVA, ARF, Chemo, Hep., AIDS, mental health diagnosis, sleep apnea, morbid obesity)? @ -CAD Was patient admitted / discharged? Hospital course, mention meds given and route, prescriptions, significant lab abnormalities, going to OR and other pertinent info. @ -Discharge patient has mild tachycardia patient is currently on metoprolol 25 mg XL. She has a follow-up appointment on Sunday with dial brusher. Patient's laboratory studies are unremarkable. Patient's had tachycardia in the past. Patient will follow-up for medication adjustment and patient feels comfortable discharge. Patient states she is very anxious which is not helping. Undiagnosed new problem with uncertain prognosis? @ -No Drug Therapy requiring intensive monitoring for toxicity (Heparin, Nitro, Insulin, Cardizem)? @ -No Were any procedures done? @ -No Diagnosis/symptom? @ -Palpitations, anxiety Acute, or Chronic, or Acute on Chronic? @ -Acute Uncomplicated (without systemic symptoms) or Complicated (systemic symptoms)? @ -uncomplicated Side effects of treatment? @ -No Exacerbation, Progression, or Severe Exacerbation? @ -No Poses a threat to life or bodily function? How? (Chest pain, [place], [place], pneumonia, PE, COPD, DKA, ARF, appy, cholecystitis, CVA, Diverticulitis, Homicidal, Suicidal, threat to staff... and all critical care pts) @ -No - Lab Data Result diagrams: 11/11/22 13:35 11/11/22 13:35 Lab Results 11/11/22 11/11/22 11/11/22 Range/Units 13:35 13:35 13:35 WBC 7.5 (3.8-10.6) k/uL RBC 4.04 (3.80-5.40) m/uL Hgb 13.1 (11.4-16.0) gm/dL Hct 38.5 (34.0-46.0) % MCV 95.2 (80.0-100.0) fL MCH 32.4 (25.0-35.0) pg MCHC 34.0 (31.0-37.0) g/dL RDW 13.4 (11.5-15.5) % Plt Count 273 (150-450) k/uL MPV 8.1 Neutrophils % (Manual) 67 % Lymphocytes % (Manual) 23 % Monocytes % (Manual) 9 % Eosinophils % (Manual) 1 % Neutrophils # (Manual) 5.03 (1.3-7.7) k/uL Lymphocytes # (Manual) 1.73 (1.0-4.8) k/uL Monocytes # (Manual) 0.68 (0-1.0) k/uL Eosinophils # (Manual) 0.08 (0-0.7) k/uL Nucleated RBCs 0 (0-0) /100 WBC Manual Slide Review Performed RBC Morphology Normal PT 9.6 (9.0-12.0) sec INR 0.9 (<1.2) APTT 22.8 (22.0-30.0) sec D-Dimer (<0.60) mg/L FEU Sodium 139 (137-145) mmol/L Potassium 3.9 (3.5-5.1) mmol/L Chloride 104 (98-107) mmol/L Carbon Dioxide 28 (22-30) mmol/L Anion Gap 7 mmol/L BUN 16 (7-17) mg/dL Creatinine 0.79 (0.52-1.04) mg/dL Est GFR (CKD-EPI)AfAm 90 (>60 ml/min/1.73 sqM) Est GFR (CKD-EPI)NonAf 78 (>60 ml/min/1.73 sqM) Glucose 108 H (74-99) mg/dL Calcium 9.1 (8.4-10.2) mg/dL Magnesium 2.2 (1.6-2.3) mg/dL Total Bilirubin 0.4 (0.2-1.3) mg/dL AST 24 (14-36) U/L ALT 19 (4-34) U/L Alkaline Phosphatase 80 (38-126) U/L Troponin I (0.000-0.034) ng/mL Total Protein 6.6 (6.3-8.2) g/dL Albumin 4.2 (3.5-5.0) g/dL Urine Color Urine Appearance (Clear) Urine pH (5.0-8.0) Ur Specific [place] (1.001-1.035) Urine Protein (Negative) Urine Glucose (UA) (Negative) Urine Ketones (Negative) Urine Blood (Negative) Urine Nitrite (Negative) Urine Bilirubin (Negative) Urine Urobilinogen (<2.0) mg/dL Ur Leukocyte Esterase (Negative) Urine WBC (0-5) /hpf Urine Bacteria (None) /hpf 11/11/22 11/11/22 11/11/22 Range/Units 13:35 13:35 15:17 WBC (3.8-10.6) k/uL RBC (3.80-5.40) m/uL Hgb (11.4-16.0) gm/dL Hct (34.0-46.0) % MCV (80.0-100.0) fL MCH (25.0-35.0) pg MCHC (31.0-37.0) g/dL RDW (11.5-15.5) % Plt Count (150-450) k/uL MPV Neutrophils % (Manual) % Lymphocytes % (Manual) % Monocytes % (Manual) % Eosinophils % (Manual) % Neutrophils # (Manual) (1.3-7.7) k/uL Lymphocytes # (Manual) (1.0-4.8) k/uL Monocytes # (Manual) (0-1.0) k/uL Eosinophils # (Manual) (0-0.7) k/uL Nucleated RBCs (0-0) /100 WBC Manual Slide Review RBC Morphology PT (9.0-12.0) sec INR (<1.2) APTT (22.0-30.0) sec D-Dimer 0.56 (<0.60) mg/L FEU Sodium (137-145) mmol/L Potassium (3.5-5.1) mmol/L Chloride (98-107) mmol/L Carbon Dioxide (22-30) mmol/L Anion Gap mmol/L BUN (7-17) mg/dL Creatinine (0.52-1.04) mg/dL Est GFR (CKD-EPI)AfAm (>60 ml/min/1.73 sqM) Est GFR (CKD-EPI)NonAf (>60 ml/min/1.73 sqM) Glucose (74-99) mg/dL Calcium (8.4-10.2) mg/dL Magnesium (1.6-2.3) mg/dL Total Bilirubin (0.2-1.3) mg/dL AST (14-36) U/L ALT (4-34) U/L Alkaline Phosphatase (38-126) U/L Troponin I <0.012 (0.000-0.034) ng/mL Total Protein (6.3-8.2) g/dL Albumin (3.5-5.0) g/dL Urine Color Light Yellow Urine Appearance Clear (Clear) Urine pH 6.0 (5.0-8.0) Ur Specific [place] 1.002 (1.001-1.035) Urine Protein Negative (Negative) Urine Glucose (UA) Negative (Negative) Urine Ketones Negative (Negative) Urine Blood Negative (Negative) Urine Nitrite Negative (Negative) Urine Bilirubin Negative (Negative) Urine Urobilinogen <2.0 (<2.0) mg/dL Ur Leukocyte Esterase Trace H (Negative) Urine WBC 2 (0-5) /hpf Urine Bacteria Rare H (None) /hpf Disposition Clinical Impression: Palpitations Disposition: HOME SELF-CARE Condition: Stable Instructions (If sedation given, give patient instructions): Heart Palpitations (ED) Additional Instructions: Please return to the Emergency Department if symptoms worsen or any other concerns. Is patient prescribed a controlled substance at d/c from ED?: No Referrals: Mandy Garrison MD [Primary Care Provider] - 1-2 days Time of Disposition: 16:35
--- NOTE | 2022-11-11 16:21 | XR ---
EXAMINATION TYPE: XR chest 2V DATE OF EXAM: 11/11/2022 COMPARISON: 04/18/2020 INDICATION: Dysrhythmia TECHNIQUE: Frontal and lateral views of the chest are obtained. FINDINGS: The heart size is normal. The pulmonary vasculature is normal. The lungs are clear. IMPRESSION: 1. No acute pulmonary process.
[2022-11-11 17:14] VITALS: BP 126/68; PULSE 101
== END 2022-11-11 17:15 | disposition home or self-care (01) ==
LOC: EC 13:24
DX: F41.9 Anxiety disorder, unspecified (principal); I10 Essential (primary) hypertension; J44.9 Chronic obstructive pulmonary disease, unspecified; E78.5 Hyperlipidemia, unspecified; K21.9 Gastro-esophageal reflux disease without esophagitis; M19.90 Unspecified osteoarthritis, unspecified site; Z79.51 Long term (current) use of inhaled steroids; Z79.899 Other long term (current) drug therapy; Z88.1 Allergy status to other antibiotic agents; Z88.2 Allergy status to sulfonamides; Z88.5 Allergy status to narcotic agent; Z87.891 Personal history of nicotine dependence; Z90.49 Acquired absence of other specified parts of digestive tract
CPT/HCPCS: 36415; 71046; 80053; 81001; 83735; 84484; 85025; 85379; 85610; 85730; 93005; 99285

== ENCOUNTER 2022-12-04 09:15 | Day surgery (SDC) | payer MEDICARE ==
[2022-11-30 15:46] VITALS: BMI 31.4
[~2022-12-04 09:15] MED LIST changes: -ACETAMINOPHEN TAB 500 MG TAB PO STA; +ALPRAZolam 0.25 MG TAB PO PRN; +ALPRAZolam 0.5 MG TAB PO PRN; +ASPIRIN 325 MG TAB PO STA; -DEXAMETHASONE SOD PHOSPHATE 4 MG/ML 1 ML VIAL IV ONE; -GABAPENTIN 300 MG CAP PO STA; -GLYCOPYRROLATE 0.2 MG/ML 2 ML VIAL ONE; -HEPARIN SODIUM,PORCINE/PF 5,000 UNIT/0.5 ML SYRINGE SQ PRN; -INDOCYANINE GREEN 25 MG VIAL IV ONE; -INDOCYANINE GREEN 25 MG VIAL IV STA; -LACTATED RINGERS 1,000 ML IV ONE; -LACTATED RINGERS 1,000 ML IV SCH; -LIDOCAINE 1% (10MG/ML) FOR IV START INTRADERMA ONE; -LIDOCAINE 1% INJ 10MG/ML (20 ML MDV) ONE; -LIDOCAINE 1%-EPI 1:100,000 20 ML VIAL SQ ONE; -MELOXICAM 7.5 MG TAB PO SCH; -MIDAZOLAM 2 MG/2 ML VIAL IV PRN; -MIDAZOLAM 2 MG/2 ML VIAL ONE; -NEOSTIGMINE 1 MG/ML 10 ML VIAL ONE; +NITROGLYCERIN SL TABS 0.4 MG TAB SUBLINGUAL PRN; -ONDANSETRON 4 MG/2 ML VIAL IVP ONE; -PROPOFOL 10 MG/ML 20 ML VIAL IV ONE; -ROCURONIUM 10 MG/ML (5 ML VIAL) IV ONE; -SCOPOLAMINE 1.5MG/72HR PATCH TRANSDERM ONE; +SODIUM CHLORIDE 0.9% 1,000 ML in EMPTY BAG 1 BAG IV SCH; -SUCCINYLCHOLINE CHLORIDE 100 MG/5 ML SYR IV ONE; -SUGAMMADEX SODIUM 500 MG/5 ML SDV IV ONE; -fentaNYL (PF) 50 MCG/ML 2 ML AMP IV PRN; -fentaNYL (PF) 50 MCG/ML 2 ML AMP ONE
[2022-12-04 09:45] VITALS: RESP 16; TEMP 97.6
[2022-12-04] MEDS ORDERED: SODIUM CHLORIDE 0.9% 1,000 ML IV ONE (10:45)
[2022-12-04] MEDS ORDERED: VERAPAMIL 2.5 MG/ML 2 ML AMP ONE (11:08)
[2022-12-04] MEDS ORDERED: fentaNYL (PF) 50 MCG/ML 2 ML AMP ONE (11:08)
[2022-12-04] MEDS ORDERED: fentaNYL (PF) 50 MCG/ML 2 ML AMP IV ONE (11:28)
[2022-12-04] MEDS ORDERED: MIDAZOLAM 2 MG/2 ML VIAL IV ONE (11:28)
[2022-12-04] MEDS ORDERED: LIDOCAINE 1% INJ 10MG/ML (5 ML VIAL-PF) SQ ONE (11:28)
[2022-12-04] MEDS ORDERED: VERAPAMIL SYRINGE (5 MG/10 ML) INTRAARTER ONE (11:30)
[2022-12-04] MEDS ORDERED: HEPARIN SODIUM 1,000 UN/ML (10ML VL) IV ONE (11:32)
[2022-12-04] MEDS ORDERED: IOPAMIDOL-370 100ML BTL INJ ONE (11:41)
--- NOTE | 2022-12-04 11:45 | P.CARDCATH ---
Description of Procedure: PROCEDURES PERFORMED: Left heart catheterization, bilateral coronary angiography INDICATION: Chest pain despite normal stress test CONSENT:I have discussed the risks, benefits and alternative therapies for the above-mentioned procedure and for both sedation/analgesia as well as necessary blood product administration, if indicated, as they pertain to this patient. The patient has indicated understanding and acceptance of the risks and procedures discussed. PROCEDURE: After the risks, benefits and alternatives of the above mentioned procedure explained in detail with the patient, informed consent was obtained. Patient was taken to the catheterization lab and prepped and draped in usual fashion. 1% lidocaine was used to anesthetize the right radial artery. A 6- Mexican sheath was placed in the right radial artery using modified Seldinger technique. Left coronary angiography was performed with a 5-Mexican JL 3.5 catheter and right coronary angiography was performed with a 5-Mexican JR5 catheter in various views. A 5-Mexican FR5 catheter was inserted into the left ventricle and pressure measurements were obtained. The right radial sheath was removed and a TR band was placed with hemostasis achieved. The patient tolerated the procedure well. Patient was transported back to the post catheterization holding area in stable condition. Conscious Sedation: Patient was monitored under the direct supervision of myself for conscious sedation using Versed and fentanyl for a total duration of 12 minutes HEMODYNAMICS: Aortic: 156 86 LV: 161/5, LVEDP 22 SELECTIVE CORONARY ARTERIOGRAPHY: LEFT MAIN: The left main is a large caliber vessel which bifurcates into the LAD and circumflex. There is no significant stenosis. LEFT ANTERIOR DESCENDING CORONARY ARTERY: LAD is a large caliber vessel which wraps around to the apex. There are mild luminal irregularities of the LAD. Diagonal 1 is small caliber and has an ostial 60-70% stenosis. LEFT CIRCUMFLEX CORONARY ARTERY: Left circumflex is a moderate caliber vessel without significant stenosis. RIGHT CORONARY ARTERY: The right coronary artery is a large caliber vessel which gives off a PDA and PLV branch and is the dominant vessel. There is no significant stenosis. FINAL IMPRESSION: 1. Relatively normal coronary arteries with mild luminal irregularities of the LAD and an ostial small caliber diagonal 1 branch 60-70% stenosis. 2. Elevated left sided filling pressures PLAN: 1. Aggressive risk factor modification per most recent ACC/AHA guidelines. 2. Given very small caliber diagonal branch and appearing intermediate 60-70% stenosis recommend medical therapy. Does not appear hemodynamically significant however may consider antianginals. Consider diuretics with increased LVEDP.
[2022-12-04 15:21] VITALS: BP 120/60; PULSE 80
== END 2022-12-04 15:20 | disposition home or self-care (01) ==
LOC: CATHCVL 09:15
PROVIDERS: ATTEND Internal Medicine
DX: I25.10 Atherosclerotic heart disease of native coronary artery without angina pectoris (principal)
CPT/HCPCS: 93458; C1769; C1894; J2250; J2001; J3010; J1644; Q9967

== ENCOUNTER 2022-12-13 17:34 | Emergency (ER) | payer MEDICARE ==
[2022-12-13 17:46] VITALS: TEMP 98.5
--- NOTE | 2022-12-13 18:21 | ED ---
Chest Pain HPI - General Chief Complaint: Chest Pain Stated Complaint: chest pressure Time Seen by Provider: 12/13/22 18:01 Source: patient Mode of arrival: ambulatory Limitations: no limitations - History of Present Illness MD Complaint: chest pain -: hour(s) Onset: during rest Pain Location: substernal Pain Radiation: none Quality: dull Consistency: intermittent, now resolved Improves With: nothing Worsens With: nothing Other Symptoms: palpitations Treatments Prior to Arrival: none - Related Data Home Medications Medication Instructions Recorded Confirmed Atorvastatin [Lipitor] 20 mg PO HS 05/11/16 12/13/22 Montelukast [Singulair] 10 mg PO HS 03/12/19 12/13/22 Fluticasone Nasal [place] [Flonase 1 spray EA NOSTRIL DAILY PRN 04/18/20 12/13/22 Nasal [place]] Hydrocodone/Acetaminophen [Mentone 1 tab PO Q6H PRN 04/18/20 12/13/22 5-325] Metoprolol Succinate [Toprol XL] 25 mg PO DAILY 04/18/20 12/13/22 Balsalazide Disodium 2,250 mg PO BID 03/09/21 12/13/22 Cholecalciferol [Vitamin D3 (25 50 mcg PO DAILY 03/09/21 12/13/22 Mcg = 1000 Iu)] Dicyclomine [Bentyl] 2 cap PO DAILY 11/10/21 12/13/22 Fexofenadine HCl [Marybeth Allergy] 180 mg PO DAILY 11/10/21 12/13/22 Ondansetron [Zofran] 4 mg PO Q8HR PRN 11/10/21 12/13/22 Valsartan 160 mg PO BID 11/16/22 12/13/22 Escitalopram [Lexapro] 10 mg PO HS 12/13/22 12/13/22 Ezetimibe [Zetia] 10 mg PO DIRECTED 12/13/22 12/13/22 Isosorbide Mononitrate ER [Imdur] 30 mg PO DAILY 12/13/22 12/13/22 Allergies Allergy/AdvReac Type Severity Reaction Status Date / Time morphine AdvReac Nausea & Verified 12/13/22 19:21 Vomiting sulfamethoxazole AdvReac Rash/Hives Verified 12/13/22 19:21 [From Bactrim] trimethoprim [From Bactrim] AdvReac Rash/Hives Verified 12/13/22 19:21 Review of Systems ROS Statement: Those systems with pertinent positive or pertinent negative responses have been documented in the HPI. ROS Other: All systems not noted in ROS Statement are negative. Constitutional: Denies: fever, chills Respiratory: Denies: cough, dyspnea Cardiovascular: Reports: chest pain, palpitations Gastrointestinal: Denies: abdominal pain, vomiting, diarrhea Genitourinary: Denies: dysuria, hematuria Musculoskeletal: Denies: back pain Skin: Denies: rash Neurological: Denies: headache, weakness EKG Findings - EKG Results: EKG: interpreted by ERMD, sinus rhythm, normal axis, normal QRS EKG shows: tachycardia (Rate 103 bpm) - Blocks, Lesage, Hypertrophy, ST Abn: Repolarization changes or abnormalities: nonspecific abnormality, ST segment, and/or T wave Past Medical History Past Medical History: COPD, Eye Disorder, GERD/Reflux, Hyperlipidemia, Hypertension, Osteoarthritis (OA) Additional Past Medical History / Comment(s): Ulcerative colitis/IBS, diverticulitis, benign colon polyps, nephrolithiasis, varicose vein History of Any Multi-Drug Resistant Organisms: None Reported Past Surgical History: Adenoidectomy, Bowel Resection, Cholecystectomy, Heart Catheterization, Hysterectomy, Orthopedic Surgery, Tonsillectomy Additional Past Surgical History / Comment(s): lithotripsies,colonoscopy,rt knee arthroscopy Past Anesthesia/Blood Transfusion Reactions: Motion Sickness, Postoperative Nausea & Vomiting (PONV) Past Psychological History: Anxiety Smoking Status: Former smoker Past Alcohol Use History: None Reported Past Drug Use History: None Reported - Past Family History Mother Family Medical History: Cancer Additional Family Medical History / Comment(s): . Father Family Medical History: Myocardial Infarction (ND) Additional Family Medical History / Comment(s): Father at the age of 83 yrs from a ND General Exam Limitations: no limitations General appearance: alert, in no apparent distress Head exam: Present: atraumatic, normocephalic Eye exam: Present: normal appearance Neck exam: Present: normal inspection Respiratory exam: Present: normal lung sounds bilaterally. Absent: respiratory distress, wheezes, rales, rhonchi, stridor Cardiovascular Exam: Present: regular rate, normal rhythm, normal heart sounds. Absent: systolic murmur, diastolic murmur, rubs, gallop GI/Abdominal exam: Present: soft. Absent: distended, tenderness, guarding, rebound, rigid Extremities exam: Present: normal inspection, normal capillary refill. Absent: pedal edema, calf tenderness Back exam: Present: normal inspection. Absent: CVA tenderness (R), CVA tenderness (L) Neurological exam: Present: alert Skin exam: Present: warm, dry, intact, normal color. Absent: rash Course Vital Signs 12/13/22 12/13/22 12/13/22 17:43 19:08 19:11 Temperature 98.5 F Pulse Rate 110 H 105 H 103 H Respiratory 20 16 Rate Blood Pressure 150/81 124/75 O2 Sat by Pulse 95 93 L 95 Oximetry 12/13/22 12/13/22 12/13/22 19:50 20:00 20:10 Temperature Pulse Rate 98 99 101 H Respiratory Rate Blood Pressure 124/75 124/75 124/75 O2 Sat by Pulse 95 93 L 97 Oximetry 12/13/22 12/13/22 12/13/22 20:20 20:30 20:40 Temperature Pulse Rate 100 101 H 112 H Respiratory Rate Blood Pressure 124/75 124/75 124/75 O2 Sat by Pulse 96 96 96 Oximetry 12/13/22 12/13/22 12/13/22 20:50 21:00 21:10 Temperature Pulse Rate 105 H 103 H 104 H Respiratory 16 Rate Blood Pressure 124/75 124/75 127/72 O2 Sat by Pulse 95 95 95 Oximetry 12/13/22 12/13/22 21:20 22:07 Temperature Pulse Rate 82 85 Respiratory 18 Rate Blood Pressure 132/76 127/74 O2 Sat by Pulse 95 95 Oximetry Chest Pain MDM - MDM This patient is a 67-year-old woman presenting after she had some chest pain and associated palpitations. The patient does note that she recently had a heart catheterization. She was concerned as she did have the recent procedure. There was no associated dyspnea, diaphoresis, nausea or vomiting. The palpitations were not sustained Patient had chest x-ray which I interpreted as being negative for acute infiltrate, pneumothorax, congestive heart failure Was pt. sent in by a medical professional or institution (, PA, FOOD CHEMIST, urgent care, hospital, or assisted...) When possible be specific @ -[No] Did you speak to anyone other than the patient for history (EMS, parent, family, police, friend...)? What history was obtained from this source @ -[No] Did you review nursing and triage notes (agree or disagree)? Why? @ -[I reviewed and agree with nursing and triage notes] Were old charts reviewed (outside hosp., previous admission, EMS record, old EKG, old radiological studies, urgent care reports/EKG's, assisted records)? Report findings @ -old charts were reviewed] Differential Diagnosis (chest pain, altered mental status, abdominal pain women, abdominal pain men, vaginal bleeding, weakness, fever, dyspnea, syncope, headache, dizziness, GI bleed, back pain, seizure, CVA, palpatations, mental health, musculoskeletal)? @ -[Differential Chest Pain: Stable Angina, Unstable Angina, STEMI, NSTEMI Aortic Dissection, Pneumothorax, Musculoskeletal, Esophageal Spasm GERD, Cholecystitis, Pancreatitis, Zoster, this is not meant to be an all-inclusive list. EKG interpreted by me (3pts min.). @ -[As above] X-rays interpreted by me (1pt min.). @ -[As above CT interpreted by me (1pt min.). @ -[None done] U/S interpreted by me (1pt. min.). @ -[None done] What testing was considered but not performed or refused? (CT, X-rays, U/S, labs)? Why? @ -[None] What meds were considered but not given or refused? Why? @ -[None] Did you discuss the management of the patient with other professionals (professionals i.e. , PA, FOOD CHEMIST, lab, RT, psych nurse, psychiatric social worker, is/it project manager, teacher, armed security officer, embedded case manager)? Give summary @ -[No] Was smoking cessation discussed for >3mins.? @ -[No] Was critical care preformed (if so, how long)? @ -[No] Were there social determinants of health that impacted care today? How? (Homelessness, low income, unemployed, alcoholism, drug addiction, transportation, low edu. Level, literacy, decrease access to med. care, long-term, rehab)? @ -[No] Was there de-escalation of care discussed even if they declined (Discuss DNR or withdrawal of care, Hospice)? DNR status @ -[No] What co-morbidities impacted this encounter? (DM, HTN, Smoking, COPD, CAD, Cancer, CVA, ARF, Chemo, Hep., AIDS, mental health diagnosis, sleep apnea, morbid obesity)? @ -[None] Was patient admitted / discharged? Hospital course, mention meds given and route, prescriptions, significant lab abnormalities, going to OR and other pertinent info. @ -[Discharged Undiagnosed new problem with uncertain prognosis? @ -[No] Drug Therapy requiring intensive monitoring for toxicity (Heparin, Nitro, Insulin, Cardizem)? @ -[No] Were any procedures done? @ -[No] Diagnosis/symptom? @ -[default] Acute, or Chronic, or Acute on Chronic? @ -[Acute Uncomplicated (without systemic symptoms) or Complicated (systemic symptoms)? @ -[uncomplicated Side effects of treatment? @ -[No] Exacerbation, Progression, or Severe Exacerbation? @ -[No] Poses a threat to life or bodily function? How? (Chest pain, [place], [place], pneumonia, PE, COPD, DKA, ARF, appy, cholecystitis, CVA, Diverticulitis, Homicidal, Suicidal, threat to staff... and all critical care pts) @ -[No] Disposition Clinical Impression: Palpitations Disposition: HOME SELF-CARE Condition: Good Instructions (If sedation given, give patient instructions): Heart Palpitations (ED) Is patient prescribed a controlled substance at d/c from ED?: No Referrals: Mandy Garrison MD [Primary Care Provider] - 1-2 days Zhen Massey MD [STAFF PHYSICIAN] - 1-2 days
[2022-12-13 18:49] LABS: Basophils % (A) 0 %; Eosinophils # (A) 0.1 k/uL (0-0.7); Eosinophils % (A) 1 %; HCT 38.3 % (34.0-46.0); HGB 12.9 gm/dL (11.4-16.0); Lymphocytes # (A) 1.4 k/uL (1.0-4.8); Lymphocytes % (A) 16 %; MCH 32.9 pg (25.0-35.0); MCHC 33.7 g/dL (31.0-37.0); MCV 97.6 fL (80.0-100.0); Mean Platelet Volume 8.4; Monocytes # (A) 0.6 k/uL (0-1.0); Monocytes % (A) 7 %; Neutrophils # (A) 6.1 k/uL (1.3-7.7); Neutrophils % (A) 72 %; Platelet Count 241 k/uL (150-450); RBC 3.93 m/uL (3.80-5.40); RDW 12.7 % (11.5-15.5); WBC 8.4 k/uL (3.8-10.6)
--- NOTE | 2022-12-13 18:50 | XR ---
EXAMINATION TYPE: XR chest 2V DATE OF EXAM: 12/13/2022 6:42 PM COMPARISON: Chest radiographs from 11/11/2022 TECHNIQUE: XR chest 2V Frontal and lateral views of the chest. CLINICAL INDICATION:Female, 67 years old with history of Chest Pain; FINDINGS: Lungs/Pleura: There is flattening of the diaphragm with increased lucency of the lungs. No evidence o f pneumothorax, pleural effusion or focal consolidation. Pulmonary vascularity: Unremarkable. Heart/mediastinum: Cardiomediastinal silhouette is unremarkable. Musculoskeletal: No acute osseous pathology. IMPRESSION: 1. No acute cardiopulmonary disease process. 2. COPD changes.
[2022-12-13 18:54] LABS: INR 0.9 (<1.2); Partial Thromboplastin Time 22.4 sec (22.0-30.0); Prothrombin Time 9.8 sec (9.0-12.0)
[2022-12-13 19:27] LABS: ALT 16 U/L (4-34); AST 22 U/L (14-36); African American GFR (CKD) >90 (>60 ml/min/1.73 sqM); Albumin 4.1 g/dL (3.5-5.0); Alkaline Phosphatase 71 U/L (38-126); Anion Gap 8 mmol/L; Blood Urea Nitrogen 16 mg/dL (7-17); Calcium 9.2 mg/dL (8.4-10.2); Carbon Dioxide 27 mmol/L (22-30); Chloride 104 mmol/L (98-107); Glucose 107 mg/dL (74-99); Non-African American GFR(CKD) 84 (>60 ml/min/1.73 sqM); Potassium 3.6 mmol/L (3.5-5.1); Sodium 139 mmol/L (137-145); Total Bilirubin 0.7 mg/dL (0.2-1.3); Total Protein 6.3 g/dL (6.3-8.2)
[2022-12-13] MEDS ORDERED: METOPROLOL TARTRATE 5 MG/5 ML VIAL IVP STA (20:25)
[2022-12-13 22:13] VITALS: BP 127/74; PULSE 85; RESP 18
== END 2022-12-13 22:22 | disposition home or self-care (01) ==
LOC: EC 17:34
DX: R00.2 Palpitations (principal); I10 Essential (primary) hypertension; E78.5 Hyperlipidemia, unspecified; F41.9 Anxiety disorder, unspecified; J44.9 Chronic obstructive pulmonary disease, unspecified; M19.90 Unspecified osteoarthritis, unspecified site; Z79.899 Other long term (current) drug therapy; Z87.891 Personal history of nicotine dependence; Z88.1 Allergy status to other antibiotic agents; Z88.2 Allergy status to sulfonamides; Z88.5 Allergy status to narcotic agent; Z90.49 Acquired absence of other specified parts of digestive tract
CPT/HCPCS: 36415; 71046; 80053; 83735; 84484; 85025; 85610; 85730; 93005; 96374; 99285

== ENCOUNTER → 2023-06-20 | Outpatient (CLI) | payer MEDICARE ==
--- NOTE | 2023-06-20 11:09 | XR ---
EXAMINATION TYPE: XR KUB DATE OF EXAM: 06/20/2023 COMPARISON: 04/06/2021 HISTORY: Pain TECHNIQUE: One view abdominal series FINDINGS: The osseous structures are intact. The bowel gas pattern is nonspecific. There is a 6 mm calcificati on in the right kidney with a additional multiple punctate calculi. There are multiple punctate calcu li the largest measuring 2 mm overlying the left kidney similar to the prior exam. Degenerative changes spine. Arthropathy of the hips. Diffuse osteopenia. Previous surgery in the pelv is. IMPRESSION: 1. Bilateral nephrolithiasis as discussed above.
== END | disposition home or self-care (01) ==
LOC: RADXRMAIN 10:45
PROVIDERS: ATTEND Family Medicine
DX: N20.0 Calculus of kidney (principal); N28.89 Other specified disorders of kidney and ureter; R30.0 Dysuria
CPT/HCPCS: 74018

== ENCOUNTER → 2023-07-06 | Outpatient (CLI) | payer MEDICARE ==
--- NOTE | 2023-07-06 14:33 | MM ---
Reason for Exam: Screening (asymptomatic). Last mammogram was performed 1 year(s) and 1 month(s) ago. Patient History: Menarche at age 9. First Full-Term at age 16. Hysterectomy at age 36. Postmenopausal. Patient has history of breast feeding. Risk Values: Kaylah 5 year model risk: 1.4%. NCI Lifetime model risk: 4.2%. Prior Study Comparison: 11/01/2016 Bilateral Screening Mammogram, [facility]. 05/28/2018 Bilateral Screening Mammogram, [facility]. 07/18/2019 Bilateral Screening Mammogram, [facility]. 05/04/2021 Bilateral Screening Mammogram, [facility]. 06/28/2022 Bilateral MG 3D screening mammo w/cad, [facility]. Tissue Density: There are scattered fibroglandular densities. Findings: Analyzed By CAD. There is no suspicious group of microcalcifications or new suspicious mass. Benign-appearing calcifications bilaterally. Overall Assessment: Benign, BI-RAD 2 Management: Screening Mammogram of both breasts in [address] [facility] will attempt to contact patient to return for supplemental views and ultrasound if indicated. Patient should continue monthly self-breast exams. A clinical breast exam by your physician is recommended on an annual basis. This exam should not preclude additional follow-up of suspicious palpable abnormalities. Note on Kaylah scores and lifetime risk: 1. A Kaylah score greater than 3% is considered moderate risk. If this is the case, consider specialist referral to assess eligibility for a risk reducing agent. 2. If overall lifetime risk for the development of breast cancer is 20% or higher, the patient may qualify for future screening with alternating mammogram and breast MRI. Electronically signed and approved by: Bladimir Zelaya DO
--- NOTE | 2023-07-08 12:12 | BD ---
EXAMINATION TYPE: Axial Bone Density DATE OF EXAM: 07/06/2023 CLINICAL HISTORY: 68 years old Female. ICD-10 CODE: M85.88 OT DISRD OF BONE DENSITY Height: 65.5 Weight: 186.3 FRAX RISK QUESTIONS: Alcohol (3 or more units per day): no Family History (Parent hip fracture): no Glucocorticoids (More than 3mos): no (Ex: prednisone, prednisolone, methylprednisolone, dexamethasone, and hydrocortisone). History of Fracture in Adulthood: yes Secondary Osteoporosis: 1. Type 1 Diabetes: no 2. Hyperthyroidism: no 3. Menopause before 45: yes 4. Malnutrition: yes 5. Chronic liver disease: no Rheumatoid Arthritis: no Current Tobacco Use: no RISK FACTORS HISTORY OF: Surgery to Spine/Hip(right/left)/Wrist (right/left): no MEDICATIONS: Prednisone or other steroids: currently taking steroids for colitis How Lon days Additional History: EXAM MEASUREMENTS: Bone mineral densitometry was performed using the [employer] System. Bone mineral density as measured about the Lumbar spine is: ----- L1-L4(G/cm2): 0.999 T Score Values are as follows: ----- L1: -1.1 ----- L2: -1.2 ----- L3: -1.7 ----- L4: -2.0 ----- L1-L4: -1.5 Z Score Values are as follows: ----- L1: -0.1 ----- L2: -0.2 ----- L3: -0.7 ----- L4: -1.0 ----- L1-L4: -0.5 Bone mineral density has: increased 0.6 % since study of: 05.04.2021 Bone mineral density about the R hip (g/cm2): 0.824 Bone mineral density about the L hip (g/cm2): 0.863 T Score values are as follows: -----R Neck: -2.3 -----L Neck: -1.9 -----R Total: -1.5 -----L Total: -1.1 Z Score values are as follows: -----R Neck: -1.0 -----L Neck: -0.7 -----R Total: -0.5 -----L Total: -0.2 Bone mineral density has: decreased -0.7 % since study of: 11.3.2020 FRAX%s: The graph provided illustrates a 20.0% chance for a major osteoporotic fx and a 4.2% chance f or the hips probability for fx in 10 years time. IMPRESSION: Osteopenia (T Score between -2.5 and -1). There is slightly increased risk of fracture and the patient may be considered for treatment. Re-Screen 2-5 years. NOTE: T-SCORE=SD OF THE YOUNG ADULT MEAN.
== END | disposition home or self-care (01) ==
LOC: RADBDWWP 13:21
PROVIDERS: ATTEND Family Medicine
DX: Z12.31 Encounter for screening mammogram for malignant neoplasm of breast (principal); M85.89 Other specified disorders of bone density and structure, multiple sites; Z78.0 Asymptomatic menopausal state
CPT/HCPCS: 77063; 77067; 77080

== ENCOUNTER → 2023-10-29 | Outpatient (CLI) | payer MEDICARE ==
[2023-10-29 14:54] LABS: Basophils # (A) 0.03 X 10*3/uL (0.00-0.10); Basophils % (A) 0.4 %; Eosinophils # (A) 0.26 X 10*3/uL (0.04-0.35); Eosinophils % (A) 3.4 %; HCT 39.2 % (37.2-46.3); HGB 12.8 g/dL (12.0-15.0); Lymphocytes # (A) 1.67 X 10*3/uL (0.90-5.00); Lymphocytes % (A) 21.5 %; MCH 31.8 pg (27.0-32.0); MCHC 32.7 g/dL (32.0-37.0); MCV 97.5 FL (80.0-97.0); Mean Platelet Volume 10.8 FL (9.5-12.2); Monocytes # (A) 0.74 X 10*3/uL (0.20-1.00); Monocytes % (A) 9.5 %; NRBC Per 100 WBC 0 X 10*3/uL (0.00-0.01); Neutrophils # (A) 5.03 X 10*3/uL (1.80-7.70); Neutrophils % (A) 64.9 %; Platelet Count 241 X 10*3/uL (140-440); RBC 4.02 X 10*6/uL (4.10-5.20); RDW 12.5 % (11.5-14.5); WBC 7.75 X 10*3/uL (4.50-10.00)
[2023-10-29 15:06] LABS: ALT 27 U/L (8-44); AST 20 U/L (13-35); Albumin 4.5 g/dL (3.8-4.9); Albumin/Globulin Ratio 2.14 Ratio (1.60-3.17); Alkaline Phosphatase 81 U/L (41-126); Blood Urea Nitrogen 17.8 mg/dL (9.0-27.0); Calcium 9.8 mg/dL (8.7-10.3); Carbon Dioxide 27.3 mmol/L (21.6-31.8); Chloride 98 mmol/L (96-109); Globulin 2.1 g/dL (1.6-3.3); Glucose 95 mg/dL (70-110); Potassium 4.7 mmol/L (3.5-5.5); Sodium 143 mmol/L (135-145); Total Bilirubin 0.5 mg/dL (0.3-1.2); Total Protein 6.6 g/dL (6.2-8.2)
[2023-10-29 15:53] LABS: Erythrocyte Sedimentation Rate 15 mm/Hr (0-30)
== END | disposition home or self-care (01) ==
LOC: LABWHC1 11:28
PROVIDERS: ATTEND Nurse Practitioner Family
DX: K51.30 Ulcerative (chronic) rectosigmoiditis without complications (principal)
CPT/HCPCS: 36415; 80053; 85025; 85652; 86140

== ENCOUNTER 2023-11-20 09:07 | Day surgery (SDC) | payer MEDICARE ==
[2023-11-15 16:03] VITALS: BMI 30.3
[~2023-11-20 09:07] MED LIST changes: -ALPRAZolam 0.25 MG TAB PO PRN; -ALPRAZolam 0.5 MG TAB PO PRN; -ASPIRIN 325 MG TAB PO STA; +LIDOCAINE 1% (10MG/ML) FOR IV START INTRADERMA PRN; -NITROGLYCERIN SL TABS 0.4 MG TAB SUBLINGUAL PRN; -SODIUM CHLORIDE 0.9% 1,000 ML in EMPTY BAG 1 BAG IV SCH
[2023-11-20] MEDS: LACTATED RINGERS 1,000 ML IV SCH (09:52)
[2023-11-20 09:58] LABS: Glucose,Whole Blood 88 mg/dL (70-110)
[2023-11-20] MEDS ORDERED: PROPOFOL 10 MG/ML 20 ML VIAL IV ONE (10:25)
[2023-11-20 10:37] VITALS: RESP 16; TEMP 97.6
--- NOTE | 2023-11-20 10:39 | P.PCN ---
Date of Procedure: 11/20/23 Procedure(s) Performed: BRIEF HISTORY: Patient is a 68-year-old pleasant white female scheduled for an elective colonoscopy as a part of signs of longstanding history of ulcerative colitis diagnosed in 1996. She has history of sigmoid resection for sigmoid diverticuli related stricture many years ago. She has been having frequent flareups in the last 6 months requiring budesonide for 3 months. Currently back on the budesonide 9 mg daily for the last 1 month. Scheduled for a colonoscopy to evaluate further. PROCEDURE PERFORMED: Colonoscopy with biopsy. PREOPERATIVE DIAGNOSIS: Longstanding history of ulcerative colitis with recent flareup. IV sedation per Anesthesia. PROCEDURE: After informed consent was obtained, the patient, was brought into the endoscopy unit. IV sedation was administered by Anesthesia under continuous monitoring. Digital rectal examination was normal. Initially the Olympus CF-160 flexible video colonoscope was then inserted in the rectum, gradually advanced into the cecum without any difficulty. Careful examination was performed as the scope was gradually being withdrawn. Ileocecal valve and the appendiceal orifice were visualized and appeared normal. Prep was excellent. Mucosa of the cecum, ascending colon, transverse colon, descending colon, appeared normal. There was sigmoid anastomosis at 20 cm from the anal verge that appeared normal. In the rectum there was mild patchy areas of erythema consistent with active colitis. Biopsies were done from this area. . Retroflexion was performed in the rectum and no lesions were seen. The patient tolerated the procedure well. IMPRESSION: Mild mucosal erythema noted in the rectum up to 20 cm from the anal verge s/p biopsy Sigmoid anastomosis located 20 cm from anal verge that appeared normal Rest of the colon appeared normal. RECOMMENDATIONS: Findings of this examination were discussed with the patient as well as her family. She was advised to follow-up with the biopsy results. Continue with Asacol 810 mg 2 tablets 3 times daily. Continue with budesonide tapering dose. Follow-up in the office in 3 months..
[2023-11-20 11:36] VITALS: BP 113/66; PULSE 74
== END 2023-11-20 11:18 | disposition home or self-care (01) ==
LOC: ORWHC2ENDO 09:07
PROVIDERS: ATTEND Internal Medicine Gastroenterology
DX: K62.89 Other specified diseases of anus and rectum (principal); K51.90 Ulcerative colitis, unspecified, without complications; I10 Essential (primary) hypertension; E78.5 Hyperlipidemia, unspecified; J44.9 Chronic obstructive pulmonary disease, unspecified; M19.90 Unspecified osteoarthritis, unspecified site; F41.9 Anxiety disorder, unspecified; Z79.899 Other long term (current) drug therapy; Z88.1 Allergy status to other antibiotic agents; Z98.890 Other specified postprocedural states; Z88.8 Allergy status to other drugs, medicaments and biological substances; Z90.49 Acquired absence of other specified parts of digestive tract
CPT/HCPCS: 88305; 45380; J2704

== ENCOUNTER 2024-08-23 04:37 | Inpatient (IN) | payer MEDICARE ==
[2024-08-23 04:42] LABS: Glucose,Whole Blood 367 mg/dL (70-110)
--- NOTE | 2024-08-23 04:52 | ED ---
General Adult HPI - General Chief complaint: Abdominal Pain Stated complaint: Abd Pain Time Seen by Provider: 08/23/24 04:38 Source: patient, EMS Mode of arrival: EMS - History of Present Illness Initial comments: Patient is a 69-year-old female presenting today for sudden onset abdominal pain. Went to the bathroom this evening, started having severe lower abdominal pain. Had a bowel movement that was normal and color and consistency for her, no bloody stools. Patient's found her in the bathroom on the floor, patient too weak to get up. Per EMS patient hyperglycemia without history of diabetes. Denies history of prior abdominal surgeries, not on thinners. Hi story is limited by acute of condition - Related Data Home Medications Medication Instructions Recorded Confirmed Atorvastatin [Lipitor] 20 mg PO HS 05/11/16 11/20/23 Montelukast [Singulair] 10 mg PO HS 03/12/19 11/20/23 Fluticasone Nasal [place] [Flonase 1 spray EA NOSTRIL DAILY PRN 04/18/20 11/20/23 Nasal [place]] Hydrocodone/Acetaminophen [[place] 1 tab PO Q6H PRN 04/18/20 11/20/23 5-325] Cholecalciferol [Vitamin D3 (25 50 mcg PO DAILY 03/09/21 11/20/23 Mcg = 1000 Iu)] Dicyclomine [Bentyl] 10 mg PO TID 11/10/21 11/20/23 Ondansetron [Zofran] 4 mg PO Q8HR PRN 11/10/21 11/20/23 Valsartan 160 mg PO BID 11/16/22 11/15/23 Ezetimibe [Zetia] 10 mg PO HS 12/13/22 11/20/23 Budesonide [Entocort EC] 3 mg PO TID 11/15/23 11/20/23 Escitalopram [Lexapro] 20 mg PO HS 11/15/23 11/20/23 Loratadine [Claritin] 10 mg PO DAILY 11/15/23 11/15/23 Mesalamine [Asacol Hd] 1,600 mg PO TID 11/15/23 11/15/23 Metoprolol Succinate (ER) [Toprol 50 mg PO QAM 11/15/23 11/15/23 Xl] Multivitamins, Thera [Multivitamin 1 tab PO DAILY 11/15/23 11/20/23 (formulary)] traMADol HCL 50 mg PO Q6H PRN 11/15/23 11/20/23 Allergies Allergy/AdvReac Type Severity Reaction Status Date / Time morphine AdvReac Nausea & Verified 08/23/24 04:44 Vomiting sulfamethoxazole AdvReac Rash/Hives Verified 08/23/24 04:44 [From Bactrim] trimethoprim [From Bactrim] AdvReac Rash/Hives Verified 08/23/24 04:44 Review of Systems ROS Statement: Those systems with pertinent positive or pertinent negative responses have been documented in the HPI. ROS Other: All systems not noted in ROS Statement are negative. Past Medical History Past Medical History: Eye Disorder, GERD/Reflux, Hyperlipidemia, Hypertension, Osteoarthritis (OA) Additional Past Medical History / Comment(s): Ulcerative Colitis/IBS, diverticulitis, benign colon polyps, hs kidney stones, varicose vein, possible COPD, small cataracts, hx high heart rate. History of Any Multi-Drug Resistant Organisms: None Reported Past Surgical History: Adenoidectomy, Bowel Resection, Cholecystectomy, Heart Catheterization, Hysterectomy, Orthopedic Surgery, Tonsillectomy Additional Past Surgical History / Comment(s): Lithotripsies, colonoscopies, right knee arthroscopy. Past Anesthesia/Blood Transfusion Reactions: Motion Sickness, Postoperative Nausea & Vomiting (PONV) Past Psychological History: Anxiety Smoking Status: Former smoker Past Alcohol Use History: None Reported Past Drug Use History: Marijuana - Past Family History Mother Family Medical History: Cancer Father Family Medical History: Myocardial Infarction (NM) Additional Family Medical History / Comment(s): Father at the age of 83 yrs from a [place]. General Exam - General Exam Comments Initial Comments: PE: CONSTITUTIONAL: [In acute distress, ill appearing, pale, diaphoretic] SKIN: [cool, pale, damp] EYES:[ pupils are equally round, extraocular movements intact without nystagmus, pale conjunctiva, non-icteric sclera] HENT: [normocephalic, atraumatic, dry mucus membranes, oropharynx clear without exudates] NECK: , [Full range of motion, normal appearance] PULMONARY: [clear to auscultation without wheezes, rhonchi, or rales, normal excursion, no accessory muscle use and no stridor] CARDIOVASCULAR:[ regular rate, rhythm, normal S1 and S2. No appreciated murmurs, rubs or gallops. weak and equal 1+ radial and DP pulses bilaterally, extremities cool and clammy to the touch. No lower extremity edema] GASTROINTESTINAL: [soft, active bowel sounds throughout,diffusely tender and mildly distended, no palpable masses, guarding with palpation throughout No hepatosplenomegaly] GENITOURINARY: MUSCULOSKELETAL: [Extremities have no gross deformity ] NEUROLOGIC: [_a/o x 3, GCS 15, normal mentation and speech, though drowsy. Moves all extremities x 4 though generalized weakness noted] Course Vital Signs 08/23/24 08/23/24 08/23/24 04:41 05:05 05:15 Temperature 96.4 F L Pulse Rate 86 75 102 H Respiratory 14 14 16 Rate Blood Pressure 142/127 111/51 89/67 O2 Sat by Pulse 96 97 95 Oximetry 08/23/24 08/23/24 08/23/24 05:28 05:29 05:35 Temperature 97.4 F L Pulse Rate 103 H 97 Respiratory 16 16 Rate Blood Pressure 58/22 73/46 O2 Sat by Pulse 94 L 97 Oximetry 08/23/24 08/23/24 08/23/24 05:42 05:50 05:54 Temperature 93.4 F L 94.5 F L Pulse Rate 103 H 105 H 105 H Respiratory 16 16 16 Rate Blood Pressure 71/49 71/53 69/42 O2 Sat by Pulse 98 97 97 Oximetry 08/23/24 08/23/24 08/23/24 05:57 05:59 06:00 Temperature 94.8 F L 95 F L Pulse Rate 101 H 101 H 100 Respiratory 16 16 16 Rate Blood Pressure 101/52 107/66 107/66 O2 Sat by Pulse 100 98 94 L Oximetry 08/23/24 08/23/24 08/23/24 06:04 06:10 06:20 Temperature 95.2 F L Pulse Rate 88 80 78 Respiratory 16 16 16 Rate Blood Pressure 113/68 135/78 126/88 O2 Sat by Pulse 99 100 100 Oximetry 08/23/24 08/23/24 06:30 07:00 Temperature 94.8 F L 95.2 F L Pulse Rate 91 120 H Respiratory 16 28 H Rate Blood Pressure 117/101 99/78 O2 Sat by Pulse 100 97 Oximetry ABP, PAP, CO, CI - Last 8 Hours Arterial Blood Pressure 298/0 - Reevaluation(s) Reevaluation #1: Patient seen and immediately evaluated upon arrival. Patient pale, diaphoretic, cool to the touch, drowsy. Abdomen is mildly distended and diffusely tender. She does have 1+ pulses in all 4 extremities with a narrow pulse pressure however systolic blood pressure 142. She is not tachycardic with heart rates in the 80s and 90s. Bedside FAST exam was performed did not show any free fluid. Patient will be immediately transported to CT out of concern for ruptured AAA or other emergent or abdominal process. Given patient's pallor and abdominal pain and concern for the above, 1 unit of O- blood was ordered to be given if signs of active hemorrhage on CT 08/23/24 04:51 Reevaluation #2: Prior to transfer to CT, patient had a blood pressure of 80/20, Trendelenburg, fluids pressure bagged in, repeat ultrasound did not show any free fluid in the abdomen, aorta was visualized and I see no pulsatile mass or signs of dissection or rupture, blood pressure improved with IV fluid bolus, she will be emergently taken to CT. Of note CT is currently across the other side of the hospital, ED CT is not available 08/23/24 05:01 Reevaluation #3: Patient remained hypotensive, activated massive transfusion protocol ongoing, ordered Levophed. Dr. King has been called and is on his way 08/23/24 05:45 08/23/24 08:02 EKG Findings - EKG Comments: EKG Findings:: Sinus tachycardia, rate 101 bpm AK interval 145 milliseconds, QRS duration 84 ms QT/QTc 344/402 ms, normal axis, no ST elevations or depressions, no arrhythmia no STEMI Procedures - Arterial Line No standard instances Consent Obtained: emergent situation Technique Used: other Additional Comments: US guided, was able to puncture artery however unable to successfully thread wire. Pressure was held directly over site without hematoma formation. - Central Line Placement Right Femoral Consent Obtained: verbal consent, emergent situation Patient Placed on Monitor/Pulse Ox: Yes MD Prep: mask, gloves Central Line Prep: Chlorhexidine scrub, sterile drapes applied Local Anesthesia Used: Lidocaine 1% Amount of Anesthesia Used (mls): 2 Ultrasound Used for Placement: Yes Central Line Lumen Inserted: triple Bloods Obtained for Lab: No Central Line Position: good blood return, all ports aspirated, flushed, capped, sutured in place with 2-0 silk Dressing Applied: Tegaderm Patient Tolerated Procedure: well Complications: none Medical Decision Making - Medical Decision Making Was pt. sent in by a medical professional or institution (MONICA Taveras, MECH[employer]IC WELDER TRUCK [employer]IVER, urgent care, hospital, or fdc...) When possible be specific @ -No Did you speak to anyone other than the patient for history (EMS, parent, family, police, friend...)? What history was obtained from this source @ -No I spoke with EMS personnel who states that patient had severe onset lower abdominal pain this morning was found sitting on the floor of her bathroom at her . Patient's vital signs were within acceptable limits on their arrival, patient was noted to be hyperglycemic without history of diabetes. She is not on blood thinners. Did you review nursing and triage notes (agree or disagree)? Why? @ -I reviewed nursing and triage notes Differential Diagnosis (chest pain, altered mental status, abdominal pain women, abdominal pain men, vaginal bleeding, weakness, fever, dyspnea, syncope, headache, dizziness, GI bleed, back pain, seizure, CVA, palpatations, mental health, musculoskeletal)? @Differential Abdominal Pain Women: Appendicitis, Cholecystitis, diverticulosis, ischemic bowel, pancreatitis, hepatitis, UTI, gastroenteritis, AAA, incarcerated hernia, bowel obstruction, constipation, inflammatory bowel, hepatitis, peptic ulcer disease, splenic infarction, perforated viscus, vulvitis, ovarian torsion, PID, kidney stone, placenta abruption, this is not meant to be an all-inclusive list EKG interpreted by me (3pts min.). @ -As above CT interpreted by me (1pt min.). There appears to be a large fluid collection beginning in the RUQ of the abdomen without active fluid extravaseation U/S interpreted by me (1pt. min.). @ -None done What testing was considered but not performed or refused? (CT, X-rays, U/S, labs)? Why? @ -None What meds were considered but not given or refused? Why? @ -None Did you discuss the management of the patient with other professionals (professionals i.e. MONICA Taveras, MECHANIC WELDER TRUCK DRIVER, lab, RT, psych nurse, social science instructor, elevator builder, teacher, commanding officer motorized squad, case maker)? Give summary @Yes, Dr. King and Dr. Helton, please see below Was smoking cessation discussed for >3mins.? @ -No Was critical care preformed (if so, how long)? 75 minutes Were there social determinants of health that impacted care today? How? (Homelessness, low income, unemployed, alcoholism, drug addiction, trans portation, low edu. Level, literacy, decrease access to med. care, custodial, rehab)? @ -No Was there de-escalation of care discussed even if they declined (Discuss DNR or withdrawal of care, Hospice)? @ -No What co-morbidities impacted this encounter? (DM, HTN, Smoking, COPD, CAD, Cancer, CVA, ARF, Chemo, Hep., AIDS, mental health diagnosis, sleep apnea, morbid obesity)? GERD, HTN, HLD Was patient admitted / discharged? Hospital course, mention meds given and route, prescriptions, significant lab abnormalities, going to OR and other pertinent info. @Admission to critical care-patient is a 69-year-old female presenting today for the sudden onset lower abdominal pain early this morning. On arrival patient is pale, diaphoretic and ill-appearing. She is drowsy but awakens to voice. Abdomen is mildly distended and diffusely tender with active bowel sounds. Bedside ultrasound shows no free fluid in the abdomen, there is no pulsatile mass or other findings consistent with ruptured AAA. Patient has 1+ pulses in all 4 extremities and is ill-appearing. Narrow pulse pressure on arrival though stable blood pressure. Not tachycardic or hypoxic. Stat CT was ordered, prior to transport blood pressure dropped to 80/20. O- blood were ordered out of concern for intra-abdominal hemorrhage given patient's pallor and sudden onset abdominal pain. 2 L IV fluid were pressure bolused and with improved blood pressure. Patient was transferred to CT scanner and that it did appear to show large fluid collection without active contrast extraversation or signs of aortic pathology. I was concerned for ruptured bowel so paged Dr. King, animal nutrition teacher general surgery who immediately responded. CT read currently pending however discussed concerns for acute intraabdominal surgical pathology with Dr. King, who kindly agreed to evaluate the patient. Requested return call with final CT read in case Vascular Surgery needs to become involved. On reassessment patient remains hypotensive, worsening pallor. I remain concerned that the area of concern on CT was hemorrhagic so MTP was activated. Patient's family arrived at bedside and I updated them to concerns for acute intra-abdominal pathology and patient's critically ill status. Levophed was ordered and a central line was placed by myself. Dr. King arrived at bedside, kindly evaluated the patient, recommends maintenance fluids, broad-spectrum antibiotics, suspect intra-abdominal infection as opposed to hemorrhage. Requested arterial line placement, I attempted to place arterial line however on first attempt was unable to place so Dr. King took over and was able to successfully place femoral art line. Dr. King was able to speak with radiology-based on that discussion Dr. King became more concerned for septic shock as opposed to hemorrhagic so requested addition of vasopression, cancellation of MTP. MTP cancelled by myself. Dr. King to take pt to the OR for an ex lap, appreciate coordination of care. Updated pt's family to findings and plan of care. With blood product administration and vasopressors, pt's vital signs and mentation did improve. CT was ultimately significant for a "9.5 x 20.4 x 20.5 mesenteric hematoma with a total volume loss of 2.08 L without visualized evidence of arterial extravesation, note etiology indeterminate and can be caused by trauma. No evidence of aneurysm or aneurysm rupture. Other causes could be due to antiplatelet or anticoagulation therapy or recent surgical procedure." When asked, patient's denies patient having any recent trauma or falls, she is not on blood thinners. No recent surgical procedures. He states that she has been coughing frequently. Case was also discussed with Dr. Helton as patient will go to the ICU after OR. Dr. Helton questioned need for vascular consult, however Dr. King was contacted and states no need for vascular consult at this time. Patient transported to the OR in stabilized but critical condition. Undiagnosed new problem with uncertain prognosis? @ -No Drug Therapy requiring intensive monitoring for toxicity (Heparin, Nitro, Insulin, Cardizem)? @ -No Were any procedures done? @Central line placement, attempted arterial line placement Diagnosis/symptom? @ -Mesenteric Hematoma, hemorrhagic shock, septic shock Acute, or Chronic, or Acute on Chronic? acute Uncomplicated (without systemic symptoms) or Complicated (systemic symptoms)? complicated Side effects of treatment? @ -No Exacerbation, Progression, or Severe Exacerbation? @ -No Poses a threat to life or bodily function? How? (Chest pain, [place], [place], pneumonia, PE, COPD, DKA, ARF, appy, cholecystitis, CVA, Diverticulitis, Homicidal, Suicidal, threat to staff... and all critical care pts) Yes - Lab Data Result diagrams: 08/23/24 04:45 08/23/24 04:45 Lab Results 08/23/24 08/23/24 08/23/24 Range/Units 04:40 04:45 04:45 WBC 13.8 H (3.8-10.6) k/uL RBC 3.09 L (3.80-5.40) m/uL Hgb 9.9 L (11.4-16.0) gm/dL Hct 30.6 L (34.0-46.0) % MCV 99.1 (80.0-100.0) fL MCH 32.0 (25.0-35.0) pg MCHC 32.3 (31.0-37.0) g/dL RDW 12.7 (11.5-15.5) % Plt Count 297 (150-450) k/uL MPV 8.5 Neutrophils % Not Reportable Lymphocytes % Not Reportable Monocytes % Not Reportable Eosinophils % Not Reportable Basophils % Not Reportable Neutrophils # Not Reportable Lymphocytes # Not Reportable Monocytes # Not Reportable Eosinophils # Not Reportable Basophils # Not Reportable PT 10.8 (10.0-12.5) sec INR 1.0 (<1.2) APTT 21.0 L (22.0-30.0) sec Sodium (137-145) mmol/L Potassium (3.5-5.1) mmol/L Chloride (98-107) mmol/L Carbon Dioxide (22-30) mmol/L Anion Gap mmol/L BUN (7-17) mg/dL Creatinine (0.52-1.04) mg/dL Est GFR (CKD-EPI)AfAm (>60 ml/min/1.73 sqM) Est GFR (CKD-EPI)NonAf (>60 ml/min/1.73 sqM) Glucose (74-99) mg/dL POC Glucose (mg/dL) 367 H (70-110) mg/dL POC Glu [facility] ID [place] Plasma Lactic Acid [place] (0.7-2.0) mmol/L Calcium (8.4-10.2) mg/dL Total Bilirubin (0.2-1.3) mg/dL AST (14-36) U/L ALT (4-34) U/L Alkaline Phosphatase (38-126) U/L Troponin I (0.000-0.034) ng/mL Total Protein (6.3-8.2) g/dL Albumin (3.5-5.0) g/dL Amylase (30-110) U/L Lipase (23-300) U/L Urine Color Urine Appearance (Clear) Urine pH (5.0-8.0) Ur Specific [place] (1.001-1.035) Urine Protein (Negative) Urine Glucose (UA) (Negative) Urine Ketones (Negative) Urine Blood (Negative) Urine Nitrite (Negative) Urine Bilirubin (Negative) Urine Urobilinogen (<2.0) mg/dL Ur Leukocyte Esterase (Negative) Urine RBC (0-5) /hpf Urine WBC (0-5) /hpf Urine Mucus (None) /hpf Blood Type Blood Type Recheck Bld Type Recheck Status Antibody Screen Crossmatch Spec Expiration Date 08/23/24 08/23/24 08/23/24 Range/Units 04:45 04:45 04:45 WBC (3.8-10.6) k/uL RBC (3.80-5.40) m/uL Hgb (11.4-16.0) gm/dL Hct (34.0-46.0) % MCV (80.0-100.0) fL MCH (25.0-35.0) pg MCHC (31.0-37.0) g/dL RDW (11.5-15.5) % Plt Count (150-450) k/uL MPV Neutrophils % Lymphocytes % Monocytes % Eosinophils % Basophils % Neutrophils # Lymphocytes # Monocytes # Eosinophils # Basophils # PT (10.0-12.5) sec INR (<1.2) APTT (22.0-30.0) sec Sodium 132 L (137-145) mmol/L Potassium 4.7 (3.5-5.1) mmol/L Chloride 103 (98-107) mmol/L Carbon Dioxide 18 L (22-30) mmol/L Anion Gap 11 mmol/L BUN 26 H (7-17) mg/dL Creatinine 1.08 H (0.52-1.04) mg/dL Est GFR (CKD-EPI)AfAm 60 (>60 ml/min/1.73 sqM) Est GFR (CKD-EPI)NonAf 52 (>60 ml/min/1.73 sqM) Glucose 348 H (74-99) mg/dL POC Glucose (mg/dL) (70-110) mg/dL POC Glu [facility] ID Plasma Lactic Acid Peter 6.2 H* (0.7-2.0) mmol/L Calcium 8.4 (8.4-10.2) mg/dL Total Bilirubin 0.7 (0.2-1.3) mg/dL AST 17 (14-36) U/L ALT 17 (4-34) U/L Alkaline Phosphatase 46 (38-126) U/L Troponin I <0.012 (0.000-0.034) ng/mL Total Protein 4.7 L (6.3-8.2) g/dL Albumin 2.8 L (3.5-5.0) g/dL Amylase 57 (30-110) U/L Lipase 352 H (23-300) U/L Urine Color Urine Appearance (Clear) Urine pH (5.0-8.0) Ur Specific [place] (1.001-1.035) Urine Protein (Negative) Urine Glucose (UA) (Negative) Urine Ketones (Negative) Urine Blood (Negative) Urine Nitrite (Negative) Urine Bilirubin (Negative) Urine Urobilinogen (<2.0) mg/dL Ur Leukocyte Esterase (Negative) Urine RBC (0-5) /hpf Urine WBC (0-5) /hpf Urine Mucus (None) /hpf Blood Type Blood Type Recheck Bld Type Recheck Status Antibody Screen Crossmatch Spec Expiration Date 08/23/24 08/23/24 Range/Units 04:45 06:44 WBC (3.8-10.6) k/uL RBC (3.80-5.40) m/uL Hgb (11.4-16.0) gm/dL Hct (34.0-46.0) % MCV (80.0-100.0) fL MCH (25.0-35.0) pg MCHC (31.0-37.0) g/dL RDW (11.5-15.5) % Plt Count (150-450) k/uL MPV Neutrophils % Lymphocytes % Monocytes % Eosinophils % Basophils % Neutrophils # Lymphocytes # Monocytes # Eosinophils # Basophils # PT (10.0-12.5) sec INR (<1.2) APTT (22.0-30.0) sec Sodium (137-145) mmol/L Potassium (3.5-5.1) mmol/L Chloride (98-107) mmol/L Carbon Dioxide (22-30) mmol/L Anion Gap mmol/L BUN (7-17) mg/dL Creatinine (0.52-1.04) mg/dL Est GFR (CKD-EPI)AfAm (>60 ml/min/1.73 sqM) Est GFR (CKD-EPI)NonAf (>60 ml/min/1.73 sqM) Glucose (74-99) mg/dL POC Glucose (mg/dL) (70-110) mg/dL POC Glu [facility] ID Plasma Lactic Acid Peter (0.7-2.0) mmol/L Calcium (8.4-10.2) mg/dL Total Bilirubin (0.2-1.3) mg/dL AST (14-36) U/L ALT (4-34) U/L Alkaline Phosphatase (38-126) U/L Troponin I (0.000-0.034) ng/mL Total Protein (6.3-8.2) g/dL Albumin (3.5-5.0) g/dL Amylase (30-110) U/L Lipase (23-300) U/L Urine Color Colorless Urine Appearance Clear (Clear) Urine pH 7.0 (5.0-8.0) Ur Specific [place] 1.033 (1.001-1.035) Urine Protein 1+ H (Negative) Urine Glucose (UA) 3+ H (Negative) Urine Ketones Negative (Negative) Urine Blood Small H (Negative) Urine Nitrite Negative (Negative) Urine Bilirubin Negative (Negative) Urine Urobilinogen <2.0 (<2.0) mg/dL Ur Leukocyte Esterase Large H (Negative) Urine RBC 14 H (0-5) /hpf Urine WBC 36 H (0-5) /hpf Urine Mucus Rare H (None) /hpf Blood Type A Negative Blood Type Recheck A Neg Bld Type Recheck Status No Antibody Screen NEGATIVE Crossmatch See Detail Spec Expiration Date 08/26/20242344 Disposition Clinical Impression: Mesenteric hematoma, Hemorrhagic shock, Septic shock Disposition: ADMITTED IP TO THIS HOSP Condition: Critical
[2024-08-23] MEDS: SODIUM CHLORIDE 0.9% 1,000 ML IV STA (05:35)
[2024-08-23 05:44] LABS: ALT 17 U/L (4-34); AST 17 U/L (14-36); African American GFR (CKD) 60 (>60 ml/min/1.73 sqM); Albumin 2.8 g/dL (3.5-5.0); Alkaline Phosphatase 46 U/L (38-126); Amylase 57 U/L (30-110); Anion Gap 11 mmol/L; Blood Urea Nitrogen 26 mg/dL (7-17); Calcium 8.4 mg/dL (8.4-10.2); Carbon Dioxide 18 mmol/L (22-30); Chloride 103 mmol/L (98-107); Glucose 348 mg/dL (74-99); Lipase 352 U/L (23-300); Non-African American GFR(CKD) 52 (>60 ml/min/1.73 sqM); Potassium 4.7 mmol/L (3.5-5.1); Sodium 132 mmol/L (137-145); Total Bilirubin 0.7 mg/dL (0.2-1.3); Total Protein 4.7 g/dL (6.3-8.2)
[2024-08-23] MEDS: NOREPINEPHRINE 4 MG in SODIUM CHLORIDE 0.9% 250 ML IV SCH (05:55)
[2024-08-23 06:08] LABS: Prothrombin Time 10.8 sec (10.0-12.5)
[2024-08-23] MEDS: CEFEPIME 2 GM in SODIUM CHLORIDE 0.9% 100 ML IVPB STA (06:09)
[2024-08-23 06:14] LABS: HCT 30.6 % (34.0-46.0); HGB 9.9 gm/dL (11.4-16.0); MCHC 32.3 g/dL (31.0-37.0); MCV 99.1 fL (80.0-100.0); Mean Platelet Volume 8.5; Platelet Count 297 k/uL (150-450); RBC 3.09 m/uL (3.80-5.40); RDW 12.7 % (11.5-15.5); WBC 13.8 k/uL (3.8-10.6)
[2024-08-23] MEDS: SODIUM CHLORIDE 0.9% 1,000 ML IV SCH (06:17)
--- NOTE | 2024-08-23 06:21 | CT ---
EXAM: CT Angiography Chest, Abdomen and Pelvis With Intravenous Contrast CLINICAL HISTORY: ITS.REASON CT Reason: sudden onset low ab pain, pale, sweaty TECHNIQUE: Axial computed tomographic angiography images of the chest, abdomen and pelvis with intravenous contrast. This CT exam was performed using one or more of the following dose reduction techniques: automated exposure control, adjustment of the mA and/or kV according to patient size, and/or use of iterative reconstruction technique. Additional imaging was obtained to the mid thighs. MIP reconstructed images were created and reviewed. COMPARISON: No relevant prior studies available. FINDINGS: VASCULATURE: Aorta: No evidence of aortic aneurysm or dissection. Atherosclerotic disease. Pulmonary arteries: Unremarkable as visualized. No pulmonary embolism is identified. Great vessels of aortic arch: No acute findings. No dissection. No arterial occlusion or significant stenosis. Celiac trunk and mesenteric arteries: No acute findings. No occlusion or significant stenosis. Renal arteries: No acute findings. No occlusion or significant stenosis. Iliac arteries: No acute findings. No occlusion or significant stenosis. Other arteries: 9.5 x 20.4 x 20.5 cm mesenteric hematoma with a total volume of 2.08 L without visualized evidence of arterial extravasation. Please note that the etiology of this is indeterminate and can be caused by trauma. No evidence of aneurysm or aneurysm rupture. Other causes could be due to antiplatelet or anticoagulation therapy. Recent surgical procedure also possible. Recommend surgical consultation. CHEST: Lungs: Mild dependent atelectatic changes. No mass. No consolidation. Pleural space: Unremarkable. No significant effusion. No pneumothorax. Heart: Coronary artery calcium effusions. Cardiomegaly. ABDOMEN: Liver: Unremarkable. No mass. Gallbladder and bile ducts: Unremarkable. No calcified stones. No ductal dilation. Pancreas: Unremarkable. No ductal dilation. No mass. Spleen: Unremarkable. No splenomegaly. Adrenals: Unremarkable. No mass. Kidneys and ureters: Bilateral renal cysts with other hypodensities which may relate to cysts. These do not necessarily require further follow-up. Renal calcifications which may relate to obstructive calculi and vascular calcifications. No hydronephrosis. No solid mass. Stomach and bowel: Sigmoidectomy changes. Submucosal fat deposition within the cecum extending to the hepatic flexure which can be seen with chronic inflammation. Enlarged body habitus, amongst other etiologies, also possible. PELVIS: Appendix: No findings to suggest acute appendicitis. Bladder: Diffuse bladder wall thickening which is favored to relate to underdistention but cystitis is less likely. Reproductive: Hysterectomy changes. CHEST, ABDOMEN and PELVIS: Intraperitoneal space: Unremarkable. No significant fluid collection. No free air. Bones/joints: Degenerative changes in the spine. No acute fracture. No dislocation. Soft tissues: Patent visualized vessels of the bilateral lower extremities. Please note this was obtained to the mid thighs. Lymph nodes: Unremarkable. No enlarged lymph nodes. IMPRESSION: 1. 9.5 x 20.4 x 20.5 cm mesenteric hematoma with a total volume of 2.08 L without visualized evidence of arterial extravasation. Please note that the etiology of this is indeterminate and can be caused by trauma. No evidence of aneurysm or aneurysm rupture. Other causes could be due to antiplatelet or anticoagulation therapy. Recent surgical procedure also possible. Recommend surgical consultation. 2. Sigmoidectomy changes. 3. Hysterectomy changes. 4. Submucosal fat deposition within the cecum extending to the hepatic flexure which can be seen with chronic inflammation. Enlarged body habitus, amongst other etiologies, also possible. 5. Diffuse bladder wall thickening which is favored to relate to underdistention but cystitis is less likely. 6. No evidence of aortic aneurysm or dissection. 7. No other acute findings. 8. Incidental findings as described.
[2024-08-23] MEDS: metroNIDAZOLE-NS PMX 500 MG in SALINE 1 100ML.BAG IVPB STA (06:23)
[2024-08-23] MEDS: NOREPINEPHRINE 8 MG in SODIUM CHLORIDE 0.9% 250 ML IV ONE (06:24)
[2024-08-23] MEDS: VASOPRESSIN 20 UNIT in SODIUM CHLORIDE 0.9% 50 ML IV SCH (06:25)
[2024-08-23] MEDS ORDERED: VANCOMYCIN IV PER PHARMACY 1 EACH MISC MISCELLANE PRN (06:40)
[2024-08-23] MEDS: ONDANSETRON 4 MG/2 ML VIAL IVP STA (06:40)
[2024-08-23] MEDS ORDERED: NALOXONE 0.4 MG/ML 1 ML VIAL IV PRN (06:51)
[2024-08-23] MEDS ORDERED: Magnesium Replacement Protocol 1 EACH MISC MISCELLANE PRN (06:51)
[2024-08-23] MEDS ORDERED: Phosphorus Replacement Protoco 1 EACH MISC MISCELLANE PRN (06:51)
[2024-08-23] MEDS ORDERED: Potassium Replacement Protocol 1 EACH MISC MISCELLANE PRN (06:51)
[2024-08-23 07:27] LABS: Appearance,Urine Clear (Clear); Bilirubin,Urine Negative (Negative); Blood,Urine Small (Negative); Color,Urine Colorless; Glucose,Urine (UA) 3+ (Negative); Ketones,Urine Negative (Negative); Leukocyte Esterase,Urine Large (Negative); Mucus,Urine Rare /hpf; Nitrite,Urine Negative (Negative); Protein,Urine 1+ (Negative); RBC,Urine 14 /hpf (0-5); Specific Gravity,Urine 1.033 (1.001-1.035); Urobilinogen,Urine <2.0 mg/dL (<2.0); WBC,Urine 36 /hpf (0-5)
--- NOTE | 2024-08-23 07:32 | XR ---
EXAMINATION TYPE: XR chest 1V portable DATE OF EXAM: 08/23/2024 6:40 AM COMPARISON: 12/13/2022 CLINICAL INDICATION: Female, 69 years old with history of PRE OP, TECHNIQUE: XR chest 1V portable view(s) obtained. FINDINGS: The heart size is normal. The pulmonary vasculature is normal. The lungs are clear. The chin obscures the lung apices. IMPRESSION: 1. No acute pulmonary process. [facility], , 08/23/2024 7:30 AM
[2024-08-23 07:44] LABS: Lymphocytes # (M) 3.31 k/uL (1.0-4.8); Monocytes # (M) 0.83 k/uL (0-1.0); Neutrophils # (M) 9.66 k/uL (1.3-7.7); Neutrophils % (M) 70 %; Nucleated Red Blood Cells 0 /100 WBC (0-0); Total Cells Counted 100
[2024-08-23] MEDS ORDERED: ALBUMIN HUMAN 5% (25gm) 500 ML VIAL IVPB ONE (07:45)
[2024-08-23] MEDS ORDERED: ETOMIDATE 2 MG/ML 10 ML VIAL ONE (07:45)
[2024-08-23] MEDS ORDERED: SUCCINYLCHOLINE CHLORIDE 200 MG/10 ML VIAL IV ONE (07:45)
[2024-08-23] MEDS ORDERED: MIDAZOLAM 2 MG/2 ML VIAL ONE ×2 (07:45→13:18)
[2024-08-23] MEDS ORDERED: NOREPINEPHRINE 1 MG/ML 4 ML VIAL IV ONE ×2 (07:45→13:18)
[2024-08-23] MEDS ORDERED: ALBUMIN HUMAN 5% (12.5gm) 250 ML BOTTLE IVPB ONE ×2 (07:45→13:18)
[2024-08-23] MEDS ORDERED: EPINEPHrine 10 ML SYRINGE (0.1 MG/ML) ONE (07:45)
[2024-08-23] MEDS ORDERED: KETAMINE HCL IN 0.9 % NACL 50 MG/5 ML SYRINGE ONE (07:45)
[2024-08-23] MEDS ORDERED: ROCURONIUM 10 MG/ML (5 ML VIAL) IV ONE (07:45)
[2024-08-23] MEDS ORDERED: PHENYLEPHRINE 10 MG/ML VIAL ONE (07:45)
[2024-08-23] MEDS ORDERED: CALCIUM CHLORIDE 100 MG/ML 10 ML SYRINGE ONE ×2 (07:45→13:18)
[2024-08-23] MEDS ORDERED: SODIUM BICARB 8.4% 50 ML SYR (1 MEQ/ML) ONE ×2 (07:45→13:18)
[2024-08-23 07:47] LABS: Glucose,Whole Blood 411 mg/dL (70-110)
[2024-08-23] MEDS: SODIUM CHLORIDE 0.9% 1,000 ML IV ONE ×2 (07:47→10:50)
[2024-08-23] MEDS: THROMBIN (BOVINE) 5,000 UNIT VIAL TOPICAL ONE ×2 (09:34→14:20)
[2024-08-23 10:49] LABS: Glucose,Whole Blood 308 mg/dL (70-110)
--- NOTE | 2024-08-23 10:50 | P.ANPRN ---
Procedure Note - Anesthesia - Invasive Line Right Arterial Line Time Out Performed: Yes Date of Procedure: 08/23/24 Time of Procedure: 09:10 Location of Patient: OR Preparation: Sterile Prep, Sterile Dressing Central Line Location: Internal Jugular Ultrasound Used: No Purpose - Visualization and Identification of Vasculature: No Image Stored and Saved: No Narrative: Invasive line placement per sterile protocol utilized.
--- NOTE | 2024-08-23 11:21 | P.OP ---
Date of Procedure: 08/23/24 Description of Procedure: Preoperative diagnosis: Intraoperative consultation large retroperitoneal hematoma Postoperative diagnosis: Same, avulsion of retroperitoneal vein Procedure: Exploration of abdomen, control of hemorrhage, evacuation of hematoma, suture ligation of venous bleeding Surgeon: Fernando Olmos EBL: See full operative report Operative indication and findings: Patient is a 69-year-old female was asked to see intraoperatively for concerns of a large retroperitoneal hematoma. She was initially admitted due to severe pain and hypotension. The initial thought was that this would be a small contributing vessel but upon initial exploratory laparotomy by primary surgeon a large intraperitoneal hematoma was found. Due to the patient's significant hypotension and distress the decision was made for vascular surgery and upon my evaluation the abdomen was previously open, there was a very large retroperitoneal hematoma. There is no signs of active bleeding however due to the size and continued worsening and unstable pressures the decision was made to enter this area as it likely was causing a preload issue. The area of largest experience was entered sharply with scalpel and carried down to the level of the large hematoma. It was evacuated with suction and manual e xtraction. There was a significant amount of hematoma in this location. The area was then evaluated for bruising or bleeding, there was some generalized ooze over the level of the deep portion there appeared to be an avulsion of the vein, at this point inability to determine if it was the internal iliac off of the iliac vein versus a lumbar or sacral vein off the vena cava however the distal was suture-ligated with no evidence of further backbleeding. The area was then reevaluated and there is appear to be some bleeding from the deep portions. A 4-0 running Prolene was utilized and there was significant improvement of the bleeding. At that point there was mild oozing through generalized tissue in the plan and thought was that likely the patient has generalized oozing from the areas of hematoma at this time. During this, the right femoral central line was discontinued and transferred to the IJ central line. At this point thrombin and Gelfoam as well as Surgicel was used and the a ran was then packed. At this point the pressures did appear to significantly improve and stabilized to some degree with the anesthesia. Again at this point the decision was made to allow for further aggressive resuscitation. The abdomen was left open and ABThera was placed.
[2024-08-23 11:38] LABS: ABG Base Excess -20.2 mmol/L; ABG Oxygen Saturation 99.7 % (94-97); ABG PCO2 36 mmHg (35-45); ABG PO2 326 mmHg (83-108); ABG TCO2 10 mmol/L (19-24); Allen Test Performed? Yes
[2024-08-23 11:41] LABS: ABG HCO3 9 mmol/L (21-25); ABG PH 7.02 (7.35-7.45)
[2024-08-23] MEDS: SODIUM BICARB 8.4% 50 ML SYR (1 MEQ/ML) IV STA ×2 (11:45→12:21)
[2024-08-23] MEDS: VANCOMYCIN 1,500 MG in SODIUM CHLORIDE 0.9% 500 ML 500 ML IVPB ONE (12:51)
[2024-08-23] MEDS: TRANEXAMIC 1,000 MG/100ML-NACL 1,000 MG in SALINE 1 100ML.BAG IVPB PRN (12:59)
[2024-08-23] MEDS: DEXTROSE 5% IN WATER 1,000 ML with SODIUM BICARB (1 MEQ/ML) 150 ML IV SCH (13:00)
[2024-08-23] MEDS ORDERED: VASOPRESSIN 20 UNIT/ML 1 ML VIAL ONE (13:18)
[2024-08-23] MEDS ORDERED: VECURONIUM 10 MG VIAL IV ONE (13:18)
--- NOTE | 2024-08-23 13:18 | P.CNPUL ---
History of Present Illness Consult date: 08/23/24 Chief complaint: Acute bleeding, retroperitoneal History of present illness: This is a 69-year-old female patient presented emerged part because of abdominal pain, sudden onset. No reported GI bleeding. No hematemesis. No bright red blood per rectum. No abdominal trauma. The patient presented to the emergency department. She was hypothermic. She was hypotensive. Her initial blood counts showed a new onset anemia with a hemoglobin 9.9. White cell count is at 13.8. Platelet count was 297. Normal coagulation profile. BUN was 26 with a creatinine of 1.08 and a sodium of 1 was 132. Initial lactic acid level was at 6.2. Troponins were negative. The patient underwent a CTA of the thoracic and abdominal aorta and the patient was found to have a large 20 x 9 cm hematoma in the retroperitoneum and estimated volume was around 2 L without evidence of any arterial extravasation. No evidence of any aneurysmal rupture. She has un dergone previous bowel surgery/sigmoidectomy and she is known to have previous history of ulcerative colitis. She has also undergone a hysterectomy. Based on those findings, the patient was started on fluid resuscitation. She was ordered blood and she was taken to the operating room. Intraoperatively, the patient was found to have a large retroperitoneal hematoma and expiration of the abdomen and evacuation of the hematoma was performed and the source of the bleeding was a retroperitoneal vein and there was avulsion and suture ligation of the venous bleed was done. During the course of her ICU and OR stay, the patient was aggressively resuscitated with blood products. The patient currently has received a total of 11 units of packed RBC, 3 units of fresh frozen plasma, 2 units of platelets, and 2 units of cryoprecipitate. The patient continues to be hemodynamically unstable and hypotensive and the patient also has gone into atrial fibrillation with rapid ventricular response. At this point in time, the patient is intubated on mechanical ventilator. She is currently in the int ensive care unit. The bleeding obviously is not controlled. The patient continues to have bruising from the abdominal wound and the wound VAC has been applied. She has a right femoral triple-lumen catheter which is not currently being used. She has also had a right IJ triple-lumen catheter in place. General surgery and vascular surgery are both on the case and the patient is being considered for transfer for embolization to [facility]. Meanwhile, the patient remains on mechanical ventilator. The blood gases showed a pH of 7.02 with a pCO2 of 36 and pO2 329. This was an FiO2 of 100%. Rate was brought up to 24 and the patient has a tidal volume of 450, FiO2 is at 100% with a PEEP of 5 and FiO2 is being gradually weaned off. The chest x-ray done preoperatively showed no acute abnormalities. At this point in time, the patient remains in shock, on norepinephrine and vasopressin. The patient's comorbid conditions include history of ulcerative colitis with previous colectomy, history of nephrolithiasis, COPD, hypertension hyperlipidemia acid reflux and osteoarthritis. Review of Systems ROS unobtainable: due to endotracheal tube Past Medical History Past Medical History: Eye Disorder, GERD/Reflux, Hyperlipidemia, Hypertension, Osteoarthritis (OA) Additional Past Medical History / Comment(s): Ulcerative Colitis/IBS, diverticulitis, benign colon polyps, hs kidney stones, varicose vein, possible COPD, small cataracts, hx high heart rate. History of Any Multi-Drug Resistant Organisms: None Reported Past Surgical History: Adenoidectomy, Bowel Resection, Cholecystectomy, Heart Catheterization, Hysterectomy, Orthopedic Surgery, Tonsillectomy Additional Past Surgical History / Comment(s): Lithotripsies, colonoscopies, right knee arthroscopy. Past Anesthesia/Blood Transfusion Reactions: Motion Sickness, Postoperative Nausea & Vomiting (PONV) Past Psychological History: Anxiety Smoking Status: Former smoker Past Alcohol Use History: None Reported Past Drug Use History: Marijuana - Past Family History Mother Family Medical History: Cancer Father Family Medical History: Myocardial Infarction (NH) Additional Family Medical History / Comment(s): Father at the age of 83 yrs from a NH. Medications and Allergies Home Medications Medication Instructions Recorded Confirmed Type Atorvastatin [Lipitor] 20 mg PO DAILY 05/11/16 08/23/24 History Montelukast [Singulair] 10 mg PO DAILY 03/12/19 08/23/24 History Valsartan 160 mg PO BID 11/16/22 08/23/24 History Ezetimibe [Zetia] 10 mg PO DAILY 12/13/22 08/23/24 History Escitalopram [Lexapro] 20 mg PO DAILY 11/15/23 08/23/24 History Mesalamine [Asacol Hd] 1,600 mg PO TID 11/15/23 08/23/24 History Metoprolol Succinate (ER) [Toprol 50 mg PO DAILY 11/15/23 08/23/24 History Xl] Albuterol Sulfate [Ventolin HFA] 2 puff INHALATION RT-QID 08/23/24 08/23/24 History Omeprazole 20 mg PO DAILY 08/23/24 08/23/24 History Allergies Allergy/AdvReac Type Severity Reaction Status Date / Time morphine AdvReac Nausea & Verified 08/23/24 11:28 Vomiting sulfamethoxazole AdvReac Rash/Hives Verified 08/23/24 11:28 [From Bactrim] trimethoprim [From Bactrim] AdvReac Rash/Hives Verified 08/23/24 11:28 Physical Exam Vitals: Vital Signs Temp Pulse Resp BP Pulse Ox FiO2 08/23/24 11:32 100 08/23/24 11:14 100 08/23/24 08:32 142 H 24 113/58 08/23/24 07:28 94.8 F L 112 H 26 H 80/40 98 08/23/24 07:00 95.2 F L 120 H 28 H 99/78 97 08/23/24 06:30 94.8 F L 91 16 117/101 100 08/23/24 06:20 78 16 126/88 100 08/23/24 06:10 80 16 135/78 100 08/23/24 06:04 95.2 F L 88 16 113/68 99 08/23/24 06:00 100 16 107/66 94 L 08/23/24 05:59 95 F L 101 H 16 107/66 98 08/23/24 05:57 94.8 F L 101 H 16 101/52 100 08/23/24 05:54 94.5 F L 105 H 16 69/42 97 08/23/24 05:50 105 H 16 71/53 97 08/23/24 05:42 93.4 F L 103 H 16 71/49 98 08/23/24 05:35 97 16 73/46 97 08/23/24 05:29 103 H 16 58/22 94 L 08/23/24 05:28 97.4 F L 08/23/24 05:15 102 H 16 89/67 95 08/23/24 05:05 75 14 111/51 97 08/23/24 04:41 96.4 F L 86 14 142/127 96 Intake and Output 08/22/24 08/23/24 08/23/24 22:59 06:59 14:59 Intake Total 1240 3685.346 Balance 1240 3685.346 Intake: Intake, IV Titration 180.346 Amount Norepinephrine 4 mg In 160.073 Sodium Chloride 0.9% 250 ml @ 0.03 MCG/KG/MIN 9. 851 mls/hr IV .Q24H SEBASTIEN Rx#:[id number] Vasopressin 20 unit In 20.273 Sodium Chloride 0.9% 50 ml @ 0.03 UNITS/MIN 4.59 mls/hr IV .[id number] SEBASTIEN Rx# :[id number] Blood Product 1240 3505 Ffp 24 Pher Acda Cnt2 223 Unit [id number] Ffp 24 Pher Acda Cnt2 199 Unit [id number] Ffp 24 Pher Acda Cnt2 206 Unit [id number] Platelet Pheresis Pas 261 Psoralen Unit [id number] Platelet Pheresis Pas 310 Psoralen Unit [id number] Pooled Cryoprecipitate 94 Unit [id number] Pooled Cryoprecipitate 96 Unit [id number] Rc As-1 Unit 310 [id number] Rc As-1 Unit 310 [id number] Rc As-1 Unit 283 [id number] Rc As-1 Unit 310 [id number] Rc As-1 Unit 310 [id number] Rc As-1 Unit 310 [id number] Rc As-1 Unit 310 [id number] Rc As-1 Unit 310 [id number] Rc As-1 Unit 310 [id number] Rc As-1 Unit 310 [id number] Rc Pheresis As-3 Unit 0 [id number] Rc Pheresis As-3 Unit 283 [id number] Other: Weight 86.183 kg ABP, PAP, CO, CI - Last 8 Hours Arterial Blood Pressure 70/40 Arterial Blood Pressure 298/0 The patient appeared well nourished and normally developed. Vital signs as documented. The patient is not sedated. The patient is unresponsive intubated on mechanical ventilator. Orogastric and orotracheal tube are both in place. She has a right IJ triple-lumen catheter in place. The patient is also hypothermic. Head exam is unremarkable. No scleral icterus or corneal arcus noted. Neck is without jugular venous distension, thyromegaly, or carotid bruits. Carotid upstrokes are brisk bilaterally. Lungs are clear to auscultation and percussion. Cardiac examination shows tachycardia with irregular rhythm consistent with atrial fibrillation with rapid ventricular response Abdominal exam reveals an open abdominal wound with a wound VAC in place and there is ongoing oozing of blood from the abdominal wound with ongoing aspiration of blood through the wound VAC. Extremities are cold and clammy and pulses are quite diminished in all 4 extremities Examination of the skin revealed no evidence of significant rashes, suspicious appearing nevi or other concerning lesions. Neurologically, the patient is unresponsive Results - Laboratory Findings CBC and BMP: 08/23/24 04:45 08/23/24 04:45 ABG ABG pH 7.02 (7.35-7.45) L* 08/23/24 11:30 ABG pCO2 36 mmHg (35-45) 08/23/24 11:30 ABG pO2 326 mmHg (83-108) H 08/23/24 11:30 ABG O2 Saturation 99.7 % (94-97) H 08/23/24 11:30 PT/INR, D-dimer PT 10.8 sec (10.0-12.5) 08/23/24 04:45 INR 1.0 (<1.2) 08/23/24 04:45 Abnormal lab findings: Abnormal Labs 08/23/24 08/23/24 08/23/24 04:40 04:45 04:45 WBC 13.8 H RBC 3.09 L Hgb 9.9 L Hct 30.6 L Neutrophils # (Manual) 9.66 H APTT 21.0 L ABG pH ABG pO2 ABG HCO3 ABG Total CO2 ABG O2 Saturation Hemoglobin Sodium Carbon Dioxide BUN Creatinine Glucose POC Glucose (mg/dL) 367 H Plasma Lactic Acid Peter Total Protein Albumin Lipase Urine Protein Urine Glucose (UA) Urine Blood Ur Leukocyte Esterase Urine RBC Urine WBC Urine Mucus Crossmatch 08/23/24 08/23/24 08/23/24 04:45 04:45 04:45 WBC RBC Hgb Hct Neutrophils # (Manual) APTT ABG pH ABG pO2 ABG HCO3 ABG Total CO2 ABG O2 Saturation Hemoglobin Sodium 132 L Carbon Dioxide 18 L BUN 26 H Creatinine 1.08 H Glucose 348 H POC Glucose (mg/dL) Plasma Lactic Acid Peter 6.2 H* Total Protein 4.7 L Albumin 2.8 L Lipase 352 H Urine Protein Urine Glucose (UA) Urine Blood Ur Leukocyte Esterase Urine RBC Urine WBC Urine Mucus Crossmatch See Detail 08/23/24 08/23/24 08/23/24 06:44 07:45 10:47 WBC RBC Hgb Hct Neutrophils # (Manual) APTT ABG pH ABG pO2 ABG HCO3 ABG Total CO2 ABG O2 Saturation Hemoglobin Sodium Carbon Dioxide BUN Creatinine Glucose POC Glucose (mg/dL) 411 H 308 H Plasma Lactic Acid Peter Total Protein Albumin Lipase Urine Protein 1+ H Urine Glucose (UA) 3+ H Urine Blood Small H Ur Leukocyte Esterase Large H Urine RBC 14 H Urine WBC 36 H Urine Mucus Rare H Crossmatch 08/23/24 11:30 WBC RBC Hgb Hct Neutrophils # (Manual) APTT ABG pH 7.02 L* ABG pO2 326 H ABG HCO3 9 L* ABG Total CO2 10 L ABG O2 Saturation 99.7 H Hemoglobin 7.8 L Sodium Carbon Dioxide BUN Creatinine Glucose POC Glucose (mg/dL) Plasma Lactic Acid Peter Total Protein Albumin Lipase Urine Protein Urine Glucose (UA) Urine Blood Ur Leukocyte Esterase Urine RBC Urine WBC Urine Mucus Crossmatch - Diagnostic Findings Chest x-ray: image reviewed Assessment and Plan Plan: Acute retroperitoneal bleeding with a large retroperitoneal hematoma, status post exploration of the abdomen, evacuation of hematoma and patient was found to have a avulsion of the retroperitoneal vein and suture ligation was performed. Unfortunately, the patient continues to bleed and the procedure itself was not successful and there has been incomplete control of hemorrhage as the patient is currently in the intensive care unit, and again shock. Acute blood loss anemia, received a total of 11 units of packed RBC, 3 units of fresh frozen plasma, 2 units of platelets and 2 units of cryoprecipitate. This is a blood loss anemia. Underlying DIC cannot be completely excluded. Shock, essentially due to blood loss and hypovolemic in nature/hemorrhagic in nature, currently on fluids, blood products and the patient is on norepinephrine/vasopressin. Acute lactic acidosis Acute hypothermia Atrial fibrillation with rapid ventricular response History of ulcerative colitis Hypertension Hyperlipidemia Osteoarthritis History of kidney stones COPD Plan Continue vent support Patient was given a total of 3 doses of sodium bicarb IV push 50 mEq 18 patient started on bicarb infusion Monitor hemodynamics Monitor lactate Continue fluid and resuscitation with blood products, TXA was given. Will need calcium. Monitor hemoglobin The patient is quite unstable. The patient remains on high-dose pressors and she is on a combination of norepinephrine running at 0.5 mcg/kg/min and vasopressin physiologic dose. The patient will be transferred to [facility] for embolization as long as we are able to make transfer and this will depend on her hemodynamic stability. Critical care evaluation done and 40 minutes. Time with Patient: Greater than 30
[2024-08-23] MEDS ORDERED: DEXTROSE 50% SYRINGE 50 ML IVP PRN ×2 (15:29)
--- NOTE | 2024-08-23 15:46 | P.CONS ---
History of Present Illness - Reason for Consult Consult date: 08/23/24 - History of Present Illness This is a 69-year-old female medical history of acid reflux, hypertension, hyperlipidemia, ulcerative colitis, IBS, anxiety and former smoker. Patient comes into the hospital through the emergency center with complaints of sudden onset of abdominal pain patient states that when she went to the bathroom yesterday evening she started having severe lower abdominal pain had a bowel movement that was normal in color and consistency with no reports of rectal bleeding, no hematemesis. No reports of any abdominal trauma. Patient's then found her on the bathroom floor she was too weak to get up. Medical history is taken from the medical chart as patient is currently intubated and sedated in the ICU and family not present at this time. In the ER on presentation Patient was anemic, hypothermic and also hypotensive. Patient was taken for a thoracic aorta CT which revealed a 9.5 x 20.4 x 20.5 cm mesenteric hematoma with a total volume of 2.08 L without visualized evidence of an arterial extravasation. This is indeterminant and cannot be caused by trauma. No evidence of aneurysm or aneurysmal rupture. Other causes could be due to antiplatelet or anticoagulation therapy recent surgical procedure also possible. Recommend surgical consultation. There was sigmoidectomy changes hysterectomy changes. A submucosal fat deposition within the cecum extending to the hepatic flexure which can be seen with chronic inflammation. There is diffuse bladder wall thickening which is favored to relate under distention but cystitis is less likely. No evidence of aortic aneurysm or dissection. No other acute findings. Chest x-ray reveals no acute pulmonary process. Fluid resuscitation was started. Blood transfusion was ordered. Patient was admitted to general surgeon Dr. King and patient was taken to the OR and there was an intraoperative consultation to vascular surgery resulting in exploration of abdomen control of hemorrhage evacuation of hematoma and suture ligation of venous bleeding. Patient was brought to the ICU postoperatively and on the mechanical ventilator. Patient was unstable as blood pressure remains significantly hypotensive, and there was a large amount of blood in the wound vac canister. General surgery and vascular surgery to the bedside. Patient is currently undergoing a large-volume blood transfusion has currently received 14 units of packed red blood cells, 4 of FFP, 2 units of platelets, 2 units of cryoprecipitate, with 2 additional units of PRBCs ordered as well as 3 units of cryoprecipitate. Internal medicine was consulted and patient is evaluated in the intensive care unit and plans for transfer undergoing to tertiary care center with accepting physician of Dr. Bladimir Mark at [facility] and currently pending acceptance to the ICU and bed. Hemoglobin on admission 9.09, white blood cell count 13.8, sodium 132, potassium 4.7, BUN 26, creatinine 1.08, lactic acid of 6.2, lipase 352. Glucose is in the 300s. Patient is currently intubated and on the mechanical ventilator heart rate in the 140-150s sinus tachycardia. She has been hypotensive with systolic BPS into the 50s. Pulmonary access services librarian is also consulted. General surgery planning to return to the OR for addition re-exploration. Unable to complete ROS as patient is currently intubated and sedated in the ICU PHYSICAL EXAMINATION: GENERAL: The patient is sedated and intubated. not in any acute distress. Well developed, well nourished. Pale. HEENT: Pupils are round and equally reacting to light. EOMI. No scleral icterus. No conjunctival pallor. Normocephalic, atraumatic. No pharyngeal erythema. No thyromegaly. CARDIOVASCULAR: S1 and S2 present. No murmurs, rubs, or gallops. PULMONARY: Chest is clear to auscultation, no wheezing or crackles. ABDOMEN: Soft, nontender, nondistended, normoactive bowel sounds. No palpable organomegaly. MUSCULOSKELETAL: No joint swelling or deformity. EXTREMITIES: No cyanosis, clubbing, or pedal edema. NEUROLOGICAL: Sedated. Unable to complete due to critical condition. SKIN: No rashes. Assessment Acute retroperitoneal bleed and avulstion of the retroperitoneal vein status post exploration of abdomen control of hemorrhage evacuation of hematoma and suture ligation of venous bleeding. Plan for return to the OR with general surgery and vascular surgery as bleeding remains uncontrolled at this time. Possible transfer to [facility] for embolization and IR consultation. Hypovolemic and hemorrhagic shock Acute blood loss anemia require large volume blood transfusion. Unable to exclude underlying DIC. Acute hypoxemic respiratory failure requiring mechanical intubation New onset atrial fibrillation with RVR Lactic acidosis Hypothermia, acute History of IBS and ulcerative colitis Hyperglycemia with no history of diabetes mellitus noted Hx of hypertension Hx hyperlipidemia Gastroesophageal reflux hx COPD history Full Code Plan Patient is currently undergoing massive blood transfusion. has currently received 14 units of packed red blood cells, 4 of FFP, 2 units of platelets, 2 units of cryoprecipitate, with 2 additional units of PRBCs ordered as well as 3 units of cryoprecipitate. Pending possible transfer to tertiary care for embolization. At this time considered unstable for transfer. Patient will be going back to the OR with general surgery and vascular surgery with attempts to control the hemorrhage. Add novolog sliding scale insulin and accuchecks ACHS check hemoglobin A1C when medically stable Continue mechanical ventilation per pulmonary access services librarian Continue norepinephrine/vasopression Continue to monitor hemoglobin Thank you for this consultation we will continue to follow along this hospital stay. The impression and plan of care has been dictated by Windy Young Nurse Practitioner as directed. Dr. Radha MD I have performed a history and physical examination and medical decision making of this patient, discussed the same with the dictator, and agree with the dictators assessment and plan as written, documented as a scribe. Based on total visit time, I have performed more than 50% of this visit. Past Medical History Past Medical History: Eye Disorder, GERD/Reflux, Hyperlipidemia, Hypertension, Osteoarthritis (OA) Additional Past Medical History / Comment(s): Ulcerative Colitis/IBS, diverticulitis, benign colon polyps, hs kidney stones, varicose vein, possible COPD, small cataracts, hx high heart rate. History of Any Multi-Drug Resistant Organisms: None Reported Past Surgical History: Adenoidectomy, Bowel Resection, Cholecystectomy, Heart Catheterization, Hysterectomy, Orthopedic Surgery, Tonsillectomy Additional Past Surgical History / Comment(s): Lithotripsies, colonoscopies, right knee arthroscopy. Past Anesthesia/Blood Transfusion Reactions: Motion Sickness, Postoperative Nausea & Vomiting (PONV) Past Psychological History: Anxiety Smoking Status: Former smoker Past Alcohol Use History: None Reported Past Drug Use History: Marijuana - Past Family History Mother Family Medical History: Cancer Father Family Medical History: Myocardial Infarction (NV) Additional Family Medical History / Comment(s): Father at the age of 83 yrs from a [place]. Medications and Allergies Home Medications Medication Instructions Recorded Confirmed Type Atorvastatin [Lipitor] 20 mg PO DAILY 05/11/16 08/23/24 History Montelukast [Singulair] 10 mg PO DAILY 03/12/19 08/23/24 History Valsartan 160 mg PO BID 11/16/22 08/23/24 History Ezetimibe [Zetia] 10 mg PO DAILY 12/13/22 08/23/24 History Escitalopram [Lexapro] 20 mg PO DAILY 11/15/23 08/23/24 History Mesalamine [Asacol Hd] 1,600 mg PO TID 11/15/23 08/23/24 History Metoprolol Succinate (ER) [Toprol 50 mg PO DAILY 11/15/23 08/23/24 History Xl] Albuterol Sulfate [Ventolin HFA] 2 puff INHALATION RT-QID 08/23/24 08/23/24 History Omeprazole 20 mg PO DAILY 08/23/24 08/23/24 History Allergies Allergy/AdvReac Type Severity Reaction Status Date / Time morphine AdvReac Nausea & Verified 08/23/24 11:28 Vomiting sulfamethoxazole AdvReac Rash/Hives Verified 08/23/24 11:28 [From Bactrim] trimethoprim [From Bactrim] AdvReac Rash/Hives Verified 08/23/24 11:28 Physical Exam Vitals: Vital Signs Temp Pulse Resp BP Pulse Ox FiO2 08/23/24 13:30 111/69 08/23/24 13:15 161 H 125/28 08/23/24 13:10 151 H 24 56/34 08/23/24 13:00 141 H 24 138/55 100 08/23/24 12:45 149 H 134/34 08/23/24 12:30 146 H 138/58 08/23/24 12:15 154 H 124/51 08/23/24 12:00 146 H 16 08/23/24 11:45 151 H 137/76 08/23/24 11:32 100 08/23/24 11:30 134 H 08/23/24 11:15 144 H 08/23/24 11:14 100 08/23/24 11:00 16 08/23/24 10:49 12 08/23/24 08:32 142 H 24 113/58 08/23/24 07:28 94.8 F L 112 H 26 H 80/40 98 08/23/24 07:00 95.2 F L 120 H 28 H 99/78 97 08/23/24 06:30 94.8 F L 91 16 117/101 100 08/23/24 06:20 78 16 126/88 100 08/23/24 06:10 80 16 135/78 100 02/22/25 06:04 95.2 F L 88 16 113/68 99 08/23/24 06:00 100 16 107/66 94 L 08/23/24 05:59 95 F L 101 H 16 107/66 98 08/23/24 05:57 94.8 F L 101 H 16 101/52 100 08/23/24 05:54 94.5 F L 105 H 16 69/42 97 08/23/24 05:50 105 H 16 71/53 97 08/23/24 05:42 93.4 F L 103 H 16 71/49 98 08/23/24 05:35 97 16 73/46 97 08/23/24 05:29 103 H 16 58/22 94 L 08/23/24 05:28 97.4 F L 08/23/24 05:15 102 H 16 89/67 95 08/23/24 05:05 75 14 111/51 97 08/23/24 04:41 96.4 F L 86 14 142/127 96 Intake and Output 08/23/24 08/23/24 08/23/24 06:59 14:59 22:59 Intake Total 1240 7691.346 Output Total 1520 Balance 1240 6171.346 Intake: IV 2850 Dextrose 5% in Water 1, 150 000 ml @ 100 mls/hr IV . [id number] SEBASTIEN with Sodium Bicarb (1 Meq/ml) 150 ml Rx#:[id number] Sodium Chloride 0.9% 1, 2000 000 ml @ 999 mls/hr IV . Q1H1M ONE Rx#:[id number] Tranexamic 1,000 mg/100Ml 200 -NaCl 1,000 mg In Saline 1 100ml.bag @ 200 mls/hr IVPB Q2HR PRN Rx#: [id number] Vancomycin 1,500 mg In 500 Sodium Chloride 0.9% 500 ml 500 ml @ 167 mls/hr IVPB ONCE ONE Rx#: [id number] Intake, IV Titration 180.346 Amount Norepinephrine 4 mg In 160.073 Sodium Chloride 0.9% 250 ml @ 0.03 MCG/KG/MIN 9. 851 mls/hr IV .Q24H SEBASTIEN Rx#:[id number] Vasopressin 20 unit In 20.273 Sodium Chloride 0.9% 50 ml @ 0.03 UNITS/MIN 4.59 mls/hr IV .Q11H7M [facility] Rx# :[id number] Blood Product 1240 4661 Ffp 24 Cpd Unit 309 [id number] Ffp 24 Pher Acda Cnt2 223 Unit [id number] Ffp 24 Pher Acda Cnt2 199 Unit [id number] Ffp 24 Pher Acda Cnt2 206 Unit [id number] Platelet Pheresis Pas 261 Psoralen Unit [id number] Platelet Pheresis Pas 310 Psoralen Unit [id number] Pooled Cryoprecipitate 94 Unit [id number] Pooled Cryoprecipitate 96 Unit [id number] Rc As-1 Unit 310 [id number] Rc As-1 Unit 310 [id number] Rc As-1 Unit 283 [id number] Rc As-1 Unit 310 [id number] Rc As-1 Unit 310 [id number] Rc As-1 Unit 310 [id number] Rc As-1 Unit 310 [id number] Rc As-1 Unit 310 [id number] Rc As-1 Unit 310 [id number] Rc As-1 Unit 310 [id number] Rc Pheresis As-3 Unit 286 [id number] Rc Pheresis As-3 Unit 277 [id number] Rc Pheresis As-3 Unit 283 [id number] Rc Pheresis As-3 Unit 284 [id number] Output: Urine 20 Estimated Blood Loss 500 Other 1000 Other: Voiding Method Indwelling Catheter Weight 86.183 kg ABP, PAP, CO, CI - Last 8 Hours Arterial Blood Pressure 49/31 Arterial Blood Pressure 57/39 Arterial Blood Pressure 66/39 Arterial Blood Pressure 88/52 Arterial Blood Pressure 71/43 Arterial Blood Pressure 118/60 Arterial Blood Pressure 68/44 Arterial Blood Pressure 71/43 Arterial Blood Pressure 64/38 Arterial Blood Pressure 66/33 Results CBC & Chem 7: 08/23/24 04:45 08/23/24 04:45 Labs: Abnormal Lab Results - Last 24 Hours (Table) 08/23/24 08/23/24 08/23/24 Range/Units 04:40 04:45 04:45 WBC 13.8 H (3.8-10.6) k/uL RBC 3.09 L (3.80-5.40) m/uL Hgb 9.9 L (11.4-16.0) gm/dL Hct 30.6 L (34.0-46.0) % Neutrophils # (Manual) 9.66 H (1.3-7.7) k/uL APTT 21.0 L (22.0-30.0) sec ABG pH (7.35-7.45) ABG pO2 (83-108) mmHg ABG HCO3 (21-25) mmol/L ABG Total CO2 (19-24) mmol/L ABG O2 Saturation (94-97) % Hemoglobin (11.4-16.0) gm/dL Sodium (137-145) mmol/L Carbon Dioxide (22-30) mmol/L BUN (7-17) mg/dL Creatinine (0.52-1.04) mg/dL Glucose (74-99) mg/dL POC Glucose (mg/dL) 367 H (70-110) mg/dL Plasma Lactic Acid Peter (0.7-2.0) mmol/L Total Protein (6.3-8.2) g/dL Albumin (3.5-5.0) g/dL Lipase (23-300) U/L Urine Protein (Negative) Urine Glucose (UA) (Negative) Urine Blood (Negative) Ur Leukocyte Esterase (Negative) Urine RBC (0-5) /hpf Urine WBC (0-5) /hpf Urine Mucus (None) /hpf Crossmatch 08/23/24 08/23/24 08/23/24 Range/Units 04:45 04:45 04:45 WBC (3.8-10.6) k/uL RBC (3.80-5.40) m/uL Hgb (11.4-16.0) gm/dL Hct (34.0-46.0) % Neutrophils # (Manual) (1.3-7.7) k/uL APTT (22.0-30.0) sec ABG pH (7.35-7.45) ABG pO2 (83-108) mmHg ABG HCO3 (21-25) mmol/L ABG Total CO2 (19-24) mmol/L ABG O2 Saturation (94-97) % Hemoglobin (11.4-16.0) gm/dL Sodium 132 L (137-145) mmol/L Carbon Dioxide 18 L (22-30) mmol/L BUN 26 H (7-17) mg/dL Creatinine 1.08 H (0.52-1.04) mg/dL Glucose 348 H (74-99) mg/dL POC Glucose (mg/dL) (70-110) mg/dL Plasma Lactic Acid Peter 6.2 H* (0.7-2.0) mmol/L Total Protein 4.7 L (6.3-8.2) g/dL Albumin 2.8 L (3.5-5.0) g/dL Lipase 352 H (23-300) U/L Urine Protein (Negative) Urine Glucose (UA) (Negative) Urine Blood (Negative) Ur Leukocyte Esterase (Negative) Urine RBC (0-5) /hpf Urine WBC (0-5) /hpf Urine Mucus (None) /hpf Crossmatch See Detail 08/23/24 08/23/24 08/23/24 Range/Units 06:44 07:45 10:47 WBC (3.8-10.6) k/uL RBC (3.80-5.40) m/uL Hgb (11.4-16.0) gm/dL Hct (34.0-46.0) % Neutrophils # (Manual) (1.3-7.7) k/uL APTT (22.0-30.0) sec ABG pH (7.35-7.45) ABG pO2 (83-108) mmHg ABG HCO3 (21-25) mmol/L ABG Total CO2 (19-24) mmol/L ABG O2 Saturation (94-97) % Hemoglobin (11.4-16.0) gm/dL Sodium (137-145) mmol/L Carbon Dioxide (22-30) mmol/L BUN (7-17) mg/dL Creatinine (0.52-1.04) mg/dL Glucose (74-99) mg/dL POC Glucose (mg/dL) 411 H 308 H (70-110) mg/dL Plasma Lactic Acid Peter (0.7-2.0) mmol/L Total Protein (6.3-8.2) g/dL Albumin (3.5-5.0) g/dL Lipase (23-300) U/L Urine Protein 1+ H (Negative) Urine Glucose (UA) 3+ H (Negative) Urine Blood Small H (Negative) Ur Leukocyte Esterase Large H (Negative) Urine RBC 14 H (0-5) /hpf Urine WBC 36 H (0-5) /hpf Urine Mucus Rare H (None) /hpf Crossmatch 08/23/24 Range/Units 11:30 WBC (3.8-10.6) k/uL RBC (3.80-5.40) m/uL Hgb (11.4-16.0) gm/dL Hct (34.0-46.0) % Neutrophils # (Manual) (1.3-7.7) k/uL APTT (22.0-30.0) sec ABG pH 7.02 L* (7.35-7.45) ABG pO2 326 H (83-108) mmHg ABG HCO3 9 L* (21-25) mmol/L ABG Total CO2 10 L (19-24) mmol/L ABG O2 Saturation 99.7 H (94-97) % Hemoglobin 7.8 L (11.4-16.0) gm/dL Sodium (137-145) mmol/L Carbon Dioxide (22-30) mmol/L BUN (7-17) mg/dL Creatinine (0.52-1.04) mg/dL Glucose (74-99) mg/dL POC Glucose (mg/dL) (70-110) mg/dL Plasma Lactic Acid Peter (0.7-2.0) mmol/L Total Protein (6.3-8.2) g/dL Albumin (3.5-5.0) g/dL Lipase (23-300) U/L Urine Protein (Negative) Urine Glucose (UA) (Negative) Urine Blood (Negative) Ur Leukocyte Esterase (Negative) Urine RBC (0-5) /hpf Urine WBC (0-5) /hpf Urine Mucus (None) /hpf Crossmatch Assessment and Plan Time with Patient: Greater than 30
[2024-08-23 15:59] VITALS: RESP 24
[2024-08-23 16:19] LABS: Allen Test Performed? Yes
[2024-08-23 16:20] LABS: ABG HCO3 15 mmol/L (21-25); ABG PCO2 34 mmHg (35-45); ABG PH 7.26 (7.35-7.45); ABG PO2 140 mmHg (83-108); ABG TCO2 16 mmol/L (19-24)
[2024-08-23] MEDS: CALCIUM GLUCONATE IN NACL 2 GM in SALINE 1 100ML.BAG IVPB STA (16:30)
[2024-08-23 16:41] VITALS: TEMP 88.2
[2024-08-23 16:48] VITALS: BP 79/53; PULSE 137
[2024-08-23 16:57] LABS: Glucose,Whole Blood 240 mg/dL (70-110)
[2024-08-23] MEDS: PANTOPRAZOLE 40 MG/10 ML VIAL IV SCH (17:06)
--- NOTE | 2024-08-23 17:09 | XR ---
EXAMINATION TYPE: XR chest 1V portable DATE OF EXAM: 08/23/2024 4:47 PM COMPARISON: Chest radiographs from 08/23/2024 CLINICAL INDICATION: Female, 69 years old with history of et-tube, central line, and og-tube placemen t; [facility] TECHNIQUE: XR chest 1V portable Frontal view of the chest. FINDINGS: Lungs/Pleura: There is no evidence of pleural effusion, focal consolidation, or pneumothorax. Pulmonary vascularity: Unremarkable. Heart/mediastinum: Cardiomediastinal silhouette is unremarkable. Musculoskeletal: Degenerative changes of the shoulder joints. Other findings: None Lines/Tubes: Endotracheal tube with distal tip 3.6 cm above the sumeet. Nasogastric tube with its distal tip and side-port projecting under the diaphragm. Right internal jugular central venous catheter with distal tip at the cavoatrial junction. IMPRESSION: Support tubes and right line in proper position [facility], , 08/23/2024 5:07 PM
[2024-08-23] MEDS ORDERED: INSULIN LISPRO (HumaLOG) 100 UNIT/ML 10 mL VL SQ SCH (17:30)
--- NOTE | 2024-08-23 20:23 | P.GSHP ---
History of Present Illness H&P Date: 08/23/24 Chief Complaint: abdominal pain Patient is a 69-year-old female presenting today for sudden onset abdominal pain. Went to the bathroom this evening, started having severe lower abdominal pain. Had a bowel movement that was normal and color and consistency for her, no bloody stools. Patient's found her in the bathroom on the floor, patient too weak to get up. Per EMS patient hyperglycemia without history of diabetes. Denies history of prior abdominal surgeries, not on thinners. History is limited by acute of condition Past Medical History Past Medical History: Eye Disorder, GERD/Reflux, Hyperlipidemia, Hypertension, Osteoarthritis (OA) Additional Past Medical History / Comment(s): Ulcerative Colitis/IBS, diverticulitis, benign colon polyps, hs kidney stones, varicose vein, possible COPD, small cataracts, hx high heart rate. History of Any Multi-Drug Resistant Organisms: None Reported Past Surgical History: Adenoidectomy, Bowel Resection, Cholecystectomy, Heart Catheterization, Hysterectomy, Orthopedic Surgery, Tonsillectomy Additional Past Surgical History / Comment(s): Lithotripsies, colonoscopies, right knee arthroscopy. Past Anesthesia/Blood Transfusion Reactions: Motion Sickness, Postoperative Nausea & Vomiting (PONV) Past Psychological History: Anxiety Smoking Status: Former smoker Past Alcohol Use History: None Reported Past Drug Use History: Marijuana - Past Family History Mother Family Medical History: Cancer Father Family Medical History: Myocardial Infarction ([place]) Additional Family Medical History / Comment(s): Father at the age of 83 yrs from a [place]. Medications and Allergies Home Medications Medication Instructions Recorded Confirmed Type Atorvastatin [Lipitor] 20 mg PO DAILY 05/11/16 08/23/24 History Montelukast [Singulair] 10 mg PO DAILY 03/12/19 08/23/24 History Valsartan 160 mg PO BID 11/16/22 08/23/24 History Ezetimibe [Zetia] 10 mg PO DAILY 12/13/22 08/23/24 History Escitalopram [Lexapro] 20 mg PO DAILY 11/15/23 08/23/24 History Mesalamine [Asacol Hd] 1,600 mg PO TID 11/15/23 08/23/24 History Metoprolol Succinate (ER) [Toprol 50 mg PO DAILY 11/15/23 08/23/24 History Xl] Albuterol Sulfate [Ventolin HFA] 2 puff INHALATION RT-QID 08/23/24 08/23/24 History Omeprazole 20 mg PO DAILY 08/23/24 08/23/24 History Allergies Allergy/AdvReac Type Severity Reaction Status Date / Time morphine AdvReac Nausea & Verified 08/23/24 11:28 Vomiting sulfamethoxazole AdvReac Rash/Hives Verified 08/23/24 11:28 [From Bactrim] trimethoprim [From Bactrim] AdvReac Rash/Hives Verified 08/23/24 11:28 Surgical - Exam Osteopathic Statement: *. No significant issues noted on an osteopathic structural exam other than those noted in the History and Physical/Consult. Vital Signs Temp Pulse Resp BP Pulse Ox 96.4 F L 86 14 142/127 96 08/23/24 04:41 08/23/24 04:41 08/23/24 04:41 08/23/24 04:41 08/23/24 04:41 gen: obtunded cv: tachycardic pul: shallow abd: soft, distended, no guarding, ext: lower extremity appears to be mottled Results - Labs 08/23/24 04:45 08/23/24 04:45 Abnormal Lab Results - Last 24 Hours (Table) 08/23/24 08/23/24 08/23/24 Range/Units 04:40 04:45 04:45 WBC 13.8 H (3.8-10.6) k/uL RBC 3.09 L (3.80-5.40) m/uL Hgb 9.9 L (11.4-16.0) gm/dL Hct 30.6 L (34.0-46.0) % Neutrophils # (Manual) 9.66 H (1.3-7.7) k/uL APTT 21.0 L (22.0-30.0) sec ABG pH (7.35-7.45) ABG pCO2 (35-45) mmHg ABG pO2 (83-108) mmHg ABG HCO3 (21-25) mmol/L ABG Total CO2 (19-24) mmol/L ABG O2 Saturation (94-97) % Hemoglobin (11.4-16.0) gm/dL Sodium (137-145) mmol/L Carbon Dioxide (22-30) mmol/L BUN (7-17) mg/dL Creatinine (0.52-1.04) mg/dL Glucose (74-99) mg/dL POC Glucose (mg/dL) 367 H (70-110) mg/dL Plasma Lactic Acid Peter (0.7-2.0) mmol/L Total Protein (6.3-8.2) g/dL Albumin (3.5-5.0) g/dL Lipase (23-300) U/L Urine Protein (Negative) Urine Glucose (UA) (Negative) Urine Blood (Negative) Ur Leukocyte Esterase (Negative) Urine RBC (0-5) /hpf Urine WBC (0-5) /hpf Urine Mucus (None) /hpf Crossmatch 08/23/24 08/23/24 08/23/24 Range/Units 04:45 04:45 04:45 WBC (3.8-10.6) k/uL RBC (3.80-5.40) m/uL Hgb (11.4-16.0) gm/dL Hct (34.0-46.0) % Neutrophils # (Manual) (1.3-7.7) k/uL APTT (22.0-30.0) sec ABG pH (7.35-7.45) ABG pCO2 (35-45) mmHg ABG pO2 (83-108) mmHg ABG HCO3 (21-25) mmol/L ABG Total CO2 (19-24) mmol/L ABG O2 Saturation (94-97) % Hemoglobin (11.4-16.0) gm/dL Sodium 132 L (137-145) mmol/L Carbon Dioxide 18 L (22-30) mmol/L BUN 26 H (7-17) mg/dL Creatinine 1.08 H (0.52-1.04) mg/dL Glucose 348 H (74-99) mg/dL POC Glucose (mg/dL) (70-110) mg/dL Plasma Lactic Acid Peter 6.2 H* (0.7-2.0) mmol/L Total Protein 4.7 L (6.3-8.2) g/dL Albumin 2.8 L (3.5-5.0) g/dL Lipase 352 H (23-300) U/L Urine Protein (Negative) Urine Glucose (UA) (Negative) Urine Blood (Negative) Ur Leukocyte Esterase (Negative) Urine RBC (0-5) /hpf Urine WBC (0-5) /hpf Urine Mucus (None) /hpf Crossmatch See Detail 08/23/24 08/23/24 08/23/24 Range/Units 06:44 07:45 10:47 WBC (3.8-10.6) k/uL RBC (3.80-5.40) m/uL Hgb (11.4-16.0) gm/dL Hct (34.0-46.0) % Neutrophils # (Manual) (1.3-7.7) k/uL APTT (22.0-30.0) sec ABG pH (7.35-7.45) ABG pCO2 (35-45) mmHg ABG pO2 (83-108) mmHg ABG HCO3 (21-25) mmol/L ABG Total CO2 (19-24) mmol/L ABG O2 Saturation (94-97) % Hemoglobin (11.4-16.0) gm/dL Sodium (137-145) mmol/L Carbon Dioxide (22-30) mmol/L BUN (7-17) mg/dL Creatinine (0.52-1.04) mg/dL Glucose (74-99) mg/dL POC Glucose (mg/dL) 411 H 308 H (70-110) mg/dL Plasma Lactic Acid Peter (0.7-2.0) mmol/L Total Protein (6.3-8.2) g/dL Albumin (3.5-5.0) g/dL Lipase (23-300) U/L Urine Protein 1+ H (Negative) Urine Glucose (UA) 3+ H (Negative) Urine Blood Small H (Negative) Ur Leukocyte Esterase Large H (Negative) Urine RBC 14 H (0-5) /hpf Urine WBC 36 H (0-5) /hpf Urine Mucus Rare H (None) /hpf Crossmatch 08/23/24 08/23/24 08/23/24 Range/Units 11:30 16:10 16:56 WBC (3.8-10.6) k/uL RBC (3.80-5.40) m/uL Hgb (11.4-16.0) gm/dL Hct (34.0-46.0) % Neutrophils # (Manual) (1.3-7.7) k/uL APTT (22.0-30.0) sec ABG pH 7.02 L* 7.26 L (7.35-7.45) ABG pCO2 34 L (35-45) mmHg ABG pO2 326 H 140 H (83-108) mmHg ABG HCO3 9 L* 15 L (21-25) mmol/L ABG Total CO2 10 L 16 L (19-24) mmol/L ABG O2 Saturation 99.7 H 99.0 H (94-97) % Hemoglobin 7.8 L (11.4-16.0) gm/dL Sodium (137-145) mmol/L Carbon Dioxide (22-30) mmol/L BUN (7-17) mg/dL Creatinine (0.52-1.04) mg/dL Glucose (74-99) mg/dL POC Glucose (mg/dL) 240 H (70-110) mg/dL Plasma Lactic Acid Peter (0.7-2.0) mmol/L Total Protein (6.3-8.2) g/dL Albumin (3.5-5.0) g/dL Lipase (23-300) U/L Urine Protein (Negative) Urine Glucose (UA) (Negative) Urine Blood (Negative) Ur Leukocyte Esterase (Negative) Urine RBC (0-5) /hpf Urine WBC (0-5) /hpf Urine Mucus (None) /hpf Crossmatch Diabetes panel 08/23/24 Range/Units 04:45 Sodium 132 L (137-145) mmol/L Potassium 4.7 (3.5-5.1) mmol/L Chloride 103 (98-107) mmol/L Carbon Dioxide 18 L (22-30) mmol/L BUN 26 H (7-17) mg/dL Creatinine 1.08 H (0.52-1.04) mg/dL Glucose 348 H (74-99) mg/dL Calcium 8.4 (8.4-10.2) mg/dL AST 17 (14-36) U/L ALT 17 (4-34) U/L Alkaline Phosphatase 46 (38-126) U/L Total Protein 4.7 L (6.3-8.2) g/dL Albumin 2.8 L (3.5-5.0) g/dL Calcium panel 08/23/24 Range/Units 04:45 Calcium 8.4 (8.4-10.2) mg/dL Albumin 2.8 L (3.5-5.0) g/dL Pituitary panel 08/23/24 Range/Units 04:45 Sodium 132 L (137-145) mmol/L Potassium 4.7 (3.5-5.1) mmol/L Chloride 103 (98-107) mmol/L Carbon Dioxide 18 L (22-30) mmol/L BUN 26 H (7-17) mg/dL Creatinine 1.08 H (0.52-1.04) mg/dL Glucose 348 H (74-99) mg/dL Calcium 8.4 (8.4-10.2) mg/dL Adrenal panel 08/23/24 Range/Units 04:45 Sodium 132 L (137-145) mmol/L Potassium 4.7 (3.5-5.1) mmol/L Chloride 103 (98-107) mmol/L Carbon Dioxide 18 L (22-30) mmol/L BUN 26 H (7-17) mg/dL Creatinine 1.08 H (0.52-1.04) mg/dL Glucose 348 H (74-99) mg/dL Calcium 8.4 (8.4-10.2) mg/dL Total Bilirubin 0.7 (0.2-1.3) mg/dL AST 17 (14-36) U/L ALT 17 (4-34) U/L Alkaline Phosphatase 46 (38-126) U/L Total Protein 4.7 L (6.3-8.2) g/dL Albumin 2.8 L (3.5-5.0) g/dL Assessment and Plan Assessment: 69 yo female w/ mesenteric/retroperitoneal bleed -continue resuscitation -OR stat Time with Patient: Greater than 30
--- NOTE | 2024-08-23 20:44 | P.OP ---
Date of Procedure: 08/23/24 Anesthesia: SHAHEED Surgeon: Garth King Pathology: none sent Condition: stable Disposition: ICU Indications for Procedure: retroperitoneal bleed Operative Findings: large retroperitoneal bleed Description of Procedure: Patient was brought to the operative suite where she was cleaned and draped in sterile fashion. A timeout was performed and everyone agreed with the information recited. Next a number 10 blade was then used to make a midline incision and electrocautery was then used to gain access to the abdomen. Once in the abdomen a large retroperitoneal bleed was observed. At this point, i consulted vascular surgeon Dr. Olmos for further intervention. Please see her dictation for details.
[2024-08-24] MEDS ORDERED: VANCOMYCIN 1,500 MG in SODIUM CHLORIDE 0.9% 500 ML 500 ML IVPB SCH (08:00)
--- NOTE | 2024-10-01 22:26 | P.DS ---
Providers Date of admission: 08/23/24 06:51 Attending physician: Garth King DO Consults: 08/23/24 06:51 Consult Physician Stat Consulting Provider: Florinda Helton Consult Reason/Comments: Septic Shock Do you want consulting provider notified?: Already Contacted 08/23/24 12:17 Consult Physician Stat Consulting Provider: Ignacio Garcia Consult Reason/Comments: medical management Do you want consulting provider notified?: Already Contacted Primary care physician: [facility] Course: The patient was admitted secondary to a large retroperitoneal bleed the patient was hypotensive and tachycardic upon arrival and the patient received MTP and I emergently took the patient to the operating room where exploratory laparotomy was performed and a large retroperitoneal bleed was observed vascular surgery was involved and we were able to control the bleeding however after in the ICU the patient started to bleed again we felt that the patient was unstable and needed to be in the surgical ICU so we transferred the patient to [facility] Procedures: Exploratory laparotomy x 2 Patient Condition at Discharge: Critical Plan - Discharge Summary New Discharge Prescriptions: No Action Atorvastatin [Lipitor] 20 mg PO DAILY Montelukast [Singulair] 10 mg PO DAILY Valsartan 160 mg PO BID Escitalopram [Lexapro] 20 mg PO DAILY Omeprazole 20 mg PO DAILY Ezetimibe [Zetia] 10 mg PO DAILY Metoprolol Succinate (ER) [Toprol Xl] 50 mg PO DAILY Mesalamine [Asacol Hd] 1,600 mg PO TID Albuterol Sulfate [Ventolin HFA] 2 puff INHALATION RT-QID Discharge Medication List Atorvastatin [Lipitor] 20 mg PO DAILY 05/11/16 [History] Montelukast [Singulair] 10 mg PO DAILY 03/12/19 [History] Valsartan 160 mg PO BID 11/16/22 [History] Ezetimibe [Zetia] 10 mg PO DAILY 12/13/22 [History] Escitalopram [Lexapro] 20 mg PO DAILY 11/15/23 [History] Mesalamine [Asacol Hd] 1,600 mg PO TID 11/15/23 [History] Metoprolol Succinate (ER) [Toprol Xl] 50 mg PO DAILY 11/15/23 [History] Albuterol Sulfate [Ventolin HFA] 2 puff INHALATION RT-QID 08/23/24 [History] Omeprazole 20 mg PO DAILY 08/23/24 [History] Follow up Appointment(s)/Referral(s): Mandy Garrison MD [Primary Care Provider] - 1-2 days Discharge Disposition: TRANSFER TO [facility]
--- NOTE | 2024-10-02 07:27 | CDI ---
Documentation Clarification Form Date: 10/02/24 From: Renae Garcia Admit Date: 08/23/2024 06:51:00 AM Patient Name: Dayan Craig Visit Number: [id number] Discharge Date: 08/23/2024 08:00:00 PM ATTENTION: The Clinical Documentation Specialists (CDI) and [facility] Coding Staff appreciate your assistance in clarifying documentation. Please respond to the clarification below the line at the bottom and electronically sign. The CDI & [facility] Coding staff will review the response and follow-up if needed. Please note: Queries are made part of the Legal Health Record. If you have any questions, please contact the author of this message via ITS. Doctor/Provider: Garth King, Shock is documented in Dr. Helton and Radha consults and ED Note. Additional clarification regarding the type of shock is requested. Patient history/risk factors: GERD, HLD, HTN, COPD, ulcerative colitis Clinical Indicators: Acuteretroperitoneal bleedingwith a large retroperitonealhematoma,status postexplorationof the abdomen,evacuation of hematomaand patient was found to have aavulsionof the retroperitoneal vein andsuture ligationwas performed. Unfortunately, the patient continues to bleed and the procedure itselfwas not successful and there has been incompletecontrol of hemorrhageas the patient is currently in the intensive care unit, and againmacy. Treatment: Norepinephrine Bitartate IV, subsequent transfer to [place] Please clarify the type of shock, if known: [ ] Septic Shock [x ] Hypovolemic Shock [ ] Cardiogenic Shock [ ] Traumatic Shock [ ] Other, please specify [ ] Unable to determine MTDD
== END 2024-08-23 20:00 | disposition short-term general hospital (02) | DRG 853 ==
LOC: EC 04:37 → 2SICU 06:51
PROVIDERS: ADMIT Surgery; ATTEND Surgery
PROC: 0WJH0ZZ Inspection of Retroperitoneum, Open Approach (ICD-10-PCS; 2024-08-23)
PROC: 5A1935Z Respiratory Ventilation, Less than 24 Consecutive Hours (ICD-10-PCS; 2024-08-23)
PROC: 3E043XZ Introduction of Vasopressor into Central Vein, Percutaneous Approach (ICD-10-PCS; 2024-08-23)
PROC: 30233P1 Transfusion of Nonautologous Frozen Red Cells into Peripheral Vein, Percutaneous Approach (ICD-10-PCS; 2024-08-23)
PROC: 06HY33Z Insertion of Infusion Device into Lower Vein, Percutaneous Approach (ICD-10-PCS; 2024-08-23)
PROC: 4A133B1 Monitoring of Arterial Pressure, Peripheral, Percutaneous Approach (ICD-10-PCS; 2024-08-23)
PROC: 04HY32Z Insertion of Monitoring Device into Lower Artery, Percutaneous Approach (ICD-10-PCS; 2024-08-23)
PROC: 30243R1 Transfusion of Nonautologous Platelets into Central Vein, Percutaneous Approach (ICD-10-PCS; 2024-08-23)
PROC: 4A133J1 Monitoring of Arterial Pulse, Peripheral, Percutaneous Approach (ICD-10-PCS; 2024-08-23)
PROC: 30243K1 Transfusion of Nonautologous Frozen Plasma into Central Vein, Percutaneous Approach (ICD-10-PCS; 2024-08-23)
PROC: 30243M1 Transfusion of Nonautologous Plasma Cryoprecipitate into Central Vein, Percutaneous Approach (ICD-10-PCS; 2024-08-23)
PROC: 0W3H0ZZ Control Bleeding in Retroperitoneum, Open Approach (ICD-10-PCS; principal; 2024-08-23 07:18)
PROC: 06L Lower Veins, Occlusion (ICD-10-PCS; principal; 2024-08-23 07:18)
DX: A41.9 Sepsis, unspecified organism (principal); J96.01 Acute respiratory failure with hypoxia; K66.1 Hemoperitoneum; R65.21 Severe sepsis with septic shock; R57.1 Hypovolemic shock; S35.514A Injury of right iliac vein, initial encounter; J44.9 Chronic obstructive pulmonary disease, unspecified; I10 Essential (primary) hypertension; K51.90 Ulcerative colitis, unspecified, without complications; E87.20 Acidosis, unspecified; D62 Acute posthemorrhagic anemia; I48.91 Unspecified atrial fibrillation; R68.0 Hypothermia, not associated with low environmental temperature; K21.9 Gastro-esophageal reflux disease without esophagitis; E78.5 Hyperlipidemia, unspecified; R73.9 Hyperglycemia, unspecified; F41.9 Anxiety disorder, unspecified; I83.90 Asymptomatic varicose veins of unspecified lower extremity; Z87.891 Personal history of nicotine dependence; Z79.899 Other long term (current) drug therapy; Z88.5 Allergy status to narcotic agent; Z88.2 Allergy status to sulfonamides
CPT/HCPCS: 36415; 36430; 36556; 71045; 71275; 74174; 80053; 81001; 82150; 82805; 83605; 83690; 84484; 85025; 85610; 85730; 86850; 86891; 86900; 86901; 86920; 87070; 87086; 87205; 93005; 94002; 96365; 96366; 96367; 96368; 96375; 99291